=== PATIENT | male | born 1990 | race Caucasian/White ===

== ENCOUNTER 2021-05-31 12:28 | Inpatient (IN) | payer MEDICAID ==
[~2021-05-31] VITALS: Ht 185.4 cm; Wt 77.6 kg
[~2021-05-31 12:28] MED LIST: NICO-668 BC; NICO-687 TD; NO HOME MEDS; RISP2TAB85 PO; TRAZ-251 PO
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
[2021-05-31 13:55] VITALS: BP 138/95
[2021-05-31] MEDS ORDERED: mag hydrox/Alum hydrox/simeth 30ml oral suspension PO PRN (14:05)
[2021-05-31] MEDS ORDERED: acetaminophen 325mg tablet PO PRN ×2 (14:05)
[2021-05-31] MEDS ORDERED: loperamide 2mg capsule PO PRN (14:05)
[2021-05-31] MEDS ORDERED: OLAN2.5T3 PO (16:18)
[2021-05-31] MEDS: NICOTINE POLACRILEX 2 MG LOZENGE BC PRN ×3 (16:26→21:55)
[2021-05-31] MEDS: OLANZAPINE 5 MG TABLET PO PRN (18:56)
[2021-05-31] MEDS ORDERED: LORazepam 1 MG tablet PO ONE ×2 (19:10→23:40)
[2021-05-31] MEDS: traZODone 50mg tablet PO PRN (19:35)
[2021-05-31 20:00] VITALS: BP 129/87
[2021-05-31] MEDS ORDERED: olanzapine 10mg tablet PO SCH (21:00)
--- NOTE | 2021-06-01 00:47 | NUR ---
Nursing Progress Note: Jose Alejandro Legal hold: 5150 Client on involuntary status for GD Report received from JOSE Lay with use of SBAR Why are they here: Pt. a direct admit from [facility]. Per report pt. withdrawing from ETOH after binge drinking for over a year. Pt. reportedly drinking 1 quart of whiskey daily. Pt. 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 and experiencing AH. Pt. placed on 5150 for GD. Pt. had acute pancreatitis but was medically cleared for transfer. Pt. has been at [facility] since 05/24/21. Assessment What has happened this shift: Received pt pacing the hallways. Pt came to this RN after shift change and stated that a PCT (from day shift) promised him he could switch to bed B. After talking with the CN and room not being cleaned we were unable to make this request. Pt became very agitated and anxious. Provider notified and given 2MG Ativan with good effect. Pt then became adamant about being discharged this evening and wanted to talk to the provider. We were able to re-direct pt and he calmed down before snack time. We moved another pt in with Jose Alejandro and he ended up switching to bed B. Pt denies SI/HI and states he has some depression and anxiety. At 2330 pt began pacing and requested a sleeping aid. Provider ordered 2MG Ativan. S/I, H/I: Denies A/VH: Denies. Sleep: ADL's: Independent Group attendance: NA Were meds taken: Denies. None observed. Mental Status Exam Appearance: Disheveled, messy hair dressed in green unit scrubs Eye contact: WNL Behavior: agitated, anxious Speech: WNL Mood: agitated Affect: Angry/irritable Thought process: Linear Thought Content: Focused on switching beds/wanted to leave tonight Cognition: A&O x4 Insight: Fair Judgment: Fair Interventions PRN's used: trazadone, Ativan 2mg X2, Zyprexa 5mg Therapeutic interventions: Maintained a safe and supportive environment, ensured contract for safety, provided clear and simple instructions, provided direction and encouragement regarding performance of ADLs, and maintained Q15 minute safety checks. Restraints/seclusion/emergency medication: NA Justification of Continued Inpatient Treatment: Requires interruption of current crisis in a safe and therapeutic environment.
[2021-06-01] MEDS: NICOTINE POLACRILEX 2 MG LOZENGE BC PRN ×2 (02:47→11:43)
[2021-06-01 07:42] LABS: EOSINOPHILS # (AUTO) 0.3 X10'3 (0-0.9); EOSINOPHILS % (AUTO) 3.9 % (0-6); HEMATOCRIT 34.4 % (42.0-52.0); LYMPHOCYTES # (AUTO) 1.6 X10'3 (1.1-4.8); MONOCYTES # (AUTO) 1.5 X10'3 (0-0.9); MONOCYTES % (AUTO) 22.2 % (2-12); NEUTROPHILS # (AUTO) 3.2 X10'3 (1.8-7.7); WHITE BLOOD COUNT 6.7 X10'3 (4.5-11.0)
[2021-06-01 07:46] LABS: BASOPHILS # (AUTO) 0.1 X10'3 (0-0.2); BASOPHILS % (AUTO) 2.1 % (0-1); HEMOGLOBIN 11.9 g/dl (14.0-17.9); LYMPHOCYTES % (AUTO) 24.4 % (21-51); MEAN CORPUSCULAR HEMOGLOBIN 35.7 PG (27.0-31.0); MEAN CORPUSCULAR HGB CONC 34.5 g/dL (33.0-36.5); MEAN CORPUSCULAR VOLUME 103.6 FL (78-98); MEAN PLATELET VOLUME 7.5 FL (7.4-10.4); NEUTROPHILS % (AUTO) 47.4 % (42-75); PLATELET COUNT 594 X10'3 (140-440); RED BLOOD COUNT 3.32 X10'6 (4.70-6.10); RED CELL DISTRIBUTION WIDTH 13.4 % (11.5-14.5)
--- NOTE | 2021-06-01 08:14 | NUR ---
Malnutrition consult: Pt admitted from [facility] w/ EtOH withdrawal and hx of schizophrenia and bipolar per EMR. Pt has apparently been drinking 1 quart of liquor per day for the last year. Scaled wt hx shows a 14% wt loss over 2 years. Pt has reportedly had poor appetite for the last 3 months, though had ~85% of first meal here. Pt does appear thin per nursing note, no edema noted. At this time pt does not meet minimum criteria for malnutrition. Addendum: 06/01/21 at [address] Amended: Links added.
[2021-06-01 08:36] LABS: ALANINE AMINOTRANSFERASE 178 U/L (12-78); ALBUMIN 3.7 G/DL (3.4-5.0); ALBUMIN/GLOBULIN RATIO 1.2 (1.1-1.5); ALKALINE PHOSPHATASE 697 IU/L (46-116); ANION GAP 11 (8-16); ASPARTATE AMINO TRANSFERASE 99 U/L (10-37); BILIRUBIN,TOTAL 1.1 MG/DL (0.1-1.0); BLOOD UREA NITROGEN 10 MG/DL (7-18); BUN/CREATININE RATIO 16.9 (5.4-32.0); CALCIUM 9.8 MG/DL (8.5-10.1); CHLORIDE 99 MMOL/L (99-107); CHOL/HDL RATIO 5.6 (0.00-4.99); CHOLESTEROL 265 MG/DL (0-200); CREATININE 0.59 MG/DL (0.60-1.10); GLUCOSE 107 MG/DL (70-104); HDL CHOLESTEROL 47 MG/DL (35-60); LDL CHOLESTEROL 180 MG/DL (50-100); POTASSIUM 4.7 MMOL/L (3.5-5.1); SODIUM 137 MMOL/L (135-145); TOTAL CARBON DIOXIDE 26.8 MMOL/L (24-32); TOTAL PROTEIN 6.9 G/DL (6.4-8.2); TRIGLYCERIDES 104 MG/DL (20-135); eGFR > 90 ML/MIN
[2021-06-01 08:59] VITALS: BP 143/99
[2021-06-01 09:19] LABS: HEMOGLOBIN A1C 4.7 % (4.5-6.2)
[2021-06-01] MEDS: nicotine 21mg patch - 24 hr TD SCH (09:25)
--- NOTE | 2021-06-01 14:25 | NUR ---
Nursing Progress Note: Legal hold: 5150 Client on involuntary status for GD Report received from Mimi Van RN with use of SBAR Why are they here: Pt. is a direct admit from [facility]. Per report pt. withdrawing from ETOH after binge drinking for over a year. Pt. reportedly drinking 1 quart of whiskey daily. Pt. 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 He is experiencing AH. Pt. placed on 5150 for GD. Pt. had acute pancreatitis but was medically cleared for transfer. Pt. has been at [facility] since 05/24/21. Assessment What has happened this shift: Observed pt resting on his bed at the start of the shift. Pt observed before breakfast pacing the halls. Pt ate his meals and snacks in the main room with his peers. He is anxiously awaiting to see a provider hoping to be discharged. He isolates to his room most of the shift. S/I, H/I: Denies A/VH: Denies. Sleep: Did not sleep this shift ADL's: Independent Group attendance: NA Were Meds taken: Nicotine patch he has not see a provider. Mental Status Exam Appearance: Disheveled, messy hair dressed in green unit scrubs Eye contact: WNL Behavior: Anxious Speech: somewhat pressured Mood: slightly irritated waiting to see a doctor Affect: congruent with mood Thought process: Linear Thought Content: Focused on leaving Cognition: A&O x4 Insight: Fair Judgment: Fair Interventions PRN's used: Nicotine Irving. Therapeutic interventions: 1:1 assessment with therapeutic communication, provided PRN as requested, encouraged patience to stay in the hospital until seen by a provider, provided clear and simple instructions, provided direction and encouragement regarding performance of ADLs, and monitored Q15 minute safety checks. Restraints/seclusion/emergency medication: NA Justification of Continued Inpatient Treatment: Requires interruption of current crisis in a safe and therapeutic environment.
[2021-06-01] MEDS ORDERED: OLANZapine 5mg rapidly disint. tablet PO ONE (16:25)
[2021-06-01] MEDS ORDERED: diphenhydrAMINE 25mg capsule PO ONE (16:25)
[2021-06-01] MEDS ORDERED: LORazepam 1 MG tablet PO ONE (16:25)
[2021-06-01] MEDS: lactose-reduced food (Ensure High Protein) 237ml bottle PO SCH (18:18)
[2021-06-01 19:59] VITALS: BP 139/83
[2021-06-01] MEDS: olanzapine 10mg tablet PO SCH (20:06)
[2021-06-01] MEDS: thiamine 100mg tablet PO SCH (20:06)
[2021-06-01] MEDS: traZODone 50mg tablet PO PRN (23:33)
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
--- NOTE | 2021-06-02 00:57 | NUR ---
Nursing Progress Note: Legal hold: 5150 Client on involuntary status for GD Report received from JOSE Garcia with use of SBAR Why are they here: Pt. is a direct admit from [facility]. Per report pt. withdrawing from ETOH after binge drinking for over a year. Pt. reportedly drinking 1 quart of whiskey daily. Pt. 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 He is experiencing AH. Pt. placed on 5150 for GD. Pt. had acute pancreatitis but was medically cleared for transfer. Pt. has been at [facility] since 05/24/21. Assessment What has happened this shift: Pt lying on bed at start of shift. Pt suspicious of medications. "What are these" When explained Zyprexa helps you think more clearly Pt said "I am the greatest thinker in the history of the world" Then proceeded to take his meds including the Zyprexa. Pt allowed to stay in group room an extra hour to finish watching a movie. When staff closed room pt became very angry. Paced up and down in halls loudly complaining. He calmed down after about 5 minutes and apologized to staff. Took PRN Trazodone and after more pacing went to bed. S/I, H/I: Denies A/VH: Denies. Sleep:sleeping at this ADL's: Independent Group attendance: NA Were Meds taken: yes
[2021-06-02] MEDS: NICOTINE POLACRILEX 2 MG LOZENGE BC PRN ×4 (02:46→16:30)
--- NOTE | 2021-06-02 05:37 | NUR ---
Pt did not sleep at all this shift. Pt took PRN Trazodone at 2330 but refused any further medications to help him sleep. Refused to remove Nicotine Patch.
[2021-06-02] MEDS: folic acid 1mg tablet PO SCH (07:58)
[2021-06-02] MEDS: olanzapine 10mg tablet PO SCH ×2 (07:58→20:35)
[2021-06-02] MEDS: cyanocobalamin 500mcg tablet PO SCH (07:58)
[2021-06-02] MEDS: thiamine 100mg tablet PO SCH ×2 (07:58→20:35)
[2021-06-02] MEDS: multivitamins, therapeutics tablet PO SCH (07:58)
[2021-06-02] MEDS: nicotine 21mg patch - 24 hr TD SCH (07:58)
[2021-06-02] MEDS: lactose-reduced food (Ensure High Protein) 237ml bottle PO SCH ×3 (08:00→18:00)
[2021-06-02 08:16] VITALS: BP 142/96
--- NOTE | 2021-06-02 14:10 | NUR ---
Called [facility] to inform them that Dr Del Toro completed LPS referral. Faxed LPS referral to [facility] (Attn: Francheska). Fax# [phone] Phone# [phone] JOSE Johnson
--- NOTE | 2021-06-02 14:42 | NUR ---
Pt. attended group today. We talked about how we all look at the world differently due to our core beliefs. These core beliefs then inform thoughts and behaviors. Each pt. identified one negative core belief and then wrote out three truths that contradict their negative beliefs to work on thinking differently. Pt. came into the group toward the end of the group. He reported he needed a piece of paper that he could write his name on. One was given to him and he proceeded to practice writing his name on the page until he was satisfied with how his name looked. He then ripped out his around his name and asked if he could tape it to the wall. We located a spot on the wall and he taped his name there. After taping it he reported that he felt better to have his name there as a representation of the fact that he had been here. His demeanor was calm and pleasant. His thought process was linear and focused on completing his desire for his name to be on the wall. Meg Manning LCSW
--- NOTE | 2021-06-02 15:33 | NUR ---
Nursing Progress Note: Legal hold: 5150 Client on involuntary status for GD Report received from Marie GARCIA with use of SBAR Why are they here: Pt. is a direct admit from [facility]. Per report pt. withdrawing from ETOH after binge drinking for over a year. Pt. reportedly drinking 1 quart of whiskey daily. Pt. 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 He is experiencing AH. Pt. placed on 5150 for GD. Pt. had acute pancreatitis but was medically cleared for transfer. Pt. has been at [facility] since 05/24/21. Assessment What has happened this shift: Observed pt resting on his bed at the start of the shift. Pt pacing the halls frequently throughout the shift. Pt ate his meals and snacks in the main room with his peers. He is anxiously awaiting to see a provider hoping to be discharged. He isolates to his room most of the shift. Pt requested shower this am. Pt has been calmer today and does not verbalize as much delusional thought content today. S/I, H/I: Denies A/VH: Denies. Sleep: Did not sleep this shift ADL's: Independent Group attendance: no Were Meds taken: yes Mental Status Exam Appearance: Disheveled, messy hair dressed in green unit scrubs Eye contact: WNL Behavior: Anxious Speech: somewhat pressured Mood: slightly irritated waiting to see a doctor Affect: congruent with mood Thought process: Linear Thought Content: Focused on leaving Cognition: A&O x4 Insight: Fair Judgment: Fair Interventions PRN's used: Nicotine Irving Therapeutic interventions: 1:1 assessment with therapeutic communication, provided PRN as requested, encouraged patience to stay in the hospital until seen by a provider, provided clear and simple instructions, provided direction and encouragement regarding performance of ADLs, and monitored Q15 minute safety checks. Restraints/seclusion/emergency medication: NA Justification of Continued Inpatient Treatment: Requires interruption of current crisis in a safe and therapeutic environment.
[2021-06-02 19:13] VITALS: BP 135/95
[2021-06-02] MEDS: traZODone 50mg tablet PO PRN (20:35)
[2021-06-02] MEDS ORDERED: traZODone 50mg tablet PO ONE (20:40)
--- NOTE | 2021-06-02 22:09 | NUR ---
Nursing Progress Note: Legal hold: 5150 Client on involuntary status for GD Report received from Fredo GARCIA with use of SBAR Why are they here: Pt. is a direct admit from [facility]. Per report pt. withdrawing from ETOH after binge drinking for over a year. Pt. reportedly drinking 1 quart of whiskey daily. Pt. 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 He is experiencing AH. Pt. placed on 5150 for GD. Pt. had acute pancreatitis but was medically cleared for transfer. Pt. has been at [facility] since 05/24/21. Assessment What has happened this shift: Pt is sitting on his bed at change of shift. He states his day was "ok" Pt requested to trim his fingernails and tech stood by while he trimmed them. Pt took HS meds and declined to remove nicotine patch. Pt stated he wanted to sit up until his movie was over. Pt then requested a nicotine lozenge after going to bed and was told that it was too late for a lozenge at bedtime. Pt argued "it's only 10 after 10!" and stormed off to his room. S/I, H/I: Denies A/VH: Denies. Sleep: see sleep hours ADL's: Independent Group attendance: no Were Meds taken: yes Mental Status Exam Appearance: Disheveled, messy hair dressed in green unit scrubs Eye contact: WNL Behavior: Anxious, irritable, Speech: somewhat pressured Mood: irritable Affect: congruent with mood Thought process: Linear Thought Content: Focused on leaving Cognition: A&O x4 Insight: Fair Judgment: Fair Interventions PRN's used: none Therapeutic interventions: 1:1 assessment with therapeutic communication, provided PRN as requested, encouraged patience to stay in the hospital until seen by a provider, provided clear and simple instructions, provided direction and encouragement regarding performance of ADLs, and monitored Q15 minute safety checks. Restraints/seclusion/emergency medication: NA Justification of Continued Inpatient Treatment: Requires interruption of current crisis in a safe and therapeutic environment.
[2021-06-03] MEDS: NICOTINE POLACRILEX 2 MG LOZENGE BC PRN ×6 (06:50→18:24)
--- NOTE | 2021-06-03 07:23 | NUR ---
[facility] Faxed requested documents and left her a message stating Jose Alejandro's 5150 expires today and chief underwriter will fax [phone] once it is written. Phone# [phone] Fax# [phone] JOSE Johnson
[2021-06-03] MEDS: thiamine 100mg tablet PO SCH ×2 (07:27→20:44)
[2021-06-03] MEDS: olanzapine 10mg tablet PO SCH ×2 (07:27→20:44)
[2021-06-03] MEDS: cyanocobalamin 500mcg tablet PO SCH (07:27)
[2021-06-03] MEDS: lactose-reduced food (Ensure High Protein) 237ml bottle PO SCH (07:28)
[2021-06-03] MEDS: nicotine 21mg patch - 24 hr TD SCH (07:28)
[2021-06-03] MEDS: multivitamins, therapeutics tablet PO SCH (07:28)
[2021-06-03] MEDS: folic acid 1mg tablet PO SCH (07:28)
[2021-06-03 07:34] LABS: EOSINOPHILS # (AUTO) 0.2 X10'3 (0-0.9); LYMPHOCYTES # (AUTO) 1.6 X10'3 (1.1-4.8); LYMPHOCYTES % (AUTO) 23.9 % (21-51); MONOCYTES # (AUTO) 1.2 X10'3 (0-0.9)
[2021-06-03 07:36] LABS: EOSINOPHILS % (AUTO) 3.6 % (0-6); HEMATOCRIT 33.1 % (42.0-52.0); HEMOGLOBIN 11.4 g/dl (14.0-17.9); MEAN CORPUSCULAR HEMOGLOBIN 35.7 PG (27.0-31.0); MEAN CORPUSCULAR HGB CONC 34.4 g/dL (33.0-36.5); MEAN CORPUSCULAR VOLUME 103.7 FL (78-98); MEAN PLATELET VOLUME 6.9 FL (7.4-10.4); MONOCYTES % (AUTO) 17.4 % (2-12); NEUTROPHILS # (AUTO) 3.5 X10'3 (1.8-7.7); NEUTROPHILS % (AUTO) 52.2 % (42-75); PLATELET COUNT 697 X10'3 (140-440); RED BLOOD COUNT 3.19 X10'6 (4.70-6.10); RED CELL DISTRIBUTION WIDTH 13.4 % (11.5-14.5); WHITE BLOOD COUNT 6.7 X10'3 (4.5-11.0)
[2021-06-03 08:10] VITALS: BP 143/90
[2021-06-03 08:17] LABS: ALANINE AMINOTRANSFERASE 126 U/L (12-78); ALBUMIN 3.7 G/DL (3.4-5.0); ALBUMIN/GLOBULIN RATIO 1.2 (1.1-1.5); ALKALINE PHOSPHATASE 509 IU/L (46-116); ANION GAP 11 (8-16); ASPARTATE AMINO TRANSFERASE 64 U/L (10-37); BILIRUBIN,TOTAL 0.9 MG/DL (0.1-1.0); BLOOD UREA NITROGEN 16 MG/DL (7-18); BUN/CREATININE RATIO 26.2 (5.4-32.0); CALCIUM 9.4 MG/DL (8.5-10.1); CHLORIDE 100 MMOL/L (99-107); CREATININE 0.61 MG/DL (0.60-1.10); GLUCOSE 96 MG/DL (70-104); POTASSIUM 4.1 MMOL/L (3.5-5.1); SODIUM 136 MMOL/L (135-145); TOTAL CARBON DIOXIDE 24.9 MMOL/L (24-32); TOTAL PROTEIN 6.8 G/DL (6.4-8.2); eGFR > 90 ML/MIN
[2021-06-03 09:28] LABS: PLATELET ESTIMATE INCREASED; TOTAL CELLS COUNTED 100
[2021-06-03] MEDS ORDERED: lactose-reduced food (Ensure Enlive) - 237ml bottle PO SCH ×2 (13:00→18:00)
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
--- NOTE | 2021-06-03 17:27 | NUR ---
Nursing Progress Note: Legal hold: 5150 Client on involuntary status for GD/ DTS Report received from SHARIF Barragan with use of SBAR. Why are they here: Pt. is a direct admit from [facility]. Per report pt. withdrawing from ETOH after binge drinking for over a year. Pt. reportedly drinking 1 quart of whiskey daily. Pt. 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 He is experiencing AH. Pt. placed on 5150 for GD. Pt. had acute pancreatitis but was medically cleared for transfer. Pt. has been at [facility] since 05/24/21. Assessment What has happened this shift: Patient is awake in his room at the start of the shift. Requests a nicotine lozenge. Patient is intrusive and restless. Perseverates on wanting to discharge. Denies AH but states he hears people in his head and converses with them. States, They are from the neurotransmitters that whoever those people are put in and they talk to me. So I dont want to say one way or the other but its not schizophrenia. I dont have any mental health problems. Spends time on the phone requesting to be picked up. Patient is served with a Nex[employer]0 which he appears somewhat upset about but does not have an outburst. Requests a paper out of his locker which has phone numbers on it and states he has 2 days to call the governors of all 50 states as a concerned citizen. S/I, H/I: Denies A/VH: Endorses having conversations and hearing people in his head but denies they are AH. Sleep: None noted this shift ADL's: Independent Group attendance: No Were Meds taken: Yes Any med S/E: None observed or reported Mental Status Exam Appearance: Young appearing, thin man, disheveled, messy hair dressed in green unit scrubs Eye contact: Good Behavior: Cooperative, intrusive, anxious, irritable Speech: Clear, pressured Mood: Irritable Affect: congruent, full range Thought process: Linear Thought Content: Wanting to discharge Cognition: A&O x4 Insight: Poor Judgment: Poor Interventions PRN's used: nicotine lozenge Therapeutic interventions: 1:1 assessment with therapeutic communication, provided PRN as requested, encouraged patience to stay in the hospital until seen by a provider, provided clear and simple instructions, provided direction and encouragement regarding performance of ADLs, and monitored Q15 minute safety checks. Restraints/seclusion/emergency medication: NA Justification of Continued Inpatient Treatment: Requires interruption of current crisis in a safe and therapeutic environment.
[2021-06-03 19:22] VITALS: BP 142/94
[2021-06-03] MEDS: traZODone 50mg tablet PO PRN (20:45)
--- NOTE | 2021-06-03 22:04 | NUR ---
Nursing Progress Note: Legal hold: 5150 Client on involuntary status for GD/ DTS Report received from SHARIF Yoo with use of SBAR. Why are they here: Pt. is a direct admit from [facility]. Per report pt. withdrawing from ETOH after binge drinking for over a year. Pt. reportedly drinking 1 quart of whiskey daily. Pt. 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 He is experiencing AH. Pt. placed on 5150 for GD. Pt. had acute pancreatitis but was medically cleared for transfer. Pt. has been at [facility] since 05/24/21. Assessment What has happened this shift: Pt was walking in the cuellar at change of shift. Requested nicotine lozenge. Pt later makes a statement about how he was up all night last night "playing tug of war with the door" with Caroline RAHMAN when she was doing rounds. Pt later was repeatedly asking for the remote control from the same BINDING MACHINE OPERATOR later in the shift tonight. Pt appears to be anxious but denies anxiety when asked about it. At meds pt began dramatically shaking his head and jumping around and spitting his pills all over the floor. Pt was asked to order picker the pills and he did. Pt was given more pills which he swallowed. He requested another nicotine lozenge and sat watching a movie after snack before going to bed. SI/HI: denies A/VH: denies Sleep:see sleep hours ADL's: Independent Group attendance: No Were Meds taken: Yes after spitting them out the first time Any med S/E: None observed or reported Mental Status Exam Appearance: Young appearing, thin man, disheveled, messy hair dressed in green unit scrubs Eye contact: fair Behavior: Cooperative, intrusive, anxious, irritable Speech: Clear, pressured Mood: anxious, Affect: congruent, guarded Thought process: delusional, paranoid Thought Content: Wanting to discharge Cognition: A&O x4 Insight: Poor Judgment: Poor Interventions PRN's used: nicotine lozenge Therapeutic interventions: 1:1 assessment with therapeutic communication, provided PRN as requested, encouraged patience to stay in the hospital until seen by a provider, provided clear and simple instructions, provided direction and encouragement regarding performance of ADLs, and monitored Q15 minute safety checks. Restraints/seclusion/emergency medication: NA Justification of Continued Inpatient Treatment: Requires interruption of current crisis in a safe and therapeutic environment.
[2021-06-04] MEDS: NICOTINE POLACRILEX 2 MG LOZENGE BC PRN ×7 (05:53→23:00)
--- NOTE | 2021-06-04 07:27 | NUR ---
LPS referral Francheska [facility] (ph# [phone]), requested the original LPS referral get mailed to [facility]. Mailed it to: [id number] [place] [address] JOSE Johnson
[2021-06-04] MEDS: thiamine 100mg tablet PO SCH ×2 (07:32→20:07)
[2021-06-04] MEDS: cyanocobalamin 500mcg tablet PO SCH (07:32)
[2021-06-04] MEDS: olanzapine 10mg tablet PO SCH ×2 (07:32→20:07)
[2021-06-04] MEDS: multivitamins, therapeutics tablet PO SCH (07:32)
[2021-06-04] MEDS: folic acid 1mg tablet PO SCH (07:32)
[2021-06-04] MEDS: nicotine 21mg patch - 24 hr TD SCH (07:39)
[2021-06-04 08:00] VITALS: BP 131/86
--- NOTE | 2021-06-04 10:35 | NUR ---
Initial: Pt admit dx psychosis, schizophrenia, and EtoH abuse per EMR. Pt currently on regular diet receiving double protein w/ mostly 100% PO intake and meeting nutrient needs. Pt was receiving Ensure Enlive since 06/01 and drinking 100%, though it has been discontinued 06/03 per EMR. LBM 06/02, bowel care available PRN per EMR. No nutrition intervention implemented at this time. Will continue to monitor. Recommendations: 1. Continue regular diet w/ double protein 2. Continue thiamine, folic acid, and multivitamin given EtoH hx 3. Bowel care per rx 4. Weekly scaled wts Addendum: 06/04/21 at [address] Amended: Links added. Addendum: 06/04/21 at [address] SIGRID has reviewed and approves of above note.
--- NOTE | 2021-06-04 16:52 | NUR ---
Nursing Progress Note: Legal hold: 5250 Client on involuntary status for GD/ DTS Report received from SHARIF Barragan with use of SBAR. Why are they here: Pt. is a direct admit from [facility]. Per report pt. withdrawing from ETOH after binge drinking for over a year. Pt. reportedly drinking 1 quart of whiskey daily. Pt. 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 He is experiencing AH. Pt. placed on 5150 for GD. Pt. had acute pancreatitis but was medically cleared for transfer. Pt. has been at [facility] since 05/24/21. Assessment What has happened this shift: Patient asleep at change of shift, awoke around 0645, stating he slept good and felt well rested. 1:1 done at bedside, polite and cooperative. Pt. denies having a mental illness but then went on describing how neuro-technology has been targeting me for 4 years through the government/cooperations and they are crucifying, torturing and even raping me. He believes his heart is in his stomach as well. Pt. states he is having regular bowel movements but is straining during bowel movements. Pt. requested prune juice mixed with apple juice to help. Denies wanting medication to help relieve discomfort. Nicotine lozenge requested 3X. S/I, H/I: Denies A/VH: Endorses having conversations and hearing people in his head but denies they are AH. Sleep: napped on and off throughout the shift. ADL's: Independent Group attendance: Yes Were Meds taken: Yes Any med S/E: None observed or reported Mental Status Exam Appearance: Young appearing, thin man, disheveled, messy hair dressed in green unit scrubs Eye contact: Good Behavior: Cooperative, anxious, polite Speech: Clear, soft Mood: Pleasant, appropriate Affect: Congruent with mood. Thought process: Linear Thought Content: Focused on showering. Cognition: A&O x4 Insight: Poor Judgment: Poor Interventions PRN's used: nicotine lozenge X3 Therapeutic interventions: 1:1 assessment with therapeutic communication, provided PRN as requested, encouraged patience to stay in the hospital until seen by a provider, provided clear and simple instructions, provided direction and encouragement regarding performance of ADLs, and monitored Q15 minute safety checks. Restraints/seclusion/emergency medication: NA Justification of Continued Inpatient Treatment: Requires interruption of current crisis in a safe and therapeutic environment. Addendum: 06/04/21 at 1700 by Nerissa Narvaez RN showered this shift.
[2021-06-04] MEDS: OLANZAPINE 5 MG TABLET PO PRN (18:46)
[2021-06-04 20:00] VITALS: BP 140/86
[2021-06-04] MEDS: traZODone 50mg tablet PO PRN ×2 (20:07→21:34)
[2021-06-04 21:08] VITALS: BP 140/86
[2021-06-05] MEDS: NICOTINE POLACRILEX 2 MG LOZENGE BC PRN ×4 (02:38→21:20)
[2021-06-05] MEDS ORDERED: OLANZapine 5mg rapidly disint. tablet PO ONE (03:15)
[2021-06-05] MEDS ORDERED: LORazepam 1 MG tablet PO ONE ×3 (03:15→10:00)
--- NOTE | 2021-06-05 03:31 | NUR ---
Nursing Progress Note: Legal hold: 5250 Client on involuntary status for GD/ DTS Report received from SHARIF Yoo with use of SBAR. Why are they here: Pt. is a direct admit from [facility]. Per report pt. withdrawing from ETOH after binge drinking for over a year. Pt. reportedly drinking 1 quart of whiskey daily. Pt. 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 He is experiencing AH. Pt. placed on 5150 for GD. Pt. had acute pancreatitis but was medically cleared for transfer. Pt. has been at [facility] since 05/24/21. Assessment What has happened this shift: Pt is agitated at change of shift and is responding to internal stimuli. Pt states "theyre using neurotechnology on me." Pt was given prn zyprexa with minimal effect. He continued to say bizarre things "they just answered you from room number 3 did you hear that?" Pt is anxious and paranoid when taking pills. Takes his pills dramatically throwing his head back, gagging and spitting them back in the paper cup, smashing the cup and then sucking the pills out of the paper cup. (best to use a hard plastic med cup on subsequent med passes to avoid this). Offered to crush patients pills for him and he states he does not want them crushed. Pt took HS meds, prn trazodone and repeat dose of trazodone but was still unable to fall asleep. Pt was restless during the night stating that he prefers to sleep during the day and reports he slept all day and doesn't need sleep. Pt became agitated and continued to decompensate. pt refused repeat prn dose of zyprexa. He then came to the rec room and was talking about "the neurotechnology, the room being bugged, hearing music and frequencies" from the ceiling and other rooms. Pt approached pct July and proceeded to place headphones on her head and insist she listen to them. Charge nurse intervened and removed the headphones and encouraged him to return to his room. Pt wanted to keep the headphones for "evidence" and wanted to "call the police on them." Pt removed the batteries and left them on the shelf in his room and they were removed from his room. P/C to provider pt was given prn zyprexa and ativan and he was agreeable to take both. Pt again took pills, gagged, spit them out in the cup them drank them down. Pt asked this justowriter operator to listen for the music coming from the [place]. Provided reality feedback told pt I didnt hear any music. Pt states "did you see clockwork orange? thats what they are doing to me." then he looks away and asks "What did you say room 5 I didnt hear that,." Pt states he will be able to calm himself and attempted to lay down. Approx 30 minutes after taking the meds he is somewhat calmer laying in bed, continues to endorse AH, hearing music and voices. Then he draws a space with his finger in the air and states "I can see people with knives and sex toys but only in this space" Pt is fearful but seems to be more calm and allows me to turn off the light in his room and is attempting to rest. S/I, H/I: Denies A/VH: hearing music, voices, "neurotechnology controlling him" seeing people with knives and sex toys. Sleep: see sleep hours pt isnt sleeping ADL's: Independent Group attendance: isolating to his room Were Meds taken: Yes Any med S/E: None observed or reported Mental Status Exam Appearance: Unkempt, although showered previous shift, wearing scrub pants and his own tshirt. Eye contact: Good Behavior: Cooperative, anxious, bizzare Speech: Clear, soft Mood: anxious, agitated Affect: bizarre, labile Thought process: Linear, paranoid delusions, hallucinations Thought Content: hearing voices "nanotechnology in the [place]" Cognition: A&O x4 Insight: Poor Judgment: Poor Interventions PRN's used: nicotine lozenges, zyprexa 5mg, trazodone, repeat dose of trazadone, zyprexa 10mg and ativan 2mg. Therapeutic interventions: 1:1 assessment with therapeutic communication, provided PRN as requested, encouraged patience to stay in the hospital until seen by a provider, provided clear and simple instructions, provided direction and encouragement regarding performance of ADLs, and monitored Q15 minute safety checks. Restraints/seclusion/emergency medication: NA Justification of Continued Inpatient Treatment: Requires interruption of current crisis in a safe and therapeutic environment. --
[2021-06-05] MEDS: multivitamins, therapeutics tablet PO SCH (07:27)
[2021-06-05] MEDS: olanzapine 10mg tablet PO SCH ×2 (07:27→20:27)
[2021-06-05] MEDS: folic acid 1mg tablet PO SCH (07:27)
[2021-06-05] MEDS: thiamine 100mg tablet PO SCH ×2 (07:27→20:27)
[2021-06-05] MEDS: cyanocobalamin 500mcg tablet PO SCH (07:27)
[2021-06-05 07:36] VITALS: BP 131/95
[2021-06-05] MEDS: nicotine 21mg patch - 24 hr TD SCH (07:36)
[2021-06-05 12:32] LABS: ALANINE AMINOTRANSFERASE 106 U/L (12-78); ALBUMIN 3.2 G/DL (3.4-5.0); ALKALINE PHOSPHATASE 316 IU/L (46-116); ANION GAP 11 (8-16); ASPARTATE AMINO TRANSFERASE 54 U/L (10-37); BILIRUBIN,TOTAL 0.6 MG/DL (0.1-1.0); BLOOD UREA NITROGEN 10 MG/DL (7-18); BUN/CREATININE RATIO 15.9 (5.4-32.0); CALCIUM 8.6 MG/DL (8.5-10.1); CHLORIDE 102 MMOL/L (99-107); CREATININE 0.63 MG/DL (0.60-1.10); GLUCOSE 76 MG/DL (70-104); LIPASE 350 U/L (73-393); POTASSIUM 3.7 MMOL/L (3.5-5.1); SODIUM 136 MMOL/L (135-145); TOTAL PROTEIN 6.3 G/DL (6.4-8.2); eGFR > 90 ML/MIN
--- NOTE | 2021-06-05 18:02 | NUR ---
Nursing Progress Note: Legal hold: 5250 Client on involuntary status for GD/ DTS Report received from SHARIF Barragan with use of SBAR. Why are they here: Pt. is a direct admit from [facility]. Per report pt. withdrawing from ETOH after binge drinking for over a year. Pt. reportedly drinking 1 quart of whiskey daily. Pt. 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 He is experiencing AH. Pt. placed on 5150 for GD. Pt. had acute pancreatitis but was medically cleared for transfer. Pt. has been at [facility] since 05/24/21. Assessment What has happened this shift: RN received pt. awake and visibly anxious, stating that he needs his wallet and keys and needs to be discharged. RN attempted to explain to the patient that he needed a discharge order first but is unable to comprehend. A loud yell was heard coming from the patients room at 0730, when staff arrived pt. was found on the floor. Pt. states that he fell while trying to fix the dividing curtain. Pt. assessed and has no visible markings on his body. Vital signs obtained and pt. has HR of 101, Resp 18, Spo2 96%, BP 125/83 and c/o of pain of 6/10 to head and R-leg. RN informed provider and received orders to continue to monitor as well as a now dose of Ativan 2mg po. Pt. received with moderate effect at 0800, however, pt. began to get agitated again, asking to leave, going into other patients rooms, experiencing hand tremors, and appearing to have visual hallucinations. At 1000 RN received another order for Ativan 2mg po, as well as Lipase, CMP, and Ammonia lab orders. Provider informed of pt.s lab results. Pt. placed on LOS while awake for his erratic behavior. Pt. reports that alvaro-technology is the reason he is here and believes he does not need medications, that his mental illness is an illusion of alvaro-technology. Pt. had hearing for his 5250 hold and hold was upheld. Pt. slept in the evening. S/I, H/I: Denies A/VH: +VH/AH (Alvaro-technology) Sleep: Pt. slept .5 hrs last night and napped approx. 2 hrs. ADL's: Independent Group attendance: No Were Meds taken: Yes Any med S/E: None observed or reported Mental Status Exam Appearance: Young, jaundiced, thin man, disheveled, messy hair dressed in green unit scrubs Eye contact: WNL Behavior: Impulsive, intrusive, anxious, irritable Speech: Pressured, mostly clear, mumbles at times. Mood: Anxious, agitated. Affect: Blunted Thought process: Disorganized, tangential in the AM. In the afternoon pt. perseverating on paranoid delusions. Thought Content: Wanting to discharge and alvaro-technology. Cognition: A&O x2 to person and place. Insight: Poor Judgment: Poor Interventions PRN's used: Ativan 2mg po x2 Therapeutic interventions: 1:1 assessment with therapeutic communication, provided PRN as requested, encouraged patience to stay in the hospital until seen by a provider, provided clear and simple instructions, provided direction and encouragement regarding performance of ADLs, and monitored Q15 minute safety checks. Restraints/seclusion/emergency medication: NA Justification of Continued Inpatient Treatment: Requires interruption of current crisis in a safe and therapeutic environment.
[2021-06-05] MEDS: traZODone 50mg tablet PO PRN (20:27)
[2021-06-06] MEDS: OLANZAPINE 5 MG TABLET PO PRN (00:19)
[2021-06-06] MEDS: traZODone 50mg tablet PO PRN ×2 (00:19→19:44)
--- NOTE | 2021-06-06 01:25 | NUR ---
Nursing Progress Note: Legal hold: 5250 Patient on involuntary status for GD/ DTS Report received from JOSE Lay with use of SBAR. Why are they here: Pt. is a direct admit from [facility]. Per report pt. withdrawing from ETOH after binge drinking for over a year. Pt. reportedly drinking 1 quart of whiskey daily. Pt. 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 He is experiencing AH. Pt. placed on 5150 for GD. Pt. had acute pancreatitis but was medically cleared for transfer. Pt. has been at [facility] since 05/24/21. Assessment What has happened this shift: Patient observed sleeping in his bed at the beginning of shift. Mostly cooperative this shift but argues at times when he doesn't like staff responses. Patient was cooperative with medication but took a couple of attempts to swallow. He originally put all his meds in his mouth, spit a few back into the cup and then took them again. Nicotine patch was removed by director underwriter sales during med pass without issues. He denies SI, HI, A/VH but continues to report delusional thought content about alvaro-technology being passed through the headsets. Patient briefly watched TV in recreation room and when he was done requested a nicotine lozenge and his patch; director underwriter sales explained he gets his patch in the AM. He was slightly irritable stating that's not how it's been done but appeared satisfied with his lozenge. Patient was provided HS snacks this shift; he is observed sleeping and appears to be slightly broken but improvement from previous nights. S/I, H/I: Denies A/VH: Responding to IS and reporting alvaro-technology being passed through headsets Sleep: Refer to sleep assessment ADL's: Independent Group attendance: NA Were Meds taken: Yes Any med S/E: None observed or reported Mental Status Exam Appearance: Disheveled, unkempt hair, green unit attire soiled with food Eye contact: Intense Behavior: Impulsive, intrusive, anxious, irritable Speech: Pressured, mostly clear, mumbles at times. Mood: Labile Affect: Congruent Thought process: Disorganized, delusions Thought Content: Meeting needs, alvaro-technology Cognition: A&O x2 to person and place. Insight: Poor Judgment: Poor Interventions PRN's used: Ativan, Trazodone x2, Zyprexa, Nicotine lozenge Therapeutic interventions: 1:1 assessment with therapeutic communication, provided PRN as requested, encouraged patience to stay in the hospital until seen by a provider, provided clear and simple instructions, provided direction and encouragement regarding performance of ADLs, and monitored Q15 minute safety checks. Restraints/seclusion/emergency medication: NA Justification of Continued Inpatient Treatment: Requires interruption of current crisis in a safe and therapeutic environment.
[2021-06-06] MEDS: NICOTINE POLACRILEX 2 MG LOZENGE BC PRN ×7 (04:26→21:46)
[2021-06-06] MEDS: cyanocobalamin 500mcg tablet PO SCH (07:07)
[2021-06-06] MEDS: folic acid 1mg tablet PO SCH (07:07)
[2021-06-06] MEDS: thiamine 100mg tablet PO SCH ×2 (07:07→19:44)
[2021-06-06] MEDS: nicotine 21mg patch - 24 hr TD SCH (07:07)
[2021-06-06] MEDS: multivitamins, therapeutics tablet PO SCH (07:07)
[2021-06-06] MEDS: olanzapine 10mg tablet PO SCH ×2 (07:07→19:45)
[2021-06-06 07:16] VITALS: BP 142/102
--- NOTE | 2021-06-06 14:43 | NUR ---
Nursing Progress Note: Legal hold: 5250 Client on involuntary status for GD/ DTS Report received from SHARIF Knox with use of SBAR. Why they are here: Pt. is a direct admit from [facility]. Per report pt. withdrawing from ETOH after binge drinking for over a year. Pt. reportedly drinking 1 quart of whiskey daily. Pt. 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 He is experiencing AH. Pt. placed on 5150 for GD. Pt. had acute pancreatitis but was medically cleared for transfer. Pt. has been at [facility] since 05/24/21. Assessment What happened this shift: Patient is awake in his room at the start of the shift. Requests nicotine lozenge first thing. Cooperative with 1:1 assessment and medications. Continues to endorse hearing voices which he states are from the alvaro technology that was put inside him. Appears internally occupied. Patient is restless and appears anxious. Denies any mental health symptoms and does not understand why he is here. Perseverates on wanting to discharge. S/I, H/I: Denies A/VH: Continues to report hearing voices related to alvaro-technology he believes has been put inside him. Sleep: None noted this shift. ADL's: Independent Group attendance: No Were Meds taken: Yes Any med S/E: Slight hand tremor is noted. Mental Status Exam Appearance: Young, thin man, disheveled, messy hair dressed in green unit scrubs Eye contact: Good Behavior: Cooperative, impulsive, intrusive, anxious Speech: Clear, pressured Mood: Good. Affect: Constricted Thought process: Disorganized, tangential. Thought Content: Perseverates on discharge. Cognition: A&O x2 to person and place. Insight: Poor Judgment: Poor Interventions PRN's used: Nicotine lozenge Therapeutic interventions: 1:1 assessment with therapeutic communication, provided PRN as requested, encouraged patience to stay in the hospital until seen by a provider, provided clear and simple instructions, provided direction and encouragement regarding performance of ADLs, and monitored Q15 minute safety checks. Restraints/seclusion/emergency medication: NA Justification of Continued Inpatient Treatment: Requires interruption of current crisis in a safe and therapeutic environment.
[2021-06-06 19:00] VITALS: BP 130/91
[2021-06-06] MEDS: clonazePAM 1mg tablet PO SCH (19:44)
--- NOTE | 2021-06-07 02:27 | NUR ---
Nursing Progress Note: Legal hold: 5250 Patient on involuntary status for GD/ DTS Report received from JOSE Lay with use of SBAR. Why are they here: Pt. is a direct admit from [facility]. Per report pt. withdrawing from ETOH after binge drinking for over a year. Pt. reportedly drinking 1 quart of whiskey daily. Pt. 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 He is experiencing AH. Pt. placed on 5150 for GD. Pt. had acute pancreatitis but was medically cleared for transfer. Pt. has been at [facility] since 05/24/21. Assessment What has happened this shift: Patient watching TV at the beginning of shift. Pleasant and cooperative with care; compliant with medication. Nicotine patch removed/discarded by technical proposal writer. PRN Trazodone and Nicotine lozenges provided this shift. Body tremors observed; he is unable to hold his hands still when attempting to receive an object and when standing still he continues to shake. Patient reports AH r/t alvaro-technology. Patient appeared more aware that the noise he is hearing "alvaro-technology" are hallucinations and not real this shift. He denies SI, HI and VH. Patient participated in HS snack and continued to watch TV and use the bicycle prior to bed; observed sleeping and does not appear to be having difficulty this shift. S/I, H/I: Denies A/VH: +AH Sleep: Refer to sleep assessment ADL's: Independent Group attendance: NA Were Meds taken: Yes Any med S/E: Body tremors Mental Status Exam Appearance: Disheveled, unkempt hair, green unit attire Eye contact: Good Behavior: Pleasant and cooperative, tremors Speech: Pressured, mostly clear, mumbles at times. Mood: "Good" Affect: Congruent Thought process: Disorganized, delusions Thought Content: Meeting needs, alvaro-technology Cognition: A&O x2 to person and place. Insight: Poor Judgment: Poor Interventions PRN's used: Trazodone and Nicotine lozenge Therapeutic interventions: 1:1 assessment with therapeutic communication, provided PRN as requested, encouraged patience to stay in the hospital until seen by a provider, provided clear and simple instructions, provided direction and encouragement regarding performance of ADLs, and monitored Q15 minute safety checks. Restraints/seclusion/emergency medication: NA Justification of Continued Inpatient Treatment: Requires interruption of current crisis in a safe and therapeutic environment.
[2021-06-07] MEDS: NICOTINE POLACRILEX 2 MG LOZENGE BC PRN ×5 (06:32→18:39)
[2021-06-07 08:00] VITALS: BP 157/93
[2021-06-07] MEDS: thiamine 100mg tablet PO SCH ×2 (08:09→20:38)
[2021-06-07] MEDS: olanzapine 10mg tablet PO SCH ×2 (08:09→20:37)
[2021-06-07] MEDS: clonazePAM 1mg tablet PO SCH ×2 (08:09→20:39)
[2021-06-07] MEDS: multivitamins, therapeutics tablet PO SCH (08:09)
[2021-06-07] MEDS: cyanocobalamin 500mcg tablet PO SCH (08:09)
[2021-06-07] MEDS: folic acid 1mg tablet PO SCH (08:09)
[2021-06-07] MEDS: nicotine 21mg patch - 24 hr TD SCH (08:10)
--- NOTE | 2021-06-07 15:06 | NUR ---
Nursing Progress Note Legal hold: 5250 Client on involuntary status for GD/ DTS Report received RN with use of SBAR Why they are here: Pt. is a direct admit from [facility]. Per report pt. withdrawing from ETOH after binge drinking for over a year. Pt. reportedly drinking 1 quart of whiskey daily. Pt. 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 He is experiencing AH. Pt. placed on 5150 for GD. Pt. had acute pancreatitis but was medically cleared for transfer. Pt. has been at [facility] since 05/24/21. Assessment What happened this shift: Received Pt in bed sleeping w/o distress at the beginning of the shift. Pt woke and was cooperative with vitals and asked for a nicotine lozenge. He took AM meds w/o issue and ate meals well. Pt is disheveled and napped throughout the day. Pt is guarded and isolative from other Pts. Spent most of day in his room. Pt remains delusional about alvaro tech in him and does not think he needs to be here, although cooperative with care. S/I, H/I: Denies A/VH: + delusions Sleep: None noted this shift ADL's: Independent Group attendance: No Were Meds taken: Yes Any med S/E: None reported or noted Mental Status Exam Appearance: Young, thin man, disheveled in scrubs Eye contact: Good Behavior: Cooperative, impulsive, anxious Speech: Clear, pressured at times Mood: Good Affect: Constricted Thought process: Disorganized Thought Content: Perseverates on discharge Cognition: A&O x2 to person and place Insight: Poor Judgment: Poor Interventions PRN's used: Nicotine lozenge Therapeutic interventions: 1:1 assessment with therapeutic communication, provided PRN as requested, encouraged patience to stay in the hospital until seen by a provider, provided clear and simple instructions, provided direction and encouragement regarding performance of ADLs, and monitored Q15 minute safety checks. Restraints/seclusion/emergency medication: NA Justification of Continued Inpatient Treatment: Requires interruption of current crisis in a safe and therapeutic environment.
[2021-06-07 19:00] VITALS: BP 136/97
[2021-06-07] MEDS: traZODone 50mg tablet PO PRN (20:38)
--- NOTE | 2021-06-07 23:12 | NUR ---
Nursing Progress Note Legal hold: 5250 Client on involuntary status for GD/ DTS Report received RN with use of SBAR Why they are here: Pt. is a direct admit from [facility]. Per report pt. withdrawing from ETOH after binge drinking for over a year. Pt. reportedly drinking 1 quart of whiskey daily. Pt. 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 He is experiencing AH. Pt. placed on 5150 for GD. Pt. had acute pancreatitis but was medically cleared for transfer. Pt. has been at [facility] since 05/24/21. Assessment What happened this shift: Pt walking around unit on shift change. Pt asked for a nicotine lozenge. Pt is polite and appropriate. Pt believes that there are alvaro bots and they are try to take over. Pt doesn't believe there is anything wrong with him and he does not belong here. Pt mostly isolated to self, very quiet at times. Pt sat in rec room staring out window eating evening snack by himself. Pt took evening meds w/o complications and wwen tot bed shortly after. S/I, H/I: Denies A/VH: + delusions Sleep: see sleep hours ADL's: Independent Group attendance: No group in the evenings Were Meds taken: Yes Any med S/E: None reported or noted Mental Status Exam Appearance: Young, thin man, disheveled in scrubs Eye contact: Good Behavior: Cooperative, impulsive, anxious Speech: Clear, pressured at times Mood: Good Affect: Constricted Thought process: Disorganized Thought Content: Perseverates on discharge Cognition: A&O x2 to person and place Insight: Poor Judgment: Poor Interventions PRN's used: Nicotine lozenge Therapeutic interventions: 1:1 assessment with therapeutic communication, provided PRN as requested, encouraged patience to stay in the hospital until seen by a provider, provided clear and simple instructions, provided direction and encouragement regarding performance of ADLs, and monitored Q15 minute safety checks. Restraints/seclusion/emergency medication: NA Justification of Continued Inpatient Treatment: Requires interruption of current crisis in a safe and therapeutic environment.
[2021-06-08] MEDS: NICOTINE POLACRILEX 2 MG LOZENGE BC PRN ×4 (07:35→17:35)
[2021-06-08 08:17] VITALS: BP 128/93
[2021-06-08] MEDS: olanzapine 10mg tablet PO SCH ×2 (08:48→20:26)
[2021-06-08] MEDS: clonazePAM 1mg tablet PO SCH ×2 (08:48→20:26)
[2021-06-08] MEDS: multivitamins, therapeutics tablet PO SCH (08:48)
[2021-06-08] MEDS: folic acid 1mg tablet PO SCH (08:48)
[2021-06-08] MEDS: cyanocobalamin 500mcg tablet PO SCH (08:48)
[2021-06-08] MEDS: nicotine 21mg patch - 24 hr TD SCH (08:48)
[2021-06-08] MEDS: thiamine 100mg tablet PO SCH ×2 (08:48→20:26)
--- NOTE | 2021-06-08 09:20 | NUR ---
TC from RN stating pt is requesting additional vegetables, no carbs, and Ensures w/ meals. Pt is eating mostly 100% of meals w/ double protein meeting needs currently. Will provide double vegetables w/ meals and smoothies/shakes BID, d/w dietary Addendum: 06/08/21 at [address] Amended: Links added.
--- NOTE | 2021-06-08 17:56 | NUR ---
Nursing Progress Note Legal hold: 5250 Client on involuntary status for GD/ DTS Report received from JOSE Overton, with use of SBAR Why they are here: Pt. is a direct admit from [facility]. Per report pt. withdrawing from ETOH after binge drinking for over a year. Pt. reportedly drinking 1 quart of whiskey daily. Pt. 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 He is experiencing AH. Pt. placed on 5150 for GD. Pt. had acute pancreatitis but was medically cleared for transfer. Pt. has been at [facility] since 05/24/21. Assessment What happened this shift: Received patient while he was sleeping in his room. Patient awake before breakfast at 0730, and requested a Nicotine Lozenge at this time. Patient reports Im doing good. Patient reports he was able to sleep last night and is feeling okay this morning. Patient ate his breakfast in the Community Room. When patient was done with breakfast, he approached me and asked for the following diet changes: 1) More Vegetables on each meal tray. 2) No carbohydrates. 3) Request an Ensure with each meal tray. Fax sent to the Dietary Office with the above requests. 1:1 Patient Assessment and Interview Completed. Patient is pleasant and respectful with any requests. Patient self isolates in his room between meals or will sit in the TV Room with the chair faced out towards the window. Patient could be overheard talking out loud to possibly internal stimuli. Patient participated in snack line and ambulated in the hallways. After lunch, patient approached and requested some minor changes to his diet. Second Round of Changes faxed to dietary were 1) Patient does not want sweet carbs, but will have pasta & rice. 2) Patient asked for strawberry/banana shakes. S/I, H/I: Denies A/VH: Speaking out loud to self could be internal stimuli. Sleep: 7.50 hours ADL's: Independent Group attendance: No group meeting held today. Were Meds taken: Yes, without hesitation. Any med S/E: None reported or noted Mental Status Exam Appearance: Young, thin man, disheveled in green unit scrubs Eye contact: Good Behavior: Cooperative, impulsive. Speech: Clear, pressured at times Mood: Im doing good. Affect: Anxious Thought process: Disorganized Thought Content: Perseverates on discharge and medications & diet. Cognition: A&O x2 to person and place Insight: Poor Judgment: Poor Interventions PRN's used: Nicotine lozenge x2. Therapeutic interventions: 1:1 assessment with therapeutic communication, provided PRN as requested, encouraged patience to stay in the hospital until seen by a provider, provided clear and simple instructions, provided direction and encouragement regarding performance of ADLs, and monitored Q15 minute safety checks. Restraints/seclusion/emergency medication: NA Justification of Continued Inpatient Treatment: Requires interruption of current crisis in a safe and therapeutic environment.
[2021-06-08 20:05] VITALS: BP 134/94
[2021-06-08] MEDS: traZODone 50mg tablet PO PRN (20:26)
--- NOTE | 2021-06-09 05:08 | NUR ---
Nursing Progress Note: Legal hold: 5250 Patient on involuntary status for GD/ DTS Report received from JOSE Yoo with use of SBAR. Why are they here: Pt. is a direct admit from [facility]. Per report pt. withdrawing from ETOH after binge drinking for over a year. Pt. reportedly drinking 1 quart of whiskey daily. Pt. 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 He is experiencing AH. Pt. placed on 5150 for GD. Pt. had acute pancreatitis but was medically cleared for transfer. Pt. has been at [facility] since 05/24/21. Assessment What has happened this shift: Patient watching TV in the community room at the beginning of shift. Pleasant and cooperative with care; compliant with medication. Nicotine patch removed and PRN Trazodone provided. Denies SI, HI, A/VH; no apparent delusions reported this shift. Patient participated in HS snack prior to bed; observed sleeping and does not appear to be having difficulty. S/I, H/I: Denies A/VH: Denies Sleep: Refer to sleep assessment ADL's: Independent Group attendance: NA Were Meds taken: Yes Any med S/E: None observed or reported Mental Status Exam Appearance: Disheveled, unkempt hair, green unit attire Eye contact: Good Behavior: Pleasant and cooperative, watching TV Speech: Clear, audible Mood: "Good" Affect: Congruent Thought process: Linear Thought Content: Meeting needs Cognition: A&O x4 Insight: Poor Judgment: Poor Interventions PRN's used: Trazodone Therapeutic interventions: 1:1 assessment with therapeutic communication, provided PRN as requested, encouraged patience to stay in the hospital until seen by a provider, provided clear and simple instructions, provided direction and encouragement regarding performance of ADLs, and monitored Q15 minute safety checks. Restraints/seclusion/emergency medication: NA Justification of Continued Inpatient Treatment: Requires interruption of current crisis in a safe and therapeutic environment.
[2021-06-09] MEDS: NICOTINE POLACRILEX 2 MG LOZENGE BC PRN ×5 (06:45→18:23)
[2021-06-09 07:47] VITALS: BP 129/98
[2021-06-09] MEDS: nicotine 21mg patch - 24 hr TD SCH (08:48)
[2021-06-09] MEDS: olanzapine 10mg tablet PO SCH ×2 (08:51→20:06)
[2021-06-09] MEDS: clonazePAM 1mg tablet PO SCH ×2 (08:52→20:06)
[2021-06-09] MEDS: folic acid 1mg tablet PO SCH (08:52)
[2021-06-09] MEDS: cyanocobalamin 500mcg tablet PO SCH (08:52)
[2021-06-09] MEDS: multivitamins, therapeutics tablet PO SCH (08:53)
[2021-06-09] MEDS: thiamine 100mg tablet PO SCH ×2 (13:04→20:06)
--- NOTE | 2021-06-09 17:49 | NUR ---
Nursing Progress Note: Legal hold: 5250 Patient on involuntary status for GD/ DTS Report received from JOSE Viera with use of SBAR. Why are they here: Pt. is a direct admit from [facility]. Per report pt. withdrawing from ETOH after binge drinking for over a year. Pt. reportedly drinking 1 quart of whiskey daily. Pt. 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 He is experiencing AH. Pt. placed on 5150 for GD. Pt. had acute pancreatitis but was medically cleared for transfer. Pt. has been at [facility] since 05/24/21. Assessment What has happened this shift: Received patient while he was lying in bed sleeping. Patient woke up at approximately 0630 and requested a Nicotine Lozenge. Patient ambulating in the hallway. Appears less anxious today. Patient ate breakfast in the dining room and sat and socialized with peers. Patient took a morning nap and did not participate in either group meeting today. Patient took Nicotine Lozenges approximately every two hours. Patient has been pleasant and cooperative throughout the day. S/I, H/I: Denies A/VH: Denies Sleep: 6.75 hours ADL's: Independent Group attendance: Patient did not attend Were Meds taken: Yes, without hesitation. Any med S/E: None observed or reported Mental Status Exam Appearance: Disheveled, unkempt hair, green unit attire Eye contact: Good Behavior: Pleasant and cooperative. Speech: Clear, audible Mood: "Good" Affect: Congruent Thought process: Linear Thought Content: Meeting needs Cognition: A&O x4 Insight: Poor Judgment: Poor Interventions PRN's used: Therapeutic interventions: 1:1 assessment with therapeutic communication, provided PRN as requested, encouraged patience to stay in the hospital until seen by a provider, provided clear and simple instructions, provided direction and encouragement regarding performance of ADLs, and monitored Q15 minute safety checks. Restraints/seclusion/emergency medication: NA Justification of Continued Inpatient Treatment: Requires interruption of current crisis in a safe and therapeutic environment.
[2021-06-09 20:00] VITALS: BP 131/91
[2021-06-09] MEDS: traZODone 50mg tablet PO PRN (23:16)
--- NOTE | 2021-06-10 02:59 | NUR ---
Nursing Progress Note: Legal hold: 5250 Patient on involuntary status for GD/ DTS Report received from JOSE Yoo with use of SBAR. Why are they here: Pt. is a direct admit from [facility]. Per report pt. withdrawing from ETOH after binge drinking for over a year. Pt. reportedly drinking 1 quart of whiskey daily. Pt. 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 He is experiencing AH. Pt. placed on 5150 for GD. Pt. had acute pancreatitis but was medically cleared for transfer. Pt. has been at [facility] since 05/24/21. Assessment What has happened this shift: Patient on the exercise bike in the group room. He was watching a movie that he was able to tell me about in a linear fashion. He denies SI/HI and AV/H. None were observed. He spent all the time before bed in that spot. He participated in snack time, then accepted HS medication, along with Trazodone to help him sleep. S/I, H/I: Denies A/VH: Denies Sleep: Refer to sleep assessment ADL's: Independent Group attendance: N/A Were Meds taken: Yes Any med S/E: None observed or reported Mental Status Exam Appearance: Disheveled, unkempt hair, green unit attire Eye contact: Good Behavior: Pleasant and cooperative, watching TV Speech: Clear, audible Mood: "Good" Affect: Congruent Thought process: Linear Thought Content: Meeting needs Cognition: A&O x4 Insight: Poor Judgment: Poor Interventions PRN's used: Trazodone Therapeutic interventions: 1:1 assessment with therapeutic communication, provided PRN as requested, encouraged patience to stay in the hospital until seen by a provider, provided clear and simple instructions, provided direction and encouragement regarding performance of ADLs, and monitored Q15 minute safety checks. Restraints/seclusion/emergency medication: NA Justification of Continued Inpatient Treatment: Requires interruption of current crisis in a safe and therapeutic environment.
[2021-06-10] MEDS: NICOTINE POLACRILEX 2 MG LOZENGE BC PRN ×7 (05:06→22:09)
[2021-06-10] MEDS: cyanocobalamin 500mcg tablet PO SCH (08:10)
[2021-06-10] MEDS: clonazePAM 1mg tablet PO SCH ×2 (08:11→20:05)
[2021-06-10] MEDS: olanzapine 10mg tablet PO SCH ×2 (08:11→20:04)
[2021-06-10] MEDS: folic acid 1mg tablet PO SCH (08:11)
[2021-06-10] MEDS: thiamine 100mg tablet PO SCH ×2 (08:11→20:05)
[2021-06-10] MEDS: nicotine 21mg patch - 24 hr TD SCH (08:11)
[2021-06-10] MEDS: multivitamins, therapeutics tablet PO SCH (08:11)
--- NOTE | 2021-06-10 11:04 | NUR ---
Sent notes (06/03-06/09) to [facility] at their request as part of LPS referral/evaluation. JOSE Johnson Addendum: 06/10/21 at 1131 by Yojana Yarbrough SS Fax # [phone]
--- NOTE | 2021-06-10 14:53 | NUR ---
Reassessment: Pt continues on Regular diet w/ double protein TID, double vegetables BID as well as shakes/smoothies TID per pt preference. Consuming mostly 100% of meals and some snacks, overall exceeding est nutrient needs at this time. LBM 06/08. No nutrition intervention implemented at this time,w will continue to monitor. Recommendations: 1. Continue regular diet w/ double protein 2. Double vegetables BIDLD, smoothie BIDBD, shake WL per pt preference 2. Continue thiamine, folic acid, and multivitamin given EtoH hx 3. Bowel care per rx 4. Weekly scaled wts Addendum: 06/10/21 at [address] Amended: Links added.
--- NOTE | 2021-06-10 17:51 | NUR ---
Nursing Progress Note: Jose Alejandro Legal hold: 5250 Patient on involuntary status for GD/ DTS Report received from JOSE Barragan with use of SBAR. Why are they here: Pt. is a direct admit from [facility]. Per report pt. withdrawing from ETOH after binge drinking for over a year. Pt. reportedly drinking 1 quart of whiskey daily. Pt. 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 He is experiencing AH. Pt. placed on 5150 for GD. Pt. had acute pancreatitis but was medically cleared for transfer. Pt. has been at [facility] since 05/24/21. Assessment What has happened this shift: Patient received walking around the unit at change of shift. Patient approached this ad copy writer endorsing that he needs his nicotine patch right away. He joined in the community room with peers for breakfast. Patient refused scheduled vital signs this morning despite education and encouragement. Patient was compliant with scheduled medication and 1:1 assessment. He denies SI/HI, AH or VH. Does not appear to be responding to internal stimuli. Patient noted to be delusional and paranoid, endorsing that he is being tortured and raped by alvaro-technology. Patient also endorsing that his family is being controlled to believe that he is mentally ill. Patient believes that his brain is being controlled by alvaro-technology and he is not actually schizophrenic. Patient was active on the unit throughout the shift. He requested PRN Nicotine lozenges approximately every two hours throughout the day. He joined in the community room for all meal and snack times today. S/I, H/I: Denies A/VH: Denies Sleep: Patient slept 6.25 hours last night per NOC shift, no naps noted on this shift. ADL's: Independent Group attendance: No Were Meds taken: Yes Any med S/E: None observed or reported Mental Status Exam Appearance: Disheveled, unkempt hair, green unit attire Eye contact: Good Behavior: Pleasant, calm, delusional Speech: Clear, audible Mood: "Doing fine Affect: Congruent Thought process: Delusional Thought Content: Meeting needs. Delusions of being tortured and raped by alvaro-technology. Cognition: A&O x4 Insight: Poor Judgment: Poor Interventions PRN's used: Nicotine lozenges Therapeutic interventions: 1:1 assessment with therapeutic communication, provided PRN as requested, encouraged patience to stay in the hospital until seen by a provider, provided clear and simple instructions, provided direction and encouragement regarding performance of ADLs, and monitored Q15 minute safety checks. Restraints/seclusion/emergency medication: N/A Justification of Continued Inpatient Treatment: Requires interruption of current crisis in a safe and therapeutic environment.
[2021-06-10] MEDS: traZODone 50mg tablet PO PRN ×2 (20:04→22:09)
--- NOTE | 2021-06-11 01:41 | NUR ---
Nursing Progress Note: Jose Alejandro Legal hold: 5250 Patient on involuntary status for GD/ DTS Report received from JOSE Barragan with use of SBAR. Why are they here: Pt. is a direct admit from [facility]. Per report pt. withdrawing from ETOH after binge drinking for over a year. Pt. reportedly drinking 1 quart of whiskey daily. Pt. 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 He is experiencing AH. Pt. placed on 5150 for GD. Pt. had acute pancreatitis but was medically cleared for transfer. Pt. has been at [facility] since 05/24/21. Assessment What has happened this shift: Patient in room asleep at shift change. Pt woke up to take vitals and to remove nicotine patch, pt refused stating he likes wearing his nicotine patch. Patient asked for nicotine lozenges every two hours. Pt took evening medication w/o complications. Patient came out of room an hour after evening meds and asked for a repeat on Trazodone which was given at that time by the nurse. Pt mostly isolated to room and slept only to come out and ask for lozenges, attend snack and get more medication.Pt went to bed shortly after. S/I, H/I: Denies A/VH: Denies Sleep:See sleep hours ADL's: Independent Group attendance: No group in the evenings Were Meds taken: Yes Any med S/E: None observed or reported Mental Status Exam Appearance: Disheveled, unkempt hair, green unit attire Eye contact: Good Behavior: Pleasant, calm, delusional Speech: Clear, audible Mood: "Doing fine Affect: Congruent Thought process: Delusional Thought Content: Meeting needs. Delusions of being tortured and raped by alvaro-technology. Cognition: A&O x4 Insight: Poor Judgment: Poor Interventions PRN's used: Nicotine lozenges X2, Trazodone 100mg X2 Therapeutic interventions: 1:1 assessment with therapeutic communication, provided PRN as requested, encouraged patience to stay in the hospital until seen by a provider, provided clear and simple instructions, provided direction and encouragement regarding performance of ADLs, and monitored Q15 minute safety checks. Restraints/seclusion/emergency medication: N/A Justification of Continued Inpatient Treatment: Requires interruption of current crisis in a safe and therapeutic environment.
[2021-06-11] MEDS: NICOTINE POLACRILEX 2 MG LOZENGE BC PRN ×5 (06:41→17:14)
[2021-06-11] MEDS: folic acid 1mg tablet PO SCH (07:20)
[2021-06-11] MEDS: olanzapine 10mg tablet PO SCH ×2 (07:21→20:12)
[2021-06-11] MEDS: multivitamins, therapeutics tablet PO SCH (07:21)
[2021-06-11] MEDS: cyanocobalamin 500mcg tablet PO SCH (07:21)
[2021-06-11] MEDS: clonazePAM 1mg tablet PO SCH ×2 (07:21→20:13)
[2021-06-11] MEDS: thiamine 100mg tablet PO SCH ×2 (07:21→20:12)
[2021-06-11] MEDS: nicotine 21mg patch - 24 hr TD SCH (07:23)
[2021-06-11 08:00] VITALS: BP 127/95
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
[2021-06-11 19:36] VITALS: BP 128/86
[2021-06-11] MEDS: traZODone 50mg tablet PO PRN (20:13)
--- NOTE | 2021-06-12 00:14 | NUR ---
Nursing Progress Note: Legal hold: 5250 Patient on involuntary status for GD/ DTS Report received from JOSE Lay with use of SBAR. Why are they here: Pt. is a direct admit from [facility]. Per report pt. withdrawing from ETOH after binge drinking for over a year. Pt. reportedly drinking 1 quart of whiskey daily. Pt. 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 He is experiencing AH. Pt. placed on 5150 for GD. Pt. had acute pancreatitis but was medically cleared for transfer. Pt. has been at [facility] since 05/24/21. Assessment What has happened this shift: Pt was in community room on exercise bike at shift change. Pt reported to not really hearing voices today. Pt denies I/S I/H. Pt was in a happty mood and wanted to find a movie to watch on the TV. The pt couldn't decide on a movie to watch and went back and forth several times with the TV remote. Pt finally settled on [employer] after a unanimous vote from peers. Pt took medications w/o complications. Pt had snack at snack time. Pt asked for a Nicotine lozenge and went to bed after his movie had completed. S/I, H/I: Denies A/VH: Denies Sleep: See sleep hours ADL's: Independent Group attendance: No group in the evenings Were Meds taken: Yes Any med S/E: None observed or reported Mental Status Exam Appearance: Disheveled, unkempt hair, green unit attire Eye contact: Good Behavior: Pleasant, calm, delusional Speech: Clear, audible Mood: excited about movie Affect: Congruent Thought process: Delusional Thought Content: Finding a movie to watch Cognition: A&O x4 Insight: Poor Judgment: Poor Interventions PRN's used: Nicotine lozenges Therapeutic interventions: 1:1 assessment with therapeutic communication, provided PRN as requested, encouraged patience to stay in the hospital until seen by a provider, provided clear and simple instructions, provided direction and encouragement regarding performance of ADLs, and monitored Q15 minute safety checks. Restraints/seclusion/emergency medication: N/A Justification of Continued Inpatient Treatment: Requires interruption of current crisis in a safe and therapeutic environment.
[2021-06-12] MEDS: NICOTINE POLACRILEX 2 MG LOZENGE BC PRN ×6 (02:19→18:52)
[2021-06-12 07:14] VITALS: BP 149/95
[2021-06-12] MEDS: clonazePAM 1mg tablet PO SCH ×2 (07:59→20:14)
[2021-06-12] MEDS: thiamine 100mg tablet PO SCH ×2 (07:59→20:14)
[2021-06-12] MEDS: multivitamins, therapeutics tablet PO SCH (07:59)
[2021-06-12] MEDS: cyanocobalamin 500mcg tablet PO SCH (08:00)
[2021-06-12] MEDS: folic acid 1mg tablet PO SCH (08:00)
[2021-06-12] MEDS: olanzapine 10mg tablet PO SCH ×2 (08:00→20:13)
[2021-06-12] MEDS: nicotine 21mg patch - 24 hr TD SCH (08:02)
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
[2021-06-12] MEDS: OLANZAPINE 5 MG TABLET PO PRN (16:44)
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
[2021-06-12 20:00] VITALS: BP 122/84
[2021-06-12 20:01] VITALS: BP 122/84
[2021-06-12] MEDS: traZODone 50mg tablet PO PRN (20:14)
[2021-06-13] MEDS: NICOTINE POLACRILEX 2 MG LOZENGE BC PRN ×9 (02:52→22:45)
[2021-06-13] MEDS: traZODone 50mg tablet PO PRN ×2 (02:55→20:42)
--- NOTE | 2021-06-13 05:08 | NUR ---
Nursing Progress Note: Legal hold: 5250 Patient on involuntary status for GD/ DTS Report received from JOSE Lay with use of SBAR. Why are they here: Pt. is a direct admit from [facility]. Per report pt. withdrawing from ETOH after binge drinking for over a year. Pt. reportedly drinking 1 quart of whiskey daily. Pt. 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 He is experiencing AH. Pt. placed on 5150 for GD. Pt. had acute pancreatitis but was medically cleared for transfer. Pt. has been at [facility] since 05/24/21. Assessment What has happened this shift: This patient was observed in the Recreation room following shift change. He was looking out the window. The patient consented to an interview. No distress noted. Patient was oriented X4, W/D, he had good color. Patient made direct eye contact. Mild anxiety noted. Patient denied H/I, S/I, or any hallucinations. Patient did not look to be responding to any internal stimuli. Patient states he hopes to go home tomorrow. Intermittently this shift patient was given PO Nicotine. He was also given Trazadone twice. The bryologist advised me the patient had requested and was given phone numbers for the [facility] the [employer], the [employer], and [employer]. Patient declined to comment why he requested those numbers. S/I, H/I: Pt denies. A/VH: Pt denies. Sleep: Will tally at 0500 hours. ADL's: Independent. Group attendance: No group on snubber. Were Meds taken: Yes, patient is medication compliant. Any med S/E: None noted or reported. Mental Status Exam Appearance: WNL. Eye contact: Good. Behavior: Mildly social, cooperative. Speech: Clear, normal rate, rhythm, and tone. Mood: Calm. Affect: Congruent. Thought process: Delusional. Thought Content: Focused on discharge, speaking to government officials and news medial. Cognition: Alert, oriented to person, place, time, not to mental health situation. Insight: Poor. Judgment: Poor. Interventions PRN's used: Frequent requests for Nicotine lozenges, Trazadone X2. Therapeutic interventions: 1:1 assessment, establishment of rapport, therapeutic conversation, active listening, medication administration/education/monitoring, behavior monitoring and intervention as needed; distraction, redirection, reality orientation, positive reinforcement, and Q 15 minute safety checks. Restraints/seclusion/emergency medication: N/A Justification of Continued Inpatient Treatment: Pt requires interruption of current crisis in a safe and therapeutic environment with medication adjustments and monitoring. There is some discussion of an imminent LPS referral.
[2021-06-13] MEDS: cyanocobalamin 500mcg tablet PO SCH (07:52)
[2021-06-13] MEDS: clonazePAM 1mg tablet PO SCH ×2 (07:52→20:42)
[2021-06-13] MEDS: nicotine 21mg patch - 24 hr TD SCH (07:52)
[2021-06-13] MEDS: olanzapine 10mg tablet PO SCH ×2 (07:52→20:42)
[2021-06-13] MEDS: multivitamins, therapeutics tablet PO SCH (07:52)
[2021-06-13] MEDS: thiamine 100mg tablet PO SCH ×2 (07:52→20:42)
[2021-06-13] MEDS: folic acid 1mg tablet PO SCH (07:52)
[2021-06-13 07:57] VITALS: BP 129/90
--- NOTE | 2021-06-13 10:25 | NUR ---
Francheska from [facility] picked up original LPS referral signed by Dr Del Toro as they did not receive the one mailed. JOSE Johnson
--- NOTE | 2021-06-13 13:59 | NUR ---
Nursing Progress Note: Legal hold: 5250 Patient on involuntary status for GD/ DTS Report received from JOSE Salazar with use of SBAR. Why are they here: Pt. is a direct admit from [facility]. Per report pt. withdrawing from ETOH after binge drinking for over a year. Pt. reportedly drinking 1 quart of whiskey daily. Pt. 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 He is experiencing AH. Pt. placed on 5150 for GD. Pt. had acute pancreatitis but was medically cleared for transfer. Pt. has been at [facility] since 05/24/21. Assessment What has happened this shift: Pt. awake at change of shift. Pt pleasant and cooperative with am assessment and medications. Pt. requested his PRN lozenge later in the morning. Pt. denies SI/HI as well as AH/VH but continued exhibit delusional thought content and to speak about neuro-technology. S/I, H/I: Denies A/VH: Denies Sleep: Patient slept 4.75 hours last night per NOC shift, napped on and off throughout the day. ADL's: Independent Group attendance: No Were Meds taken: Yes Any med S/E: None observed or reported Mental Status Exam Appearance: Disheveled, unkempt hair, green unit attire Eye contact: Good Behavior: Pleasant, calm, delusional Speech: Clear, audible Mood: "Doing fine Affect: Congruent Thought process: Delusional Thought Content: Focused on getting his word out concerning billions of dollars related to technology Cognition: A&O x4 Insight: Poor Judgment: Poor Interventions PRN's used: Nicotine lozenges Therapeutic interventions: 1:1 assessment with therapeutic communication, provided PRN as requested, encouraged patience to stay in the hospital until seen by a provider, provided clear and simple instructions, provided direction and encouragement regarding performance of ADLs, and monitored Q15 minute safety checks. Restraints/seclusion/emergency medication: N/A Justification of Continued Inpatient Treatment: Requires interruption of current crisis in a safe and therapeutic environment. Addendum: 06/13/21 at 1541 by Luc Schaffer RN around snack time, and when other pts were discharging, pt seemed to get triggered and began demanding to see Dr. Reyes, spewing delusional thoughts and demanding discharge. Pt was able to regain control with verbal limit setting and allowing to vent.
[2021-06-13 19:00] VITALS: BP 125/85
--- NOTE | 2021-06-14 01:59 | NUR ---
Nursing Progress Note: Legal hold: 5250 Patient on involuntary status for GD/ DTS Report received from JOSE Lay with use of SBAR. Why are they here: Pt. is a direct admit from [facility]. Per report pt. withdrawing from ETOH after binge drinking for over a year. Pt. reportedly drinking 1 quart of whiskey daily. Pt. 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 He is experiencing AH. Pt. placed on 5150 for GD. Pt. had acute pancreatitis but was medically cleared for transfer. Pt. has been at [facility] since 05/24/21. Assessment What has happened this shift: Patient primarily isolated to his room following shift change. Anxiety noted. Patient once again requests to leave his Nicotine patch in place. This was done. Patient requested and was given PO Nicotine and Trazadone. Patient looked to be responding to internal stimuli at times. He then retired to sleeps. S/I, H/I: Pt denies. A/VH: Pt denies. Sleep: Will tally at 0500 hours. ADL's: Independent. Group attendance: No group on night guard. Were Meds taken: Yes, patient is medication compliant. Any med S/E: None noted or reported. Mental Status Exam Appearance: WNL. Eye contact: Good. Behavior: Mildly social, cooperative. Speech: Clear, normal rate, rhythm, and tone. Mood: Calm. Affect: Congruent. Thought process: Delusional. Thought Content: Focused on discharge, speaking to government officials and news medial. Cognition: Alert, oriented to person, place, time, not to mental health situation. Insight: Poor. Judgment: Poor. Interventions PRN's used: Frequent requests for Nicotine lozenges, Trazadone X2. Therapeutic interventions: 1:1 assessment, establishment of rapport, therapeutic conversation, active listening, medication administration/education/monitoring, behavior monitoring and intervention as needed; distraction, redirection, reality orientation, positive reinforcement, and Q 15 minute safety checks. Restraints/seclusion/emergency medication: N/A Justification of Continued Inpatient Treatment: Pt requires interruption of current crisis in a safe and therapeutic environment with medication adjustments and monitoring. There is some discussion of an imminent LPS referral.
[2021-06-14] MEDS: NICOTINE POLACRILEX 2 MG LOZENGE BC PRN ×9 (03:34→23:29)
[2021-06-14 07:19] VITALS: BP 132/95
[2021-06-14] MEDS: clonazePAM 1mg tablet PO SCH ×2 (07:45→20:32)
[2021-06-14] MEDS: folic acid 1mg tablet PO SCH (07:45)
[2021-06-14] MEDS: cyanocobalamin 500mcg tablet PO SCH (07:45)
[2021-06-14] MEDS: multivitamins, therapeutics tablet PO SCH (07:45)
[2021-06-14] MEDS: olanzapine 10mg tablet PO SCH ×2 (07:45→20:32)
[2021-06-14] MEDS: thiamine 100mg tablet PO SCH ×2 (07:45→20:32)
[2021-06-14] MEDS: nicotine 21mg patch - 24 hr TD SCH (07:50)
--- NOTE | 2021-06-14 16:57 | NUR ---
Nursing Progress Note Legal hold: 5250 Client on involuntary status for GD/ DTS Report received RN with use of SBAR Why they are here: Pt. is a direct admit from [facility]. Per report pt. withdrawing from ETOH after binge drinking for over a year. Pt. reportedly drinking 1 quart of whiskey daily. Pt. 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 He is experiencing AH. Pt. placed on 5150 for GD. Pt. had acute pancreatitis but was medically cleared for transfer. Pt. has been at [facility] since 05/24/21. Assessment What happened this shift: Received Pt in bed sleeping w/o distress at the beginning of the shift. Pt woke and was cooperative with vitals and returned to bed. Pt asked for a nicotine lozenges throughout the day, every 2 hrs. Jose Alejandro took AM meds w/o issue and ate meals well. Pts hair disheveled and napped throughout the day. Pt remains guarded and isolative and spent most of day in his room. S/I, H/I: Denies A/VH: + Delusions Sleep: None noted this shift ADL's: Independent Group attendance: NA Were Meds taken: Yes Any med S/E: None reported or noted Mental Status Exam Appearance: Disheveled in scrubs Eye contact: Good Behavior: Cooperative, anxious Speech: Clear, coherent Mood: Good Affect: Constricted Thought process: Disorganized at times Thought Content: Perseverates on Nicotine Lozenges Cognition: A&O x2 to person and place Insight: Poor Judgment: Poor Interventions PRN's used: Nicotine lozenges Therapeutic interventions: 1:1 assessment with therapeutic communication, provided PRN as requested, encouraged patience to stay in the hospital until seen by a provider, provided clear and simple instructions, provided direction and encouragement regarding performance of ADLs, and monitored Q15 minute safety checks. Restraints/seclusion/emergency medication: NA Justification of Continued Inpatient Treatment: Requires interruption of current crisis in a safe and therapeutic environment.
[2021-06-14 19:00] VITALS: BP 142/95
[2021-06-14] MEDS: traZODone 50mg tablet PO PRN (20:32)
--- NOTE | 2021-06-14 22:45 | NUR ---
Nursing Progress Note Legal hold: 5250 Client on involuntary status for GD/ DTS Report received RN with use of SBAR Why they are here: Pt. is a direct admit from [facility]. Per report pt. withdrawing from ETOH after binge drinking for over a year. Pt. reportedly drinking 1 quart of whiskey daily. Pt. 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 He is experiencing AH. Pt. placed on 5150 for GD. Pt. had acute pancreatitis but was medically cleared for transfer. Pt. has been at [facility] since 05/24/21. Assessment What happened this shift: Pt was writing multiple grievance forms concerning staff and other pts. When asked about why the pt felt the need to write so many the pt stated he did not believe he should be here and that other patients were going home, he believes that other pts ailments aren't severe enough to be here either. Pt was reminded that other pts information is private and he does not need to be informed of them or diagnosing other pts. Pt got irritable and began talking about alvaro-technology. Pt upset that no one will listen to him as he needs to inform the world and him being here is a mistake. Pt then wanted to talk to Nayely [place]. It was explained to pt that he is on a hold and there is nothing we can do until a weekday with a SW. Pt came back several times upset that this nurse would not look up alvaro-technology or anything relating to it. Pt went to community room and found a movie to watch with cohorts and became calm. Pt ate snack and took evening meds w/o complications. Pt approached this nurse later and reported being sorry for earliar behavior but still insisted on this nurse looking up alvaro-technology. S/I, H/I: Denies A/VH: + Delusions Sleep: See sleep hours ADL's: Independent Group attendance: NA Were Meds taken: Yes Any med S/E: None reported or noted Mental Status Exam Appearance: Disheveled in scrubs Eye contact: Good Behavior: Cooperative, anxious Speech: Clear, coherent Mood: irritable Affect: Constricted Thought process: Disorganized at times Thought Content: Perseverates on alvrao-technology and proving it to the world Cognition: A&O x2 to person and place Insight: Poor Judgment: Poor Interventions PRN's used: Nicotine lozenges, Trazodone 100mg Therapeutic interventions: 1:1 assessment with therapeutic communication, provided PRN as requested, encouraged patience to stay in the hospital until seen by a provider, provided clear and simple instructions, provided direction and encouragement regarding performance of ADLs, and monitored Q15 minute safety checks. Restraints/seclusion/emergency medication: NA Justification of Continued Inpatient Treatment: Requires interruption of current crisis in a safe and therapeutic environment.
[2021-06-15] MEDS: NICOTINE POLACRILEX 2 MG LOZENGE BC PRN ×7 (04:52→22:06)
[2021-06-15] MEDS: OLANZAPINE 5 MG TABLET PO PRN (06:07)
--- NOTE | 2021-06-15 06:07 | NUR ---
Pt getting agitated, obsessing over alvaro-technology and proving it's real. Pt given 10mg Zyprexa.
[2021-06-15] MEDS: clonazePAM 1mg tablet PO SCH ×2 (08:13→20:19)
[2021-06-15] MEDS: folic acid 1mg tablet PO SCH (08:13)
[2021-06-15] MEDS: multivitamins, therapeutics tablet PO SCH (08:13)
[2021-06-15] MEDS: nicotine 21mg patch - 24 hr TD SCH (08:13)
[2021-06-15] MEDS: cyanocobalamin 500mcg tablet PO SCH (08:13)
[2021-06-15] MEDS: thiamine 100mg tablet PO SCH ×2 (08:13→20:19)
[2021-06-15] MEDS: olanzapine 10mg tablet PO SCH ×2 (08:13→20:18)
[2021-06-15 08:26] VITALS: BP 127/79
[2021-06-15 14:21] LABS: ALANINE AMINOTRANSFERASE 53 U/L (12-78); ALBUMIN 3.5 G/DL (3.4-5.0); ALBUMIN/GLOBULIN RATIO 1.1 (1.1-1.5); ALKALINE PHOSPHATASE 158 IU/L (46-116); ANION GAP 11 (8-16); ASPARTATE AMINO TRANSFERASE 34 U/L (10-37); BILIRUBIN,TOTAL 0.3 MG/DL (0.1-1.0); BLOOD UREA NITROGEN 10 MG/DL (7-18); BUN/CREATININE RATIO 13.3 (5.4-32.0); CALCIUM 8.5 MG/DL (8.5-10.1); CHLORIDE 104 MMOL/L (99-107); CREATININE 0.75 MG/DL (0.60-1.10); GLUCOSE 158 MG/DL (70-104); POTASSIUM 4.1 MMOL/L (3.5-5.1); SODIUM 140 MMOL/L (135-145); TOTAL PROTEIN 6.7 G/DL (6.4-8.2); eGFR > 90 ML/MIN
--- NOTE | 2021-06-15 17:28 | NUR ---
Nursing Progress Note: Jose Alejandro Legal hold: 5250 Client on involuntary status for GD/ DTS Report received from JOSE Torres with use of SBAR Why they are here: Pt. is a direct admit from [facility]. Per report pt. withdrawing from ETOH after binge drinking for over a year. Pt. reportedly drinking 1 quart of whiskey daily. Pt. 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 He is experiencing AH. Pt. placed on 5150 for GD. Pt. had acute pancreatitis but was medically cleared for transfer. Pt. has been at [facility] since 05/24/21. Assessment What happened this shift: Patient received sleeping in bed at change of shift. He was receptive to scheduled medication and 1:1 assessment. Patient joined in the community room with peers for breakfast. He denies SI/HI, AH or VH. Does not appear to be responding to internal stimuli. When asked how patient is feeling, he endorsed needing an immediate discharge and continued to reiterate delusions of being tortured and raped by neuro-technology. Patient also noted endorsing that he needs a detailed account what has been happening to him with plans to ethan the hospital for holding him captive. He was noted to be self-isolative to his room the majority of the day aside from snack and meal times. He requested PRN Nicotine lozenges approximately every two hours throughout this shift. He remains guarded and isolative to his room. S/I, H/I: Denies A/VH: Denies Sleep: Napped intermittently on this shift ADL's: Independent Group attendance: No group provided Were Meds taken: Yes Any med S/E: None reported or noted Mental Status Exam Appearance: Patient is a tall very thin male with scruffy reddish blonde hair, very disheveled. He is clean shaven. He is wearing green hospital scrubs. Eye contact: Fair Behavior: Cooperative, anxious Speech: Clear, normal rate and rhythm Mood: Irritable regarding desire to discharge Affect: Constricted Thought process: Disorganized at times, Delusional Thought Content: Perseverates on discharge and Nicotine Lozenges Cognition: A&O x3 (not to why he is here) Insight: Poor Judgment: Poor Interventions PRN's used: Nicotine lozenges Therapeutic interventions: 1:1 assessment with therapeutic communication, provided PRN as requested, encouraged patience to stay in the hospital until seen by a provider, provided clear and simple instructions, provided direction and encouragement regarding performance of ADLs, encouraged participation on the unit, and monitored Q15 minute safety checks. Restraints/seclusion/emergency medication: N/A Justification of Continued Inpatient Treatment: Patient requires interruption of current crisis in a safe and therapeutic environment. Per MIKAELA Adler, Pursuing LPS Conservatorship.
[2021-06-15 20:00] VITALS: BP 134/87
[2021-06-15] MEDS: traZODone 50mg tablet PO PRN ×2 (20:18→22:11)
--- NOTE | 2021-06-16 01:18 | NUR ---
Nursing Progress Note: Jose Alejandro Legal hold: 5250 Client on involuntary status for GD/ DTS Report received from JOSE Torres with use of SBAR Why they are here: Pt. is a direct admit from [facility]. Per report pt. withdrawing from ETOH after binge drinking for over a year. Pt. reportedly drinking 1 quart of whiskey daily. Pt. 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 He is experiencing AH. Pt. placed on 5150 for GD. Pt. had acute pancreatitis but was medically cleared for transfer. Pt. has been at [facility] since 05/24/21. Assessment What happened this shift: Patient asleep in bed at shift change. Pt woke up when questioning neighbor who was currently awake. Pt stated he felt good and he wanted to know what time it was. Pt denies A/H V/H, S/I H/I. Pt went out to community room to watch movie with cohorts. Pt ate snack at snack time in community room. Pt took evening meds w/o complications, PRN Trazodone given. Pt requested another dose Of Trazodone after movie was over, pt received second dose. Pt given PRN Nicotine lozenge every 2hours. Pt went to bed w/o complications shortly after. S/I, H/I: Denies A/VH: Denies Sleep: See sleep hours ADL's: Independent Group attendance: No group in the evening Were Meds taken: Yes Any med S/E: None reported or noted Mental Status Exam Appearance: Patient is a tall very thin male with scruffy reddish blonde hair, very disheveled. He is clean shaven. He is wearing green hospital scrubs. Eye contact: Fair Behavior: Cooperative, anxious Speech: Clear, normal rate and rhythm Mood:tired Affect: Constricted Thought process: Disorganized at times, Delusional Thought Content: Perseverates on discharge and Nicotine Lozenges Cognition: A&O x3 (not to why he is here) Insight: Poor Judgment: Poor Interventions PRN's used: Nicotine lozenges, Trazodone 100mg X2 Therapeutic interventions: 1:1 assessment with therapeutic communication, provided PRN as requested, encouraged patience to stay in the hospital until seen by a provider, provided clear and simple instructions, provided direction and encouragement regarding performance of ADLs, encouraged participation on the unit, and monitored Q15 minute safety checks. Restraints/seclusion/emergency medication: N/A Justification of Continued Inpatient Treatment: Patient requires interruption of current crisis in a safe and therapeutic environment. Per MIKAELA Adler, Pursuing LPS Conservatorship.
[2021-06-16] MEDS: NICOTINE POLACRILEX 2 MG LOZENGE BC PRN ×8 (04:19→23:50)
[2021-06-16 07:43] VITALS: BP 130/83
[2021-06-16] MEDS: cyanocobalamin 500mcg tablet PO SCH (08:09)
[2021-06-16] MEDS: thiamine 100mg tablet PO SCH ×2 (08:09→21:14)
[2021-06-16] MEDS: clonazePAM 1mg tablet PO SCH ×2 (08:09→21:14)
[2021-06-16] MEDS: olanzapine 10mg tablet PO SCH ×2 (08:09→21:14)
[2021-06-16] MEDS: multivitamins, therapeutics tablet PO SCH (08:09)
[2021-06-16] MEDS: folic acid 1mg tablet PO SCH (08:09)
[2021-06-16] MEDS: nicotine 21mg patch - 24 hr TD SCH (08:11)
--- NOTE | 2021-06-16 13:06 | NUR ---
Called Jose Alejandro's mom, Yamel (ph# [phone]), to inquire if Jose Alejandro is allowed to return to their home. She stated, "he's not welcome back until he gets the care he needs". She reported she has spoken to Jose Alejandro daily if not multiple times a day, and that yes, he has improved, but not enough to return home. She fears he would stop taking his medication and decompensate quickly. Spoke to Francheska Gonzalez, who reported they are moving forward with LPS process. She requested that we place Jose Alejandro on a [facility]. JOSE Yarbrough
--- NOTE | 2021-06-16 17:56 | NUR ---
Nursing Progress Note: Legal hold: 5250 Client on involuntary status for GD/ DTS Report received from JOSE Tolentino with use of SBAR Why they are here: Pt. is a direct admit from [facility]. Per report pt. withdrawing from ETOH after binge drinking for over a year. Pt. reportedly drinking 1 quart of whiskey daily. Pt. 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 He is experiencing AH. Pt. placed on 5150 for GD. Pt. had acute pancreatitis but was medically cleared for transfer. Pt. has been at [facility] since 05/24/21. Assessment What happened this shift: Received patient while he was standing in the hallway and waiting for a Nicotine Lozenge. Patient was smiling and said Good Morning. Patient appeared to be happy and awake and ready for breakfast. Patient returned to his room for a short period of time to rest. Patient was up and in the dining room for breakfast. Patient was asking other patients for specific items on their tray, (wanted D[employer] strawberry milkshake and oatmeal) and appeared to be watching other peers trays for what they would eat, and when they stood up from their table, he would immediately asked for any items that were still remaining on their tray. Some patients got up and handed over food items to the patient without anything asked. Patient was pleasant and thankful for any requests that were completed for him. Patient was invited to the afternoon Group Session, but did not attend. Patient slept on his bed with the exception of asking for a Nicotine Lozenge every 2 hours. Patient did not endorse any hallucinations or comments regarding the [employer] system. S/I, H/I: Denies A/VH: Denies Sleep: 6.25 hours ADL's: Independent Group attendance: No Group Meeting in the morning. Patient did not attend afternoon group meeting, even with encouragement. Were Meds taken: Yes, without hesitation. Any med S/E: None reported or noted Mental Status Exam Appearance: Patient is a tall very thin male with scruffy reddish blonde hair, very disheveled. He is clean shaven. He is wearing green hospital scrubs. Eye contact: Fair Behavior: Cooperative. Anxious at times. Speech: Clear, normal rate and rhythm Mood: Pleasant, Cooperative Affect: Constricted Thought process: Disorganized Thought Content: Perseverates on Nicotine Lozenges. Cognition: A&O x3 Insight: Poor Judgment: Poor Interventions PRN's used: Nicotine lozenges Therapeutic interventions: 1:1 assessment with therapeutic communication, provided PRN as requested, encouraged patience to stay in the hospital until seen by a provider, provided clear and simple instructions, provided direction and encouragement regarding performance of ADLs, encouraged participation on the unit, and monitored Q15 minute safety checks. Restraints/seclusion/emergency medication: N/A Justification of Continued Inpatient Treatment: Patient requires interruption of current crisis in a safe and therapeutic environment. Per MIKAELA Adler, Pursuing LPS Conservatorship.
[2021-06-16 19:00] VITALS: BP 127/77
[2021-06-16] MEDS: traZODone 50mg tablet PO PRN ×2 (21:14→21:52)
--- NOTE | 2021-06-17 05:34 | NUR ---
Nursing Progress Note: Legal hold: 5250 Client on involuntary status for GD/ DTS Report received from JOSE Lay with use of SBAR Why they are here: Pt. is a direct admit from [facility]. Per report pt. withdrawing from ETOH after binge drinking for over a year. Pt. reportedly drinking 1 quart of whiskey daily. Pt. 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 He is experiencing AH. Pt. placed on 5150 for GD. Pt. had acute pancreatitis but was medically cleared for transfer. Pt. has been at [facility] since 05/24/21. Assessment What happened this shift: Patient observed watching TV in the community room at the beginning of shift. Pleasant and cooperative with care; compliant with medication. PRN Trazodone x2 and Nicotine lozenges provided; Nicotine patch removed/discarded by race and sports book writer. Patient denies SI, HI, A/VH; no apparent delusional thought content expressed this shift. Patient participated in HS snack and walked the unit prior to bed; observed sleeping and does not appear to be having difficulty. S/I, H/I: Denies A/VH: Denies Sleep: Refer to sleep assessment ADL's: Independent Group attendance: NA Were Meds taken: Yes Any med S/E: None reported or observed Mental Status Exam Appearance: Disheveled, hair unkempt, appropriately dressed in green unit attire Eye contact: Fair Behavior: Pleasant and cooperative, self isolative, anxious Speech: Clear, normal rate and rhythm Mood: Anxious Affect: Congruent Thought process: Circumstantial Thought Content: Meeting needs Cognition: A&O x3 Insight: Poor Judgment: Poor Interventions PRN's used: Trazodone x2 and Nicotine lozenges Therapeutic interventions: 1:1 assessment with therapeutic communication, provided PRN as requested, encouraged patience to stay in the hospital until seen by a provider, provided clear and simple instructions, provided direction and encouragement regarding performance of ADLs, encouraged participation on the unit, and monitored Q15 minute safety checks. Restraints/seclusion/emergency medication: NA Justification of Continued Inpatient Treatment: Patient requires interruption of current crisis in a safe and therapeutic environment. Per MIKAELA Adler, Pursuing LPS Conservatorship.
[2021-06-17] MEDS: NICOTINE POLACRILEX 2 MG LOZENGE BC PRN ×7 (06:09→20:50)
[2021-06-17 07:34] VITALS: BP 119/86
[2021-06-17] MEDS: clonazePAM 1mg tablet PO SCH ×2 (08:05→20:12)
[2021-06-17] MEDS: cyanocobalamin 500mcg tablet PO SCH (08:06)
[2021-06-17] MEDS: multivitamins, therapeutics tablet PO SCH (08:06)
[2021-06-17] MEDS: olanzapine 10mg tablet PO SCH ×2 (08:06→20:12)
[2021-06-17] MEDS: nicotine 21mg patch - 24 hr TD SCH (08:06)
[2021-06-17] MEDS: thiamine 100mg tablet PO SCH ×2 (08:06→20:12)
[2021-06-17] MEDS: folic acid 1mg tablet PO SCH (08:06)
--- NOTE | 2021-06-17 09:29 | NUR ---
Reassessment: Pt continues eating well with 75-100% PO intake of meals while receiving double protein TID, double veggies BIDLD, smoothie BIDBD, and a shake WL. Per terrazzo journeyman pt participating in snacks. Pt exceeding estimated nutrient needs at this time. [facility] 06/14. No further nutrition intervention implemented at this time. Will continue to follow. Recommendations: 1. Continue regular diet with double protein and vegetables per diet order 2. Smoothie BIDBD and shake WL per pt preference 2. Continue routine Thiamine, Folic acid, and MVI given EtOH hx 3. Bowel care per rx 4. Weekly scaled wts Addendum: 06/17/21 at [address] Amended: Links added.
--- NOTE | 2021-06-17 17:54 | NUR ---
Nursing Progress Note: Legal hold: 5250 Client on involuntary status for GD/ DTS Report received from JOSE Tolentino with use of SBAR Why they are here: Pt. is a direct admit from [facility]. Per report pt. withdrawing from ETOH after binge drinking for over a year. Pt. reportedly drinking 1 quart of whiskey daily. Pt. 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 He is experiencing AH. Pt. placed on 5150 for GD. Pt. had acute pancreatitis but was medically cleared for transfer. Pt. has been at [facility] since 05/24/21. Assessment What happened this shift: Patient was awake at change of shift and asked for his medication soon after 0700. RN explained she had a few things to do but he would receive his meds soon. Patient was polite to RN. Patient requests his nicotine lozenges q 2 hours. Patient was on the phone with someone and RN overheard patient talking about advanced weapon systems that he needed to advise the government about the secret technology. Patient was on hold with the [facility] but had to give up the phone because it was during group. Patient was not happy but complied. Rosanne, the rn hemodialysis charge, with [facility], advised patient that he cannot call the [facility]. Patient did not appear to understand the reasoning because patient stated you should be happy I'm giving them this information so they can use it. At 1410 Patient asked RN if he was going to be released today because his 5250 was up at 1355. RN advised patient she would have charge nurse talk to him. Patient was advised of his 5270. He already knew and he was not upset. Patient is looking into requesting a writ and asked RN what he needed. RN explained that she does not know enough about them to help him but he would get Meg to speak with him because she knows all the ins and outs of writs. Patient verbalized understanding. Patient only got upset because he was not allowed to call the [facility]. S/I, H/I: Denies A/VH: Denies Sleep: a couple of short naps today ADL's: Independent Group attendance: No Were Meds taken: Yes Any med S/E: None reported or noted Mental Status Exam Appearance: Patient is a tall very thin male with messy blonde hair. Patient took a shower today. He is wearing green hospital scrubs. Eye contact: Fair Behavior: Cooperative. Anxious at times. Speech: Clear, Mood: Pleasant, Agitated Affect: Constricted Thought process: Disorganized Thought Content: Perseverates the alvaro technology weapons he has the knowledge of and needs to speak to the government about them. Cognition: A&O x3 Insight: Poor Judgment: Poor Interventions PRN's used: Nicotine lozenges Therapeutic interventions: 1:1 assessment with therapeutic communication, provided PRN as requested, encouraged patience to stay in the hospital until seen by a provider, provided clear and simple instructions, provided direction and encouragement regarding performance of ADLs, encouraged participation on the unit, and monitored Q15 minute safety checks. Restraints/seclusion/emergency medication: N/A Justification of Continued Inpatient Treatment: Patient requires interruption of current crisis in a safe and therapeutic environment. Per MIKAELA Adler, Pursuing LPS Conservatorship.
[2021-06-17 19:50] VITALS: BP 134/77
[2021-06-17] MEDS: traZODone 50mg tablet PO PRN (21:45)
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
[2021-06-18] MEDS: NICOTINE POLACRILEX 2 MG LOZENGE BC PRN ×8 (03:01→22:24)
[2021-06-18 07:30] VITALS: BP 123/84
[2021-06-18] MEDS: thiamine 100mg tablet PO SCH ×2 (07:41→20:30)
[2021-06-18] MEDS: folic acid 1mg tablet PO SCH (07:41)
[2021-06-18] MEDS: olanzapine 10mg tablet PO SCH ×2 (07:41→20:30)
[2021-06-18] MEDS: multivitamins, therapeutics tablet PO SCH (07:41)
[2021-06-18] MEDS: nicotine 21mg patch - 24 hr TD SCH (07:41)
[2021-06-18] MEDS: cyanocobalamin 500mcg tablet PO SCH (07:41)
[2021-06-18] MEDS: clonazePAM 1mg tablet PO SCH ×2 (07:41→20:30)
--- NOTE | 2021-06-18 14:49 | NUR ---
Nursing Progress Note: Legal hold: 5250 Client on involuntary status for GD/ DTS Report received from JOSE Tolentino with use of SBAR Why they are here: Pt. is a direct admit from [facility]. Per report pt. withdrawing from ETOH after binge drinking for over a year. Pt. reportedly drinking 1 quart of whiskey daily. Pt. 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 He is experiencing AH. Pt. placed on 5150 for GD. Pt. had acute pancreatitis but was medically cleared for transfer. Pt. has been at [facility] since 05/24/21. Assessment What happened this shift: Patient was awake at change of shift and walking in the cuellar. Patient was calm and polite today. Patient wanted to speak to Meg about his writ. RN explained that she spoke with Meg and she cannot help him but advised to have patient call the Patient Advocate. Patient stated okay but he still wants to explain himself to Meg, Director. Meg was gracious and sat with patient in his room for a while. Patient's back of the writ is completely filled with writings. Patient was too disorganized to get help from the Patient Advocate. Patient has not turned in the writ. Patient walking up and down the cuellar and appears to be responding to internal stimuli. Patient does ask for his nicotine lozenge every 2 hours or asks the RN when he is due for the next lozenge. S/I, H/I:Denies A/VH: Denies but appears to be responding to internal stimuli Sleep: No naps today ADL's: Independent Group attendance: No Were meds taken: Yes Any med S/E: None Mental Status Exam Appearance: Patient is a tall thin male with messy blonde hair. He is wearing green hospital scrubs. Eye contact: Fair Behavior: Cooperative. Anxious at times. Speech: Clear, Mood: Pleasant, Affect: Flat Thought process: Disorganized Thought Content: Perseverates the alvaro technology weapons he has the knowledge of and needs to speak to the government about them. Cognition: A&O x3 Insight: Poor Judgment: Poor Interventions PRN's used: Nicotine lozenges Therapeutic interventions: 1:1 assessment with therapeutic communication, provided PRN as requested, encouraged patience to stay in the hospital until seen by a provider, provided clear and simple instructions, provided direction and encouragement regarding performance of ADLs, encouraged participation on the unit, and monitored Q15 minute safety checks. Restraints/seclusion/emergency medication: N/A Justification of Continued Inpatient Treatment: Patient requires interruption of current crisis in a safe and therapeutic environment. Per MIKAELA Adler, Pursuing [facility] Conservatorship.
--- NOTE | 2021-06-18 15:52 | NUR ---
LPS REFERRAL Maricel Sim, from [facility], called to discuss LPS referral. She is going to interview him in person on Wednesday06/23/21 at 8:30 AM for LPS evaluation. She plans on serving him a 5 day notice at that time as well. JOSE Johnson
--- NOTE | 2021-06-18 16:22 | NUR ---
WRIT OF [employer] BRAYAN Petition for Writ of Tyshawn Harrison received from patient at 1500 and filed at [address] [employer] Awaiting hearing time from court. Patient notified Writ filed and County Computer Clerk/World Geography Teacher notified.
[2021-06-18 20:00] VITALS: BP 119/77
[2021-06-18] MEDS: traZODone 50mg tablet PO PRN ×2 (20:30→22:22)
[2021-06-19] MEDS: NICOTINE POLACRILEX 2 MG LOZENGE BC PRN ×7 (00:55→23:27)
--- NOTE | 2021-06-19 01:47 | NUR ---
Nursing Progress Note: Jose Alejandro Legal hold: 5270 Client on involuntary status for GD/ DTS Report received from JOSE Lay with use of SBAR Why they are here: Pt. is a direct admit from [facility]. Per report pt. withdrawing from ETOH after binge drinking for over a year. Pt. reportedly drinking 1 quart of whiskey daily. Pt. 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 He is experiencing AH. Pt. placed on 5150 for GD. Pt. had acute pancreatitis but was medically cleared for transfer. Pt. has been at [facility] since 05/24/21. Assessment What happened this shift: Pt has his writ hearing tomorrow and asks staff to print out some papers for him on cyber torture, [id number], MK ultra so that he could bring it to his hearing to help make his case. Pt states that if he could show the dog show judge proof of his experiences, he is sure everything will be okay. He perseverates on these topics and is observed responding to internal stimuli in his room. He is able to have well structured and meaningful conversation aside from the delusions. Pt is medication compliant and requests nicotine lozenges every 2 hours almost on the dot. He does not sleep well throughout the night. He appears disheveled, hair unwashed and uncombed, with a blanket wrapped around him. Pt takes HS medications without issue and utilizes PRN trazodone for sleep x2 S/I, H/I: Denies A/VH: Denies, but is seen responding to internal stimuli Sleep: See sleep hours ADL's: Independent Group attendance: No group in the evening Were Meds taken: Yes Any med S/E: None reported or noted Mental Status Exam Appearance: Patient is a tall very thin male with scruffy reddish blonde hair, very disheveled. He is clean shaven. Eye contact: Fair Behavior: Cooperative Speech: Clear, normal rate and rhythm Mood: thoughtful Affect: calm Thought process: Disorganized at times, Delusional Thought Content: Perseverates on cybertechnology Cognition: A&O x3 (not to why he is here) Insight: Poor Judgment: Poor Interventions PRN's used: Nicotine lozenges, Trazodone 100mg X2 Therapeutic interventions: 1:1 assessment with therapeutic communication, provided PRN as requested, encouraged patience to stay in the hospital until seen by a provider, provided clear and simple instructions, provided direction and encouragement regarding performance of ADLs, encouraged participation on the unit, and monitored Q15 minute safety checks. Restraints/seclusion/emergency medication: N/A Justification of Continued Inpatient Treatment: Patient requires interruption of current crisis in a safe and therapeutic environment. Per MIKAELA Adler, Pursuing LPS Conservatorship.
[2021-06-19 07:17] VITALS: BP 114/67
[2021-06-19] MEDS: thiamine 100mg tablet PO SCH ×2 (08:08→20:20)
[2021-06-19] MEDS: olanzapine 10mg tablet PO SCH ×2 (08:08→20:19)
[2021-06-19] MEDS: folic acid 1mg tablet PO SCH (08:08)
[2021-06-19] MEDS: cyanocobalamin 500mcg tablet PO SCH (08:08)
[2021-06-19] MEDS: multivitamins, therapeutics tablet PO SCH (08:08)
[2021-06-19] MEDS: clonazePAM 1mg tablet PO SCH ×2 (08:09→20:20)
[2021-06-19] MEDS: nicotine 21mg patch - 24 hr TD SCH (08:10)
--- NOTE | 2021-06-19 13:53 | NUR ---
5270 UPHELD FOR GD
--- NOTE | 2021-06-19 17:23 | NUR ---
Nursing Progress Note: Jose Alejandro Legal hold: 5270 Client on involuntary status for GD/ DTS Report received from JOSE Barragan with use of SBAR Why they are here: Pt. is a direct admit from [facility]. Per report pt. withdrawing from ETOH after binge drinking for over a year. Pt. reportedly drinking 1 quart of whiskey daily. Pt. 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 He is experiencing AH. Pt. placed on 5150 for GD. Pt. had acute pancreatitis but was medically cleared for transfer. Pt. has been at [facility] since 05/24/21. Assessment What happened this shift: Patient received sleeping in his room at change of shift. Patient awoken for scheduled medication. He endorsed to this typewriter mechanic that he slept good and heavy last night. Patient joined with peers in the community room for breakfast. Patient noted making statements to another peer on the unit about suing the hospital for negligence. He was shortly after noted making delusional statements of alvaro-technology controlling everybody. Patient was receptive to 1:1 assessment, lungs CTA. He was noted to be self-isolative to his room the majority of the day. He requested PRN Nicotine lozenges approximately every two hours throughout this shift. Patient encouraged to attend group therapy today, however, he declined. Patient denies SI/HI, AH or VH. Does not appear to be responding to internal stimuli. He participated in the community room for all meal and snack times today. S/I, H/I: Denies A/VH: Denies Sleep: Napped for approximately two hours today ADL's: Independent Group attendance: No Were meds taken: Yes Any med S/E: None Mental Status Exam Appearance: Patient is a tall thin male with messy blonde hair. He is wearing green hospital scrubs. Eye contact: Fair Behavior: Cooperative. Anxious at times. Speech: Clear, WNL Mood: Calm Affect: Flat Thought process: Disorganized Thought Content: Perseverates on alvaro-technology and suing the hospital. Cognition: A&O x3 Insight: Poor Judgment: Poor Interventions PRN's used: Nicotine lozenges Therapeutic interventions: 1:1 assessment with therapeutic communication, provided PRN as requested, encouraged participation on the unit and in group therapy, provided clear and simple instructions, provided direction and encouragement regarding performance of ADLs, and monitored Q15 minute safety checks. Restraints/seclusion/emergency medication: N/A Justification of Continued Inpatient Treatment: Patient requires interruption of current crisis in a safe and therapeutic environment. Pursuing LPS Conservatorship.
[2021-06-19 19:59] VITALS: BP 117/76
[2021-06-19] MEDS: traZODone 50mg tablet PO PRN (20:20)
--- NOTE | 2021-06-19 22:22 | NUR ---
Nursing Progress Note: Jose Alejandro Legal hold: 5270 Client on involuntary status for GD/ DTS Report received from JOSE Yoo with use of SBAR Why they are here: Pt. is a direct admit from [facility]. Per report pt. withdrawing from ETOH after binge drinking for over a year. Pt. reportedly drinking 1 quart of whiskey daily. Pt. 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 He is experiencing AH. Pt. placed on 5150 for GD. Pt. had acute pancreatitis but was medically cleared for transfer. Pt. has been at [facility] since 05/24/21. Assessment What happened this shift: Pt is seen pacing the halls with a concerned look on his face, wrapped in a blanket. He does not socialize with other patients. He isolates to his room. He tells RN that he had his 5270 hearing today and it didnt go well. But he is hopeful about his writ hearing tomorrow. He states that the neuro technologies sometimes control his bowels , there was a time awhile ago that I would stand there and not be able to urinate for 10 to 15 minutes. Pt states he wants to shower this shift. Pt takes HS medications without issue and utilizes PRN trazodone for sleep x2 S/I, H/I: Denies A/VH: Denies, but is seen responding to internal stimuli Sleep: See sleep hours ADL's: Independent Group attendance: No group in the evening Were Meds taken: Yes Any med S/E: None reported or noted Mental Status Exam Appearance: Patient is a tall very thin male with scruffy reddish blonde hair, very disheveled. He is clean shaven. Eye contact: Fair Behavior: Cooperative Speech: Clear, normal rate and rhythm Mood: thoughtful Affect: calm Thought process: Disorganized at times, Delusional Thought Content: Perseverates on cybertechnology Cognition: A&O x3 (not to why he is here) Insight: Poor Judgment: Poor Interventions PRN's used: Nicotine lozenges, Trazodone 100mg X2 Therapeutic interventions: 1:1 assessment with therapeutic communication, provided PRN as requested, encouraged patience to stay in the hospital until seen by a provider, provided clear and simple instructions, provided direction and encouragement regarding performance of ADLs, encouraged participation on the unit, and monitored Q15 minute safety checks. Restraints/seclusion/emergency medication: N/A Justification of Continued Inpatient Treatment: Patient requires interruption of current crisis in a safe and therapeutic environment. Per MIKAELA Adler, Pursuing LPS Conservatorship.
[2021-06-20] MEDS: magnesium hydroxide 30ml (MOM) UD suspension PO PRN (06:54)
[2021-06-20] MEDS: NICOTINE POLACRILEX 2 MG LOZENGE BC PRN ×5 (06:54→20:45)
[2021-06-20 07:46] VITALS: BP 113/79
[2021-06-20] MEDS: thiamine 100mg tablet PO SCH ×2 (08:21→20:44)
[2021-06-20] MEDS: folic acid 1mg tablet PO SCH (08:21)
[2021-06-20] MEDS: clonazePAM 1mg tablet PO SCH ×2 (08:21→20:45)
[2021-06-20] MEDS: multivitamins, therapeutics tablet PO SCH (08:21)
[2021-06-20] MEDS: cyanocobalamin 500mcg tablet PO SCH (08:22)
[2021-06-20] MEDS: olanzapine 10mg tablet PO SCH ×2 (08:22→20:44)
[2021-06-20] MEDS: nicotine 21mg patch - 24 hr TD SCH (08:24)
--- NOTE | 2021-06-20 08:56 | NUR ---
CANNOT RETURN TO PARENT'S HOME Jose Alejandro's mother, Yamel ([phone]# [phone]), called to inquire about the writ hearing. She stated, "the bottom line is that Jose Alejandro cannot return home. He needs treatment and professional help". Informed her communications writer will pass along this information to the treatment team. JOSE Johnson
--- NOTE | 2021-06-20 16:46 | NUR ---
Nursing Progress Note: Jose Alejandro Legal hold: 5270 Client on involuntary status for GD/ DTS Report received from Mimi Van RN with use of SBAR Why they are here: Pt. is a direct admit from [facility]. Per report pt. withdrawing from ETOH after binge drinking for over a year. Pt. reportedly drinking 1 quart of whiskey daily. Pt. 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 He is experiencing AH. Pt. placed on 5150 for GD. Pt. had acute pancreatitis but was medically cleared for transfer. Pt. has been at [facility] since 05/24/21. Assessment What happened this shift: Patient received awake and walking around the unit at shift change. He approached this magnetic tape typewriter operator asking for a PRN Nicotine lozenge. Patient participated in the group room for breakfast with peers. Patient attempted to refuse all psych medications this morning, endorsing that he does not have mental illness. He later received scheduled medications with prompting and encouragement. He was receptive to 1:1 assessment this morning. Patient noted to be anxious and disorganized throughout the morning. He was noted making delusional statements of telling them about the mind control when approached about his Writ Hearing today. Patient continues to endorse plans to ethan the hospital. Patient encouraged to take a shower before his writ hearing today, however, he declined. Patient endorsing that he likes having bed head and does not want to shower. He denies SI/HI, AH or VH. Does not appear to be responding to internal stimuli. Patient returned from his Writ Hearing and endorsed to this magnetic tape typewriter operator that it didnt go in his favor and he is looking to get out of here as fast as possible. Patient continues to present as very delusional and disorganized throughout the shift. He participated in the community room for all meal and snack times today. S/I, H/I: Denies A/VH: Denies Sleep: Napped intermittently today ADL's: Independent Group attendance: No Were meds taken: Yes Any med S/E: None Mental Status Exam Appearance: Patient is a tall thin male with disheveled hair. He is wearing green hospital scrubs. Eye contact: Fair Behavior: Cooperative. Anxious at times. Speech: Clear, normal rate, rhythm Mood: Calm Affect: Flat Thought process: Disorganized, Delusional Thought Content: Perseverates on alvaro-technology and suing the hospital. Does not believe that he has a mental illness. Cognition: A&O x3 Insight: Poor Judgment: Poor Interventions PRN's used: Nicotine lozenges Therapeutic interventions: 1:1 assessment with therapeutic communication, provided PRN as requested, encouraged participation on the unit and in group therapy, provided clear and simple instructions, provided direction and encouragement regarding performance of ADLs, and monitored Q15 minute safety checks. Restraints/seclusion/emergency medication: N/A Justification of Continued Inpatient Treatment: Patient requires interruption of current crisis in a safe and therapeutic environment. Pursuing LPS Conservatorship.
[2021-06-20 20:11] VITALS: BP 122/80
[2021-06-20] MEDS: traZODone 50mg tablet PO PRN ×2 (20:43→22:06)
--- NOTE | 2021-06-20 22:26 | NUR ---
Nursing Progress Note: Jose Alejandro Legal hold: [id number] Client on involuntary status for GD/ DTS Report received from JOSE Yoo with use of SBAR Why they are here: Pt. is a direct admit from [facility]. Per report pt. withdrawing from ETOH after binge drinking for over a year. Pt. reportedly drinking 1 quart of whiskey daily. Pt. 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 He is experiencing AH. Pt. placed on 5150 for GD. Pt. had acute pancreatitis but was medically cleared for transfer. Pt. has been at [facility] since 05/24/21. Assessment What happened this shift: Pt isolates to his room the entirety of the shift aside from coming out to ask for food/drinks. He appears sullen and depressed. He states the writ hearing "didn't go in his favor." He states that "my parents want me here for 30 days and then possibly a conservatorship, they are being manipulated." He takes his HS medications without issue and takes the prn trazodone x2 saying "I just want to be knocked out". He lays in bed and listens to headphones until he falls asleep. S/I, H/I: Denies A/VH: Denies Sleep: See sleep hours ADL's: Independent Group attendance: No group in the evening Were Meds taken: Yes Any med S/E: None reported or noted Mental Status Exam Appearance: Patient is a tall very thin male with scruffy reddish blonde hair, very disheveled. He is clean shaven. Eye contact: Fair Behavior: Cooperative Speech: Clear, normal rate and rhythm Mood: thoughtful Affect: calm Thought process: Disorganized at times, Delusional Thought Content: Perseverates on cybertechnology Cognition: A&O x3 (not to why he is here) Insight: Poor Judgment: Poor Interventions PRN's used: Nicotine lozenges, Trazodone 100mg X2 Therapeutic interventions: 1:1 assessment with therapeutic communication, provided PRN as requested, encouraged patience to stay in the hospital until seen by a provider, provided clear and simple instructions, provided direction and encouragement regarding performance of ADLs, encouraged participation on the unit, and monitored Q15 minute safety checks. Restraints/seclusion/emergency medication: N/A Justification of Continued Inpatient Treatment: Patient requires interruption of current crisis in a safe and therapeutic environment. Per MIKAELA Adler, Pursuing [facility] Conservatorship.
[2021-06-21] MEDS: NICOTINE POLACRILEX 2 MG LOZENGE BC PRN ×7 (02:11→20:43)
[2021-06-21] MEDS: olanzapine 10mg tablet PO SCH ×3 (08:00→21:00)
[2021-06-21 08:26] VITALS: BP 120/80
[2021-06-21] MEDS: clonazePAM 1mg tablet PO SCH ×3 (08:26→21:00)
[2021-06-21] MEDS: folic acid 1mg tablet PO SCH ×2 (08:26→08:54)
[2021-06-21] MEDS: thiamine 100mg tablet PO SCH ×3 (08:26→20:49)
[2021-06-21] MEDS: multivitamins, therapeutics tablet PO SCH ×2 (08:26→08:54)
[2021-06-21] MEDS: cyanocobalamin 500mcg tablet PO SCH ×2 (08:27→08:55)
[2021-06-21] MEDS: nicotine 21mg patch - 24 hr TD SCH (08:27)
--- NOTE | 2021-06-21 15:30 | NUR ---
Nursing Progress Note: Jose Alejandro Legal hold: [id number] Client on involuntary status for GD/ DTS Report received from Mimi Van RN with use of SBAR Why they are here: Pt. is a direct admit from [facility]. Per report pt. withdrawing from ETOH after binge drinking for over a year. Pt. reportedly drinking 1 quart of whiskey daily. Pt. 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 He is experiencing AH. Pt. placed on 5150 for GD. Pt. had acute pancreatitis but was medically cleared for transfer. Pt. has been at [facility] since 05/24/21. Assessment What happened this shift: Patient was asleep at change of shift and up soon after. Patient was calm and cooperative. Patient did refuse his Zyprexa this morning but took his Clonazepam and his vitamins. Patient states not that he is not taking his Zyprexa "so they will see that I'm not psychotic." Patient came to the nurses station and was reading "Neuro Technology" and information about Hype[employer] information. Patient stated that when he is psychotic it is due to this weapon that attacks his brain. RN listened to patient. Patient asks for nicotine lozenges q 2 hours, naps at times during the day. He is no problem. S/I, H/I: Denies A/VH: Denies Sleep: Napped a few times today ADL's: Independent Group attendance: No Were meds taken: Yes Any med S/E: None Mental Status Exam Appearance: Patient is a tall thin male with disheveled hair. He is wearing green hospital scrubs. Eye contact: Fair Behavior: Cooperative Speech: Clear, normal rate, rhythm Mood: Determined Affect: Flat Thought process: Delusional Thought Content: Perseverates on Neuro technology. Patient does not believe that he has a mental illness. Cognition: A&O x3 Insight: Poor Judgment: Poor Interventions PRN's used: Nicotine lozenges Therapeutic interventions: 1:1 assessment with therapeutic communication, provided PRN as requested, encouraged participation on the unit and in group therapy, provided clear and simple instructions, provided direction and encouragement regarding performance of ADLs, and monitored Q15 minute safety checks. Restraints/seclusion/emergency medication: N/A Justification of Continued Inpatient Treatment: Patient requires interruption of current crisis in a safe and therapeutic environment. Pursuing [facility] Conservatorship.
[2021-06-21 19:00] VITALS: BP 143/91
[2021-06-21] MEDS: traZODone 50mg tablet PO PRN (20:43)
--- NOTE | 2021-06-21 23:25 | NUR ---
Nursing Progress Note: Jose Alejandro Legal hold: [id number] Client on involuntary status for GD/ DTS Report received from JOSE Yoo with use of SBAR Why they are here: Pt. is a direct admit from [facility]. Per report pt. withdrawing from ETOH after binge drinking for over a year. Pt. reportedly drinking 1 quart of whiskey daily. Pt. expressing paranoid delusions that alvrao-technology is controlling his brain. He is experiencing AH. Pt. placed on 5150 for GD. Pt. had acute pancreatitis but was medically cleared for transfer. Pt. has been at [facility] since 05/24/21. Assessment What happened this shift: Pt approached this nurse and asked when med pass was. pt stated that he was not going to be taking any behavior medication or anti-anxiety medication. It was explained to pt why he was taking those medications, because he is obsessed with alvaro-technology and wont take care of himself. Pt replies that he does not believe he is psychotic so he does not want to take his medication and that it's neuro technology. Pt agrees to taking Trazodone and thiamine pill.. I explain to pt that if he wakes up and feels anxious or hyper-verbal we will consider the other medications, pt agrees. Pt took agreed upon medication at med pass. Pt asked violeta a sandwich and a nicotine lozenge. Pt went to bed w/o complications. S/I, H/I: Denies A/VH: Denies Sleep: See sleep hours ADL's: Independent Group attendance: No group in the evenings Were meds taken: Yes/kind of Any med S/E: None Mental Status Exam Appearance: Patient is a tall thin male with disheveled hair. He is wearing green hospital scrubs. Eye contact: Fair Behavior: Cooperative Speech: Clear, normal rate, rhythm Mood: Determined Affect: Flat Thought process: Delusional Thought Content: Perseverates on Neuro technology. Patient does not believe that he has a mental illness. Cognition: A&O x3 Insight: Poor Judgment: Poor Interventions PRN's used: Nicotine lozenges, Trazodone 100mg Therapeutic interventions: 1:1 assessment with therapeutic communication, provided PRN as requested, encouraged participation on the unit and in group therapy, provided clear and simple instructions, provided direction and encouragement regarding performance of ADLs, and monitored Q15 minute safety checks. Restraints/seclusion/emergency medication: N/A Justification of Continued Inpatient Treatment: Patient requires interruption of current crisis in a safe and therapeutic environment. Pursuing [facility] Conservatorship.
[2021-06-22] MEDS: NICOTINE POLACRILEX 2 MG LOZENGE BC PRN ×7 (03:00→20:54)
[2021-06-22 07:36] VITALS: BP 121/64
[2021-06-22] MEDS: olanzapine 10mg tablet PO SCH ×2 (08:00→21:00)
[2021-06-22] MEDS: clonazePAM 1mg tablet PO SCH ×2 (08:00→21:00)
[2021-06-22] MEDS: thiamine 100mg tablet PO SCH ×2 (08:44→20:52)
[2021-06-22] MEDS: multivitamins, therapeutics tablet PO SCH (08:44)
[2021-06-22] MEDS: cyanocobalamin 500mcg tablet PO SCH (08:44)
[2021-06-22] MEDS: folic acid 1mg tablet PO SCH (08:44)
[2021-06-22] MEDS: nicotine 21mg patch - 24 hr TD SCH (08:45)
--- NOTE | 2021-06-22 16:36 | NUR ---
Nursing Progress Note: Jose Alejandro Legal hold: [id number] Client on involuntary status for GD/ DTS Report received from Mimi Van RN with use of SBAR Why they are here: Pt. is a direct admit from [facility]. Per report pt. withdrawing from ETOH after binge drinking for over a year. Pt. reportedly drinking 1 quart of whiskey daily. Pt. 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 He is experiencing AH. Pt. placed on 5150 for GD. Pt. had acute pancreatitis but was medically cleared for transfer. Pt. has been at [facility] since 05/24/21. Assessment What happened this shift: Patient received sleeping in bed at change of shift. He participated for breakfast in the group room with peers. Patient refused his scheduled Olanzapine 10mg PO and scheduled Clonazepam 1mg PO this morning, endorsing that he is not mentally ill. Patient endorsed that he is not taking any more psych medication and feels better off his medication. Patient noted making delusional statements of being attacked and raped remotely by neuro-technology. Patient endorsing nonsensical statements throughout the day. Patient noted endorsing microwave radiation transmitting through his brain. He is unable to be redirected from his delusions. Patient noted to be anxious, delusional, and resistive to care. He denies SI/HI, AH or VH. Does not appear to be responding to internal stimuli. Patient was noted to have called 911 later in the day, stating that he was being illegally held against his will. Patient then handed the phone to MIKAELA Pedraza, to talk to the chief informatics officer. The police ended up hanging up the phone before talking to staff. Staff attempted to talk to patient and regarding his actions but patient continues to present with fixed delusions. Patient continues to present as very delusional and disorganized throughout the shift. He participated in the community room for all meal and snack times. S/I, H/I: Denies A/VH: Denies Sleep: Slept 5.25 hours last night per NOC shift. No naps noted on this shift. ADL's: Independent Group attendance: No group provided Were meds taken: No- refused scheduled Olanzapine and Clonazepam Any med S/E: None observed Mental Status Exam Appearance: Patient is a tall thin male with disheveled hair. He is wearing green hospital scrubs. Eye contact: Fair Behavior: Resistive to care, labile, delusional Speech: Clear, normal rate, rhythm Mood: Determined Affect: Flat Thought process: Fixed Delusions Thought Content: Perseverates on Neuro-technology. Patient does not believe that he has a mental illness. Cognition: A&O x3 (not to event) Insight: Poor Judgment: Poor Interventions PRN's used: Nicotine lozenges Therapeutic interventions: 1:1 assessment with therapeutic communication, provided PRN as requested, encouraged participation on the unit and in group therapy, provided clear and simple instructions, provided direction and encouragement regarding performance of ADLs, attempted to orient to reality, and monitored Q15 minute safety checks. Restraints/seclusion/emergency medication: N/A Justification of Continued Inpatient Treatment: Patient requires interruption of current crisis in a safe and therapeutic environment. Pursuing [facility] Conservatorship.
[2021-06-22 20:00] VITALS: BP 122/74
[2021-06-22] MEDS: traZODone 50mg tablet PO PRN ×2 (20:52→21:37)
--- NOTE | 2021-06-23 01:37 | NUR ---
Nursing Progress Note: Jose Alejandro Legal hold: [phone] Client on involuntary status for GD/ DTS Report received from Mimi Van RN with use of SBAR Why they are here: Pt. is a direct admit from [facility]. Per report pt. withdrawing from ETOH after binge drinking for over a year. Pt. reportedly drinking 1 quart of whiskey daily. Pt. 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 He is experiencing AH. Pt. placed on 5150 for GD. Pt. had acute pancreatitis but was medically cleared for transfer. Pt. has been at [facility] since 05/24/21. Assessment What happened this shift: Pt approached this nurse at shift change and asked to watch a movie. The patient picked out a movie and then apologized for snapping at me the previous night. The patient then picked out a movie and watched the movie with cohorts till snack time. Pt ate snack and then went to his room. Patient was in his room talking to his twin. Patient asked to just have thiamine pill and Trazodone 100mg. I reminded the pt if he was having a hard time sleeping he could have a repeat of the Trazodone. Pt appeared 1 hour later for Trazodone repeat then went to bed shortly after. S/I, H/I: Denies A/VH: Denies Sleep: See sleep hours ADL's: Independent Group attendance: No group in the evening Were meds taken: No- refused scheduled Olanzapine and Clonazepam Any med S/E: None observed Mental Status Exam Appearance: Patient is a tall thin male with disheveled hair. He is wearing green hospital scrubs. Eye contact: Fair Behavior: Resistive to care, labile, delusional Speech: Clear, normal rate, rhythm Mood: Determined Affect: Flat Thought process: Fixed Delusions Thought Content: Perseverates on Neuro-technology. Patient does not believe that he has a mental illness. Cognition: A&O x3 (not to event) Insight: Poor Judgment: Poor Interventions PRN's used: Nicotine lozenges, Trazodone 100mg X2 Therapeutic interventions: 1:1 assessment with therapeutic communication, provided PRN as requested, encouraged participation on the unit and in group therapy, provided clear and simple instructions, provided direction and encouragement regarding performance of ADLs, attempted to orient to reality, and monitored Q15 minute safety checks. Restraints/seclusion/emergency medication: N/A Justification of Continued Inpatient Treatment: Patient requires interruption of current crisis in a safe and therapeutic environment. Pursuing [facility] Conservatorship.
[2021-06-23] MEDS: NICOTINE POLACRILEX 2 MG LOZENGE BC PRN ×8 (03:37→20:59)
[2021-06-23] MEDS: cyanocobalamin 500mcg tablet PO SCH (07:58)
[2021-06-23] MEDS: multivitamins, therapeutics tablet PO SCH (07:58)
[2021-06-23] MEDS: folic acid 1mg tablet PO SCH (07:59)
[2021-06-23] MEDS: thiamine 100mg tablet PO SCH ×2 (07:59→20:02)
[2021-06-23] MEDS: olanzapine 10mg tablet PO SCH ×2 (08:00→20:02)
[2021-06-23] MEDS: clonazePAM 1mg tablet PO SCH ×3 (08:00→21:00)
[2021-06-23] MEDS: nicotine 21mg patch - 24 hr TD SCH (08:02)
--- NOTE | 2021-06-23 09:08 | NUR ---
Shavon Montemayor, [facility] Public Guardian, came onto the unit to interview Jose Alejandro as part of the conservatorship evaluation. Lexi Yarbrough LMFT
[2021-06-23 09:12] VITALS: BP 131/77
--- NOTE | 2021-06-23 17:25 | NUR ---
Nursing Progress Note: Jose Alejandro Legal hold: [phone] Client on involuntary status for GD/ DTS Report received from JOSE Finn with use of SBAR Why they are here: Pt. is a direct admit from [facility]. Per report pt. withdrawing from ETOH after binge drinking for over a year. Pt. reportedly drinking 1 quart of whiskey daily. Pt. 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 He is experiencing AH. Pt. placed on 5150 for GD. Pt. had acute pancreatitis but was medically cleared for transfer. Pt. has been at [facility] since 05/24/21. Assessment What happened this shift: Patient observed walking around the unit at shift change. Patient refused his scheduled Olanzapine 10mg PO and scheduled Clonazepam 1mg PO this morning. Patient endorsed that he doesnt need any psych meds. He joined in the community room with peers for breakfast. He was compliant with 1:1 assessment, lungs CTA. Patient noted to be anxious, delusional, and resistive to care. Patient had an interview with [facility] today. Shortly after the interview patient was noted perseverating on discharge, noted making phone calls to multiple people asking to come stay with them so he can leave the hospital. Patient later endorsed to this junior copywriter that he feels like he is a burden on his friends and family. He denies SI/HI, AH or VH. Does not appear to be responding to internal stimuli. Patient continues making delusional statements of neuro-technology and endorses that he does not actually have Schizophrenia. He is unable to be redirected from his delusions. Patient continues to present as very delusional and disorganized throughout the shift. He participated in the community room for all meal/snack times today. S/I, H/I: Denies A/VH: Denies. Does not appear to be responding to IS. Sleep: No naps noted on this shift. ADL's: Independent Group attendance: No Were meds taken: No- refused scheduled Olanzapine and Clonazepam Any med S/E: None observed Mental Status Exam Appearance: Patient is a medium height, thin male with disheveled hair. He is wearing green hospital scrubs. Eye contact: Fair Behavior: Resistive to care, labile, delusional Speech: Clear, normal rate, rhythm Mood: Determined Affect: Flat Thought process: Fixed Delusions Thought Content: Perseverates on Neuro-technology. Patient does not believe that he has a mental illness. Cognition: A&O x3 (not to event) Insight: Poor Judgment: Poor Interventions PRN's used: Nicotine lozenges Therapeutic interventions: 1:1 assessment with therapeutic communication, provided PRN as requested, encouraged participation on the unit and in group therapy, provided clear and simple instructions, provided direction and encouragement regarding performance of ADLs, attempted to orient to reality, and monitored Q15 minute safety checks. Restraints/seclusion/emergency medication: N/A Justification of Continued Inpatient Treatment: Patient requires interruption of current crisis in a safe and therapeutic environment. Pursuing [facility] Conservatorship.
[2021-06-23 20:26] VITALS: BP 121/79
[2021-06-23] MEDS: traZODone 50mg tablet PO PRN (20:59)
--- NOTE | 2021-06-24 00:05 | NUR ---
Nursing Progress Note: Legal hold: [id number] Client on involuntary status for GD/ DTS Report received from JOSE Yoo with use of SBAR Why they are here: Pt. is a direct admit from [facility]. Per report pt. withdrawing from ETOH after binge drinking for over a year. Pt. reportedly drinking 1 quart of whiskey daily. Pt. 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 He is experiencing AH. Pt. placed on 5150 for GD. Pt. had acute pancreatitis but was medically cleared for transfer. Pt. has been at [facility] since 05/24/21. Assessment What happened this shift: Patient was in the community room watching TV. He says he's doing fine. Patient asked me to put a movie on for him. Put the movie on for him, and he stayed and watched it. patient was there for snack time, but there was nothing he would eat. Brought him his HS meds, but he wanted confirmation about his meds. Patient did not want his anti-anxiety pills (Klonopin), but he did want his Anti-psychotic, Zyprexa and Thiamine. He did not make any delusional statements tonight, or ask for phone numbers. Patient stayed until movie ended, asked for nicotine lozenge and Trazodone, then went to bed. S/I, H/I: Denies A/VH: Denies Sleep: See sleep hours ADL's: Independent Group attendance: No group in the evening Were meds taken: yes, but refused Klonopin. Any med S/E: None observed Mental Status Exam Appearance: Patient is a tall thin male with disheveled hair. He is wearing green hospital scrubs. Eye contact: Fair Behavior: Pleasant, cooperative, guarded Speech: Clear, normal rate, rhythm Mood: Determined Affect: Flat Thought process: Fixed Delusions Thought Content: Perseverates on Neuro-technology. Patient does not believe that he has a mental illness. Cognition: A&O x3 (not to event) Insight: Poor Judgment: Poor Interventions PRN's used: Nicotine lozenges, Trazodone 100mg Therapeutic interventions: 1:1 assessment with therapeutic communication, provided PRN as requested, encouraged participation on the unit and in group therapy, provided clear and simple instructions, provided direction and encouragement regarding performance of ADLs, attempted to orient to reality, and monitored Q15 minute safety checks. Restraints/seclusion/emergency medication: N/A Justification of Continued Inpatient Treatment: Patient requires interruption of current crisis in a safe and therapeutic environment. Pursuing [facility] Conservatorship.
[2021-06-24] MEDS: thiamine 100mg tablet PO SCH ×2 (07:16→20:46)
[2021-06-24] MEDS: multivitamins, therapeutics tablet PO SCH (07:16)
[2021-06-24] MEDS: cyanocobalamin 500mcg tablet PO SCH (07:17)
[2021-06-24] MEDS: olanzapine 10mg tablet PO SCH ×2 (07:17→20:46)
[2021-06-24] MEDS: NICOTINE POLACRILEX 2 MG LOZENGE BC PRN ×7 (07:17→21:39)
[2021-06-24] MEDS: folic acid 1mg tablet PO SCH (07:17)
[2021-06-24] MEDS: nicotine 21mg patch - 24 hr TD SCH (07:18)
--- NOTE | 2021-06-24 07:22 | NUR ---
5 DAY NOTICE Served Jose Alejandro 5 day Notice for Temporary Conservatorship by [facility]. JOSE Johnson
[2021-06-24] MEDS: clonazePAM 1mg tablet PO SCH ×2 (07:23→20:46)
[2021-06-24 07:35] VITALS: BP 117/77
--- NOTE | 2021-06-24 16:36 | NUR ---
Nursing Progress Note: Jose Alejandro Legal hold: [id number] Client on involuntary status for GD/ DTS Report received from JOSE Barragan with use of SBAR Why they are here: Pt. is a direct admit from [facility]. Per report pt. withdrawing from ETOH after binge drinking for over a year. Pt. reportedly drinking 1 quart of whiskey daily. Pt. 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 He is experiencing AH. Pt. placed on 5150 for GD. Pt. had acute pancreatitis but was medically cleared for transfer. Pt. has been at [facility] since 05/24/21. Assessment What happened this shift: Patient observed walking around the unit at change of shift. He approached this mortgage or loan underwriter first thing in the morning asking for a PRN Nicotine lozenge. Patient refused his scheduled Clonazepam 1mg PO this morning. Patient was receptive to all other scheduled medications. He joined for breakfast in the community room with peers. Patient continues endorsing that he is not mentally ill and is noted making delusional statements of neuro-technology throughout the shift. He is unable to be redirected from his delusions. He continues to present as anxious, delusional, and resistive to care. Patient encouraged to go outside on the patio with peers today, however, he declined. Patient noted sitting in his room making continuous phone calls in an attempt to be discharged. Patient was compliant with 1:1 assessment, lungs CTA. Patient became upset with staff later in the shift after enforcement of unit rules. Patient noted pacing up and down the hallway, mumbling irritably under his breath. Patient making hand gestures and appearing to be responding to internal stimuli. Patient continues to deny all MH symptoms. He was noted briefly hitting the door to his room requiring redirection from staff. Patient continues to present as very delusional and disorganized throughout the shift. He participated for all meals and snack times in the group room today. S/I, H/I: Denies A/VH: Denies however appears to be responding to internal stimuli. Sleep: Pt slept 5.5 hours last night per NOC shift, no naps noted on this shift. ADL's: Independent Group attendance: No Were meds taken: No- refused scheduled Clonazepam Any med S/E: None observed Mental Status Exam Appearance: Patient is a medium height, thin male with disheveled hair. He is wearing [employer] scrubs. Eye contact: Fair Behavior: Resistive to care, labile, delusional Speech: Clear, normal rate, rhythm Mood: Determined Affect: Flat Thought process: Fixed Delusions Thought Content: Perseverates on Neuro-technology. Patient does not believe that he has a mental illness. Cognition: A&O x3 (not to event) Insight: Poor Judgment: Poor Interventions PRN's used: Nicotine lozenges Therapeutic interventions: 1:1 assessment with therapeutic communication, provided PRN as requested, encouraged participation on the unit and in group therapy, provided clear and simple instructions, provided direction and encouragement regarding performance of ADLs, attempted to orient to reality, and monitored Q15 minute safety checks. Restraints/seclusion/emergency medication: N/A Justification of Continued Inpatient Treatment: Patient requires interruption of current crisis in a safe and therapeutic environment. Pursuing [facility] Conservatorship with [facility].
[2021-06-24 19:53] VITALS: BP 106/68
[2021-06-24] MEDS: traZODone 50mg tablet PO PRN (20:46)
--- NOTE | 2021-06-25 03:12 | NUR ---
Nursing Progress Note: Jose Alejandro Legal hold: [id number] Client on involuntary status for GD/ DTS Report received from JOSE Yoo with use of SBAR Why they are here: Pt. is a direct admit from [facility]. Per report pt. withdrawing from ETOH after binge drinking for over a year. Pt. reportedly drinking 1 quart of whiskey daily. Pt. 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 He is experiencing AH. Pt. placed on 5150 for GD. Pt. had acute pancreatitis but was medically cleared for transfer. Pt. has been at [facility] since 05/24/21. Assessment What happened this shift: Patient sitting on his bed and talking on the phone at the beginning of shift. Pleasant and cooperative with care; compliant with medication. Patient hesitated with his Clonazepam but marine underwriter explained his visible shaking and he agreed. Patient appeared sad that his parents told him they agree he needs to continue MH Tx. He denies SI, HI, A/VH but appears to respond to IS periodically. Patient ate HS snack prior to bed; observed sleeping and does not appear to be having difficulty. S/I, H/I: Denies A/VH: Denies; appears to be responding to internal stimuli Sleep: Refer to sleep assessment ADL's: Independent Group attendance: NA Were meds taken: Yes Any med S/E: None observed or reported Mental Status Exam Appearance: Unkept hair, appropriately dressed in green unit attire Eye contact: Fair Behavior: Pleasant and cooperative, anxious, talking on the phone Speech: Clear, normal rate, rhythm Mood: Calm Affect: Flat Thought process: Fixed Delusions Thought Content: Meeting needs, questioning meds, appeared sad that parents what him to continue MH Tx Cognition: A&O x3 (not to event) Insight: Poor Judgment: Poor Interventions PRN's used: Nicotine lozenges Therapeutic interventions: 1:1 assessment with therapeutic communication, provided PRN as requested, encouraged participation on the unit and in group therapy, provided clear and simple instructions, provided direction and encouragement regarding performance of ADLs, attempted to orient to reality, and monitored Q15 minute safety checks. Restraints/seclusion/emergency medication: NA Justification of Continued Inpatient Treatment: Patient requires interruption of current crisis in a safe and therapeutic environment. [facility]
[2021-06-25] MEDS: NICOTINE POLACRILEX 2 MG LOZENGE BC PRN ×7 (04:09→18:21)
--- NOTE | 2021-06-25 07:19 | NUR ---
Reassessment: Pt continues eating well with mostly 100% PO intake of meals while receiving double protein TID, double veggies BIDLD, smoothie BIDBD, and a shake WL. Per medicinal plant picker pt participating in snacks. Pt exceeding estimated nutrient needs at this time. [facility] 06/23. No further nutrition intervention implemented at this time. Will continue to follow. Recommendations: 1. Continue regular diet with double protein and vegetables per diet order 2. Smoothie BIDBD and shake WL per pt preference 3. Continue routine Thiamine, Folic acid, and MVI given EtOH hx 4. Bowel care per rx 5. Weekly scaled wts Addendum: 06/25/21 at [address] Amended: Links added.
[2021-06-25] MEDS: folic acid 1mg tablet PO SCH (07:53)
[2021-06-25] MEDS: clonazePAM 1mg tablet PO SCH ×2 (07:53→20:07)
[2021-06-25] MEDS: cyanocobalamin 500mcg tablet PO SCH (07:53)
[2021-06-25] MEDS: multivitamins, therapeutics tablet PO SCH (07:53)
[2021-06-25] MEDS: olanzapine 10mg tablet PO SCH ×2 (07:53→20:08)
[2021-06-25] MEDS: thiamine 100mg tablet PO SCH ×2 (07:53→20:07)
[2021-06-25] MEDS: nicotine 21mg patch - 24 hr TD SCH (08:00)
[2021-06-25 08:20] VITALS: BP 129/89
--- NOTE | 2021-06-25 12:09 | NUR ---
Met with Jose Alejandro at his request. He asked if he could get discharged so he could live in his car. He stated he has lived in his car before. When asked what he would do for food he said he would raid his parent's pantry at both homes as there is plenty of food that they don't eat. He discussed at length how "neuro-technologies" are raping him, isolating him, and basically ruining his life. He reported this has been going on for 4 years. He reported "they" made him drop out of school. "They" have brainwashed his family and have even brainwashed the staff and doctors at [facility]. He stated he disagrees with a schizophrenia diagnosis. He reported the voices he hears are real. There were times he would turn his head and talk to people who were not present in the room. He wanted global technical writer to call his mom and tell her to "be reasonable" and let him return home. He talked about suing the hospital for holding him against his will and under false pretenses. He reported he believes he should get his MA and Doctorate basically without completing the programs because of what he has been through. 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 JOSE Johnson
--- NOTE | 2021-06-25 13:58 | NUR ---
Nursing Progress Note: Jose Alejandro Legal hold: [id number] Client on involuntary status for GD/ DTS Report received from JOSE Yoo with use of SBAR Why they are here: Pt. is a direct admit from [facility]. Per report pt. withdrawing from ETOH after binge drinking for over a year. Pt. reportedly drinking 1 quart of whiskey daily. Pt. 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 He is experiencing AH. Pt. placed on 5150 for GD. Pt. had acute pancreatitis but was medically cleared for transfer. Pt. has been at [facility] since 05/24/21. Assessment What happened this shift: Patient sitting on his bed and talking on the phone at the beginning of shift. Pleasant and cooperative with care; compliant with medication. Patient hesitated with his Clonazepam but life underwriter explained his visible shaking and he agreed. Patient appeared sad that his parents told him they agree he needs to continue MH Tx. He denies SI, HI, A/VH but appears to respond to IS periodically. Patient ate HS snack prior to bed; observed sleeping and does not appear to be having difficulty. S/I, H/I: Denies A/VH: Denies; appears to be responding to internal stimuli Sleep: Refer to sleep assessment ADL's: Independent Group attendance: NA Were meds taken: Yes Any med S/E: None observed or reported Mental Status Exam Appearance: Unkept hair, appropriately dressed in green unit attire Eye contact: Fair Behavior: Pleasant and cooperative, anxious Speech: Clear, normal rate, rhythm Mood: Calm Affect: Flat Thought process: Fixed Delusions Thought Content: Stated "I wish I would have from the alcohol" after asking if he had suicidal or homicidal thoughts. Cognition: A&O x3 (not to event) Insight: Poor Judgment: Poor Interventions PRN's used: Nicotine lozenges Therapeutic interventions: 1:1 assessment with therapeutic communication, provided PRN as requested, encouraged participation on the unit and in group therapy, provided clear and simple instructions, provided direction and encouragement regarding performance of ADLs, attempted to orient to reality, and monitored Q15 minute safety checks. Restraints/seclusion/emergency medication: NA Justification of Continued Inpatient Treatment: Patient requires interruption of current crisis in a safe and therapeutic environment. [facility]
[2021-06-25 19:41] VITALS: BP 117/75
[2021-06-25] MEDS: traZODone 50mg tablet PO PRN (20:07)
--- NOTE | 2021-06-26 03:58 | NUR ---
Nursing Progress Note: Legal hold: 5270 Client on involuntary status for GD/ DTS Report received from JOSE Davis with use of SBAR Why they are here: Pt. is a direct admit from [facility]. Per report pt. withdrawing from ETOH after binge drinking for over a year. Pt. reportedly drinking 1 quart of whiskey daily. Pt. 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 He is experiencing AH. Pt. placed on 5150 for GD. Pt. had acute pancreatitis but was medically cleared for transfer. Pt. has been at [facility] since 05/24/21. Assessment What happened this shift: Patient talking on the phone with his parents at the beginning of shift. Pleasant and cooperative with care; compliant with medication. Nicotine patch removed and lozenges provided PRN. Patient reports that he wish the alcohol would had killed him but does not have current intention. He denies HI and A/VH. He explained to commercial insurance underwriter he was making "last stitch effort to stay off conservatorship." Patient continued to express that he turns "31 in the couple weeks and I haven't even started my career yet," and how he wanted to finish school and be a teacher. 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 He mentioned being diagnosed with schizophrenia; commercial insurance underwriter asked if he believed his Dx. Patient responded, "to be completely honest, no." Assistant Professor Of Business then brought up medications after discharge and he stated, "I will definitely take them. I promised that to my parents too so that I don't have to come back to these places." Assistant Professor Of Business questioned "neuro-technology" and he reported, "I pretty much gave up on that as its landing on ears." Patient participated in HS snack prior to bed; observed sleeping and does not appear to be having difficulty. S/I, H/I: Denies A/VH: Denies Sleep: Refer to sleep assessment ADL's: Independent Group attendance: NA Were meds taken: Yes Any med S/E: None observed or reported Mental Status Exam Appearance: Unkept hair, appropriately dressed in green unit attire Eye contact: Fair Behavior: Pleasant and cooperative, anxious, talking on the phone Speech: Clear, normal rate, rhythm Mood: Calm Affect: Depressed Thought process: Linear with delusions Thought Content: Meeting needs, doesn't want conservatorship Cognition: A&O x3 (not to event) Insight: Poor Judgment: Poor Interventions PRN's used: Nicotine lozenges Therapeutic interventions: 1:1 assessment with therapeutic communication, provided PRN as requested, encouraged participation on the unit and in group therapy, provided clear and simple instructions, provided direction and encouragement regarding performance of ADLs, attempted to orient to reality, and monitored Q15 minute safety checks. Restraints/seclusion/emergency medication: NA Justification of Continued Inpatient Treatment: Patient requires interruption of current crisis in a safe and therapeutic environment. Pursuing [facility] with [facility].
[2021-06-26] MEDS: NICOTINE POLACRILEX 2 MG LOZENGE BC PRN ×7 (05:22→22:56)
[2021-06-26 07:40] VITALS: BP 129/84
[2021-06-26] MEDS: cyanocobalamin 500mcg tablet PO SCH (08:24)
[2021-06-26] MEDS: thiamine 100mg tablet PO SCH ×2 (08:24→20:03)
[2021-06-26] MEDS: multivitamins, therapeutics tablet PO SCH (08:24)
[2021-06-26] MEDS: olanzapine 10mg tablet PO SCH ×2 (08:24→20:04)
[2021-06-26] MEDS: clonazePAM 1mg tablet PO SCH ×2 (08:24→20:04)
[2021-06-26] MEDS: folic acid 1mg tablet PO SCH (08:24)
[2021-06-26] MEDS: nicotine 21mg patch - 24 hr TD SCH (08:35)
--- NOTE | 2021-06-26 12:50 | NUR ---
Emily Blount with a Zoom interview with psychologist, Serene Lindquist, in [facility] The interview lasted an hour. JOSE Johnson
--- NOTE | 2021-06-26 16:37 | NUR ---
Nursing Progress Note Legal hold: 5250 Client on involuntary status for GD/ DTS Report received RN with use of SBAR Why they are here: Pt. is a direct admit from [facility]. Per report pt. withdrawing from ETOH after binge drinking for over a year. Pt. reportedly drinking 1 quart of whiskey daily. Pt. 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 He is experiencing AH. Pt. placed on 5150 for GD. Pt. had acute pancreatitis but was medically cleared for transfer. Pt. has been at [facility] since 05/24/21. Assessment What happened this shift: Received Pt in bed sleeping w/o distress at the beginning of the shift. Pt woke and was cooperative with vitals and AM assessments. Pt took AM meds w/o issue and ate meals well. Pt spent a lot of time in bed with headphones and napped throughout the day. Pt is isolative from other Pts. yet pleasant with staff and others. He used phone several times throughout the day. Pt is delusional about alvaro tech raping me and continues to think he has no MH issue. He remains cooperative. S/I, H/I: Denies A/VH: + delusions Sleep: Short naps ADL's: Independent Group attendance: Yes Were Meds taken: Yes Any med S/E: None reported or noted Mental Status Exam Appearance: Young, thin man, disheveled in scrubs Eye contact: Good Behavior: Cooperative Speech: Clear, coherent Mood: OK Affect: Constricted Thought process: Delusional Thought Content: Perseverates on discharge Cognition: A&O x2 to person and place Insight: Poor Judgment: Poor Interventions PRN's used: Nicotine lozenges Therapeutic interventions: 1:1 assessment with therapeutic communication, provided PRN as requested, encouraged participation on the unit and in group therapy, provided clear and simple instructions, provided direction and encouragement regarding performance of ADLs, attempted to orient to reality, and monitored Q15 minute safety checks. Restraints/seclusion/emergency medication: NA Justification of Continued Inpatient Treatment: Requires interruption of current crisis in a safe and therapeutic environment. Pursuing [facility] Conservatorship with [facility].
[2021-06-26 19:50] VITALS: BP 109/63
[2021-06-26] MEDS: traZODone 50mg tablet PO PRN (20:03)
[2021-06-27] MEDS: NICOTINE POLACRILEX 2 MG LOZENGE BC PRN ×5 (01:16→18:11)
--- NOTE | 2021-06-27 04:39 | NUR ---
Nursing Progress Note: Legal hold: 5270 Client on involuntary status for GD/ DTS Report received from JOSE Lay with use of SBAR Why they are here: Pt. is a direct admit from [facility]. Per report pt. withdrawing from ETOH after binge drinking for over a year. Pt. reportedly drinking 1 quart of whiskey daily. Pt. 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 He is experiencing AH. Pt. placed on 5150 for GD. Pt. had acute pancreatitis but was medically cleared for transfer. Pt. has been at [facility] since 05/24/21. Assessment What happened this shift: Patient laying in bed awake at the beginning of shift. Pleasant and cooperative with care; compliant with medication. Nicotine patch removed and Nicotine lozenges provided PRN. Patient continues to report wishing the alcohol had killed him but denies current SI plan; denies HI, A/VH and no apparent delusions reported this shift. Patient mostly self isolating, only comes out of his room to request Nicotine lozenges. Patient did not participate in HS snack; observed sleeping with somewhat broken sleep. S/I, H/I: Denies A/VH: Denies Sleep: Refer to sleep assessment ADL's: Independent Group attendance: NA Were meds taken: Yes Any med S/E: None observed or reported Mental Status Exam Appearance: Unkept hair, appropriately dressed in green unit attire Eye contact: Fair Behavior: Pleasant and cooperative, self-isolative, depressed Speech: Clear, normal rate, rhythm Mood: Depressed Affect: Congruent Thought process: Linear Thought Content: Meeting needs, depression, wished the alcohol would had killed him Cognition: A&O x3 (not to event) Insight: Poor Judgment: Poor Interventions PRN's used: Nicotine lozenges Therapeutic interventions: 1:1 assessment with therapeutic communication, provided PRN as requested, encouraged participation on the unit and in group therapy, provided clear and simple instructions, provided direction and encouragement regarding performance of ADLs, attempted to orient to reality, and monitored Q15 minute safety checks. Restraints/seclusion/emergency medication: NA Justification of Continued Inpatient Treatment: Patient requires interruption of current crisis in a safe and therapeutic environment. Pursuing [facility] Conservatorship with [facility].
[2021-06-27 07:54] VITALS: BP 116/67
[2021-06-27] MEDS: cyanocobalamin 500mcg tablet PO SCH (08:29)
[2021-06-27] MEDS: clonazePAM 1mg tablet PO SCH ×2 (08:29→20:39)
[2021-06-27] MEDS: multivitamins, therapeutics tablet PO SCH (08:29)
[2021-06-27] MEDS: olanzapine 10mg tablet PO SCH ×2 (08:29→20:39)
[2021-06-27] MEDS: thiamine 100mg tablet PO SCH ×2 (08:29→20:39)
[2021-06-27] MEDS: folic acid 1mg tablet PO SCH (08:29)
[2021-06-27] MEDS: nicotine 21mg patch - 24 hr TD SCH (08:30)
--- NOTE | 2021-06-27 12:50 | NUR ---
Nursing Progress Note: Legal hold: 5257 Client on voluntary/involuntary status for GD/DTS Report received from nurse with use of SBAR: JOSE Salazar Why are they here: Pt. is a direct admit from [facility]. Per report pt. withdrawing from ETOH after binge drinking for over a year. Pt. reportedly drinking 1 quart of whiskey daily. Pt. 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 He is experiencing AH. Pt. placed on 5150 for GD. Assessment What has happened this shift: Received pt. sleeping in bed at the beginning of the shift, upon awakening he approached the nurse's station and requested his scheduled Nicotine Patch and a PRN Nicotine Lozenge. Pt. attended breakfast in the Group Room with direction from staff, and continues to require some direction and encouragement in order to perform his instrumental ADLs. 1:1 was completed afterwards at bedside, pt. presents as cooperative, restless, slightly irritable at times, and withdrawn. He continues to perseverate on his desire to discharge stating, "I came in for an IV and I ended up here." He denies any S/I, however continues to report he wishes the alcohol would have killed him. Pt. denies any A/V/CLEMENTE, and does not appear to be internally preoccupied. He continues to make paranoid delusional statements regarding his belief that he had previously been tortured and is still being controlled by alvaro-technology. Pt. states, "They mutilated me so my heart is in my chest now. I want the people who are doing this to me to go to senior care!" Pt. continues on in a somewhat tangental manner to talk about what appear to be fixed paranoid delusions regarding wrongs that were committed against him and in his mind continue; including physical mutilation and mind control. He reports he would like to leave today and go home to live with his parents. Pt. remained up throughout the shift making frequent telephone calls and listening to headphones at intervals. He required redirection from staff to relinquish the phone to allow others to use it. Pt. was encouraged to attend group, however he declined. He continues to make frequent requests for Nicotine Lozenges, and it was noted that he is stocking them up in his room. Pt. was provided education by staff that he cannot save lozenges, but must consume them as soon as he gets them. He reported understanding and will continue to monitor. S/I, H/I: Denies A/VH: Denies, does not appear to be internally preoccupied Sleep: Sleep hours are 6.5 ADL's: Pt. requires some encouragement and direction Group attendance: No Were meds taken: Yes Any med S/E: None Mental Status Exam Appearance: Hair and clothing are disheveled Eye contact: Good, intense at times Behavior: Cooperative, restless, slightly irritable at times, and withdrawn Speech: WNL Mood: Restless Affect: Blunted Thought process: Somewhat tangental Thought Content: Ongoing paranoid delusions and perseveration on desire to discharge Cognition: A&O X3 (not to reason here) Insight: Poor Judgment: Poor Interventions PRN's used: Nicotine Lozenges Therapeutic interventions: Maintained a safe and supportive environment, ensured contract for safety, provided clear and simple instructions, attempted to orient to reality, encouraged participation on the unit and provided needed direction and encouragement to perform ADLs, provided education regarding using Nicotine Lozenges as soon as he requests them and not saving them for later, and maintained Q 15min safety checks. Restraints/seclusion/emergency medication: N/A Justification of Continued Inpatient Treatment: Per Dr. Del Toro, pt. continues to require a safe and supportive environment and would not be able to independently perform ADLs without supervision.
[2021-06-27 19:43] VITALS: BP 122/76
[2021-06-28] MEDS: traZODone 50mg tablet PO PRN ×2 (00:10→20:08)
--- NOTE | 2021-06-28 00:43 | NUR ---
Nursing Progress Note: Jose Alejandro Legal hold: 5270 Client on involuntary status for GD/ DTS Report received from JOSE Yoo with use of SBAR Why they are here: Pt. is a direct admit from [facility]. Per report pt. withdrawing from ETOH after binge drinking for over a year. Pt. reportedly drinking 1 quart of whiskey daily. Pt. 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 He is experiencing AH. Pt. placed on 5150 for GD. Pt. had acute pancreatitis but was medically cleared for transfer. Pt. has been at [facility] since 05/24/21. Assessment What happened this shift: Pt is seen pacing the halls wrapped in a blanket at shift change. He does not socialize with other patients and mostly isolates to his room. Pt is polite and calm on 1:1 assessment, but doesn't volunteer any information aside from surface level. He appears depressed and defeated. Pt takes HS medications without issue and utilizes PRN trazodone for sleep S/I, H/I: Denies A/VH: Denies Sleep: See sleep hours ADL's: Independent Group attendance: No group in the evening Were Meds taken: Yes Any med S/E: None reported or noted Mental Status Exam Appearance: Patient is a tall very thin male with scruffy reddish blonde hair, very disheveled. Eye contact: Fair Behavior: Cooperative Speech: Clear, normal rate and rhythm Mood: thoughtful Affect: calm Thought process: TAMMIE Thought Content: will not talk about anything other than surface level Cognition: A&O x3 (not to why he is here) Insight: Poor Judgment: Poor Interventions PRN's used: Nicotine lozenges, Trazodone 100mg Therapeutic interventions: 1:1 assessment with therapeutic communication, provided PRN as requested, encouraged patience to stay in the hospital until seen by a provider, provided clear and simple instructions, provided direction and encouragement regarding performance of ADLs, encouraged participation on the unit, and monitored Q15 minute safety checks. Restraints/seclusion/emergency medication: N/A Justification of Continued Inpatient Treatment: Patient requires interruption of current crisis in a safe and therapeutic environment. Per MIKAELA Adler, Pursuing [facility] Conservatorship.
[2021-06-28 07:09] VITALS: BP 133/82
[2021-06-28] MEDS: cyanocobalamin 500mcg tablet PO SCH (08:20)
[2021-06-28] MEDS: folic acid 1mg tablet PO SCH (08:20)
[2021-06-28] MEDS: clonazePAM 1mg tablet PO SCH ×2 (08:20→20:08)
[2021-06-28] MEDS: multivitamins, therapeutics tablet PO SCH (08:20)
[2021-06-28] MEDS: olanzapine 10mg tablet PO SCH ×2 (08:20→20:08)
[2021-06-28] MEDS: nicotine 21mg patch - 24 hr TD SCH (08:21)
[2021-06-28] MEDS: NICOTINE POLACRILEX 2 MG LOZENGE BC PRN ×6 (08:21→20:21)
[2021-06-28] MEDS: thiamine 100mg tablet PO SCH ×2 (08:21→20:11)
--- NOTE | 2021-06-28 12:59 | NUR ---
Nursing Progress Note: Legal hold: 5257 Client on voluntary/involuntary status for GD/DTS Report received from nurse with use of SBAR: Mimi Van RN Why are they here: Pt. is a direct admit from [facility]. Per report pt. withdrawing from ETOH after binge drinking for over a year. Pt. reportedly drinking 1 quart of whiskey daily. Pt. 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 He is experiencing AH. Pt. placed on 5150 for GD. Assessment What has happened this shift: Received pt. sleeping in bed at the beginning of the shift, he was awoken by staff to attend breakfast in the Group Room. Afterwards, 1:1 was completed at bedside. Pt. continues to deny S/I, however reports if he is conserved he may kill himself, no plan endorsed. He continues to perseverate on his desire to discharge and go stay with his parents reporting he would like Dr. Del Toro to write him a note of medical clearance. When questioned regarding his fixed paranoid delusional thoughts regarding being controlled by neuro-technology, pt's speech becomes somewhat hyperverbal with a tangental thought process. He states, "It's the government, schools, and universities, they are all controlling me." Pt. goes on to report he cannot read or write poetry anymore, he states, "One phonetic slip and my mind starts racing." He then reports hearing occasional A/CLEMENTE which he calls "skull to brain control." However, these voices do not bother him because they have gone on for so long; pt. reports this all started four years ago and contributed to his drinking. This consumer loan underwriter attempted to re-orient pt. to reality, however he again became slightly irritable and remained fixed in his delusions reporting he plans to ethan this hospital upon discharge. Pt. napped intermittently during the shift, and made occasional telephone calls as is his routine. He remains guarded and withdrawn from others and is not observed to be interacting. Pt. does not attend group despite encouragement. S/I, H/I: Denies, however reports if he is conserved he may kill himself, no plan endorsed A/VH: Pt. reports hearing occasional A/CLEMENTE which he calls "skull to brain control." Sleep: Sleep hours are 7, and pt. naps intermittently during the shift ADL's: Pt. requires some encouragement and direction Group attendance: No Were meds taken: Yes Any med S/E: None Mental Status Exam Appearance: Hair and clothing are disheveled, however pt. did shower yesterday with encouragement Eye contact: Good, intense at times Behavior: Cooperative, restless, slightly irritable at times, and withdrawn Speech: WNL, becomes somewhat hyperverbal when discussing fixed paranoid delusions Mood: Restless Affect: Blunted Thought process: Somewhat tangental Thought Content: Ongoing paranoid delusions and perseveration on desire to discharge. Occasional A/CLEMENTE Cognition: A&O X3 (not to reason here) Insight: Poor Judgment: Poor Interventions PRN's used: Nicotine Lozenges Therapeutic interventions: Maintained a safe and supportive environment, ensured contract for safety, provided clear and simple instructions, attempted to orient to reality, encouraged participation on the unit and provided needed direction and encouragement to perform ADLs, provided education regarding using Nicotine Lozenges as soon as he requests them and not saving them for later, and maintained Q 15min safety checks. Restraints/seclusion/emergency medication: N/A Justification of Continued Inpatient Treatment: MIKAELA Guerra, pt. continues to require a safe and supportive environment and is not able to formulate a plan to meet his basic needs or safety.
[2021-06-28 19:00] VITALS: BP 120/65
--- NOTE | 2021-06-29 00:14 | NUR ---
Nursing Progress Note: Legal hold: 5270 Client on involuntary status for GD/ DTS Report received from JOSE Lay with use of SBAR Why they are here: Pt. is a direct admit from [facility]. Per report pt. withdrawing from ETOH after binge drinking for over a year. Pt. reportedly drinking 1 quart of whiskey daily. Pt. 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 He is experiencing AH. Pt. placed on 5150 for GD. Pt. had acute pancreatitis but was medically cleared for transfer. Pt. has been at [facility] since 05/24/21. Assessment What happened this shift: Patient watching TV in the community room at the beginning of shift. Pleasant and cooperative with care; compliant with medication. PRN Nicotine lozenge provided. Patient denies SI, HI, A/VH; does not appear to be responding to IS and no apparent delusions reported. He participated in HS snack and continued to watch TV prior to bed; observed sleeping and does not appear to be having difficulty. S/I, H/I: Denies A/VH: Denies Sleep: Refer to sleep assessment ADL's: Independent Group attendance: NA Were meds taken: Yes Any med S/E: None observed or reported Mental Status Exam Appearance: Unkept hair, appropriately dressed in green unit attire Eye contact: Fair Behavior: Pleasant and cooperative, self-isolative, depressed Speech: Clear, normal rate, rhythm Mood: Depressed Affect: Congruent Thought process: Linear Thought Content: Meeting needs Cognition: A&O x3 (not to event) Insight: Poor Judgment: Poor Interventions PRN's used: Nicotine lozenges Therapeutic interventions: 1:1 assessment with therapeutic communication, provided PRN as requested, encouraged participation on the unit and in group therapy, provided clear and simple instructions, provided direction and encouragement regarding performance of ADLs, attempted to orient to reality, and monitored Q15 minute safety checks. Restraints/seclusion/emergency medication: NA Justification of Continued Inpatient Treatment: Patient requires interruption of current crisis in a safe and therapeutic environment. Pursuing [facility] Conservatorship with [facility].
[2021-06-29] MEDS: NICOTINE POLACRILEX 2 MG LOZENGE BC PRN ×7 (04:43→18:42)
[2021-06-29] MEDS: nicotine 21mg patch - 24 hr TD SCH (06:52)
[2021-06-29 08:00] VITALS: BP 110/66
[2021-06-29] MEDS: clonazePAM 1mg tablet PO SCH ×2 (08:50→20:02)
[2021-06-29] MEDS: multivitamins, therapeutics tablet PO SCH (08:50)
[2021-06-29] MEDS: cyanocobalamin 500mcg tablet PO SCH (08:50)
[2021-06-29] MEDS: folic acid 1mg tablet PO SCH (08:50)
[2021-06-29] MEDS: thiamine 100mg tablet PO SCH ×2 (08:50→20:03)
[2021-06-29] MEDS: olanzapine 10mg tablet PO SCH ×2 (08:51→20:03)
--- NOTE | 2021-06-29 16:46 | NUR ---
Nursing Progress Note: Legal hold: 5270 Client on involuntary status for GD/ DTS Report received from JOSE Overton, with use of SBAR Why they are here: Pt. is a direct admit from [facility]. Per report pt. withdrawing from ETOH after binge drinking for over a year. Pt. reportedly drinking 1 quart of whiskey daily. Pt. 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 He is experiencing AH. Pt. placed on 5150 for GD. Pt. had acute pancreatitis but was medically cleared for transfer. Pt. has been at [facility] since 05/24/21. Assessment What happened this shift: Received patient while he was standing in the hallway at 0635 stating I need to talk to my Nurse. I need my Nicotine Patch and Nicotine Lozenge right now. Introduced myself to this patient and advised him I would be his Nurse today. Patient pleasant and when asked how he was, he stated Im feeling pretty good right now. Patient was administered requested medications, and 1:1 Patient Assessment and Interview was completed. Patient ate breakfast in the dining room. Did not witness asking for food items off their tray, but patients offered this patient items off their food tray. Patient also requested Extra Ensure. Patient comes out of his room for his meals in the Community Room, then self isolates in his room, with the exception of coming out long enough to ask for and receive a Nicotine Lozenge. S/I, H/I: Denies A/VH: Denies Sleep: 6.75 hours. ADL's: Independent Group attendance: No Group Meetings Held on Weekends. Were meds taken: Yes, without hesitation. Any med S/E: None observed or reported Mental Status Exam Appearance: Unkempt hair, red in color, dressed appropriately in green scrub attire Eye contact: Fair Behavior: Pleasant, cooperative and self isolates most of the day. Speech: Clear, normal rate, rhythm Mood: Im feeling pretty good right now. Affect: Congruent Thought process: Linear Thought Content: Meeting needs Cognition: A&O x3 Insight: Poor Judgment: Poor Interventions PRN's used: Nicotine lozenges Therapeutic interventions: 1:1 assessment with therapeutic communication, provided PRN as requested, encouraged participation on the unit and in group therapy, provided clear and simple instructions, provided direction and encouragement regarding performance of ADLs, attempted to orient to reality, and monitored Q15 minute safety checks. Restraints/seclusion/emergency medication: NA Justification of Continued Inpatient Treatment: Patient requires interruption of current crisis in a safe and therapeutic environment. Pursuing [facility] Conservatorship with [facility].
[2021-06-29 19:44] VITALS: BP 103/55
[2021-06-29] MEDS: traZODone 50mg tablet PO PRN (20:03)
--- NOTE | 2021-06-29 21:22 | NUR ---
pt states he would like to keep his nicotine patch on
--- NOTE | 2021-06-29 21:58 | NUR ---
Nursing Progress Note: Legal hold: 5270 Client on involuntary status for GD/ DTS Report received from JOSE Lay, with use of SBAR Why they are here: Pt. is a direct admit from [facility]. Per report pt. withdrawing from ETOH after binge drinking for over a year. Pt. reportedly drinking 1 quart of whiskey daily. Pt. 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 He is experiencing AH. Pt. placed on 5150 for GD. Pt. had acute pancreatitis but was medically cleared for transfer. Pt. has been at [facility] since 05/24/21. Assessment What happened this shift: Pt isolating in his room at change of shift. Pt appears disheveled and offered pt a shower and he states he only uses coconut oil on his hair to clean his hair and declined to shower. Pt comes out of his room only to request a nicotine lozenge and returns to his room stating he was tired and wants to go to bed early. Pt declined to have an evening snack, states he is feeling to tired to do the exercise bike lately. Pt took HS meds and went to bed. S/I, H/I: Denies A/VH: Denies Sleep: see sleep hours ADL's: Independent Group attendance: no evening groups Were meds taken: Yes, without hesitation. Any med S/E: None observed or reported Mental Status Exam Appearance: disheveled, unkempt Eye contact: good Behavior: Pleasant, cooperative and self isolates most of the day. Speech: Clear, normal rate, rhythm Mood: states he feels good but appears depressed Affect: constricted, incongruent Thought process: Linear Thought Content: Meeting needs Cognition: A&O x3 Insight: Poor Judgment: Poor Interventions PRN's used: Nicotine lozenges Therapeutic interventions: 1:1 assessment with therapeutic communication, provided PRN as requested, encouraged participation on the unit and in group therapy, provided clear and simple instructions, provided direction and encouragement regarding performance of ADLs, attempted to orient to reality, and monitored Q15 minute safety checks. Restraints/seclusion/emergency medication: NA Justification of Continued Inpatient Treatment: Patient requires interruption of current crisis in a safe and therapeutic environment. [facility].
[2021-06-30] MEDS: NICOTINE POLACRILEX 2 MG LOZENGE BC PRN ×5 (05:41→17:26)
[2021-06-30] MEDS: folic acid 1mg tablet PO SCH (07:48)
[2021-06-30] MEDS: clonazePAM 1mg tablet PO SCH ×2 (07:48→20:05)
[2021-06-30] MEDS: multivitamins, therapeutics tablet PO SCH (07:49)
[2021-06-30] MEDS: cyanocobalamin 500mcg tablet PO SCH (07:49)
[2021-06-30] MEDS: olanzapine 10mg tablet PO SCH ×2 (07:49→20:05)
[2021-06-30] MEDS: thiamine 100mg tablet PO SCH ×2 (07:49→20:05)
[2021-06-30] MEDS: nicotine 21mg patch - 24 hr TD SCH (08:00)
[2021-06-30 08:30] VITALS: BP 112/67
--- NOTE | 2021-06-30 13:52 | NUR ---
Sent updated notes to Maricel Montemayor at [facility]. JOSE Johnson
[2021-06-30] MEDS ORDERED: LORazepam 1 MG tablet PO ONE (14:55)
--- NOTE | 2021-06-30 17:14 | NUR ---
Nursing Progress Note: Legal hold: 5270 Client on involuntary status for GD/ DTS Report received from JOSE Tolentino, with use of SBAR Why they are here: Pt. is a direct admit from [facility]. Per report pt. withdrawing from ETOH after binge drinking for over a year. Pt. reportedly drinking 1 quart of whiskey daily. Pt. 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 He is experiencing AH. Pt. placed on 5150 for GD. Pt. had acute pancreatitis but was medically cleared for transfer. Pt. has been at [facility] since 05/24/21. Assessment What happened this shift: Received patient while he was standing in the cuellar and waiting for breakfast. Patient immediately stated I have court today and I know I will be discharged after that. Per patient They are trying to pursue a LPS Conservatorship with me. Informed patient that Ultrasound Department called and stated he was having a ultrasound about 1230 pm. Patient stated My problem is my heart is now down in my abdomen, and that is why they have to check it out today. Informed patient they would complete the ultrasound before lunch, then he could eat his tray. Patient states Ill wait in here. At approximately 1230, patient went to his room as Ultrasound had arrived on the Unit to complete his exam. At approximately 1330, patient was observed out in the hallway and banging on the door of the Conference Room with both hands, and yelling profanity and bad words about a Provider here at [facility]. Patient quit banging on the door and turned around to inform that he would like to speak with Dr. Del Toro immediately. Informed patient that Dr. Del Toro was no longer in the Department. Offered patient Zyprexa now, and patient refused the Zyprexa. Patient kept on yelling and then turned and informed me I am not a loser like the rest of these guys and I can calm myself down now. See, I was able to do it quickly. Patient received a Nicotine Lozenge and returned to his room. Patient then came out of his room for a brief period, and refused the Ativan po now order Dr. Del Toro had given to Rosanne. Patient is now resting on his bed and states he will be in his room if we no longer need him for anything. S/I, H/I: Denies A/VH: Denies Sleep: 8.0 hours. ADL's: Independent Group attendance: No Group Meetings Held Today. Were meds taken: Yes, without hesitation. Any med S/E: None observed or reported Mental Status Exam Appearance: Unkempt hair, red in color, dressed appropriately in green scrub attire Eye contact: Fair Behavior: Pleasant, cooperative and self isolates most of the day. Speech: Clear, normal rate, rhythm Mood: Eager & Anger/Frustration x1 Affect: Blunted Thought process: Meeting own needs Thought Content: Meeting own needs Cognition: A&O x3 Insight: Poor Judgment: Poor Interventions PRN's used: Nicotine lozenges Therapeutic interventions: 1:1 assessment with therapeutic communication, provided PRN as requested, encouraged participation on the unit and in group therapy, provided clear and simple instructions, provided direction and encouragement regarding performance of ADLs, attempted to orient to reality, and monitored Q15 minute safety checks. Restraints/seclusion/emergency medication: NA Justification of Continued Inpatient Treatment: Patient requires interruption of current crisis in a safe and therapeutic environment. Pursuing [facility] Conservatorship with [facility].
[2021-06-30 19:37] VITALS: BP 110/62
[2021-06-30] MEDS: traZODone 50mg tablet PO PRN (20:06)
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
[2021-07-01] MEDS: NICOTINE POLACRILEX 2 MG LOZENGE BC PRN ×7 (01:00→20:24)
[2021-07-01 07:55] VITALS: BP 106/72
[2021-07-01] MEDS: multivitamins, therapeutics tablet PO SCH (08:10)
[2021-07-01] MEDS: olanzapine 10mg tablet PO SCH ×2 (08:10→20:24)
[2021-07-01] MEDS: clonazePAM 1mg tablet PO SCH ×2 (08:10→20:24)
[2021-07-01] MEDS: thiamine 100mg tablet PO SCH ×2 (08:10→20:24)
[2021-07-01] MEDS: folic acid 1mg tablet PO SCH (08:10)
[2021-07-01] MEDS: cyanocobalamin 500mcg tablet PO SCH (08:10)
[2021-07-01] MEDS: nicotine 21mg patch - 24 hr TD SCH (08:11)
--- NOTE | 2021-07-01 15:43 | NUR ---
Nursing Progress Note: Legal hold: 5270 Client on involuntary status for GD/ DTS Report received from JOSE Barragan, with use of SBAR Why they are here: Pt. is a direct admit from [facility]. Per report pt. withdrawing from ETOH after binge drinking for over a year. Pt. reportedly drinking 1 quart of whiskey daily. Pt. 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 He is experiencing AH. Pt. placed on 5150 for GD. Pt. had acute pancreatitis but was medically cleared for transfer. Pt. has been at [facility] since 05/24/21. Assessment What happened this shift: Patient was asleep at change of shift and up for breakfast in his room (due to a Covid positive patient on the unit. Patient took his medication and RN showed him each one. He initially refused the Clonazepam but eventually took the med. Patient was obviously upset and saying "I don't have a mental illness and I shouldn't be here and my mother isn't helping." RN just listened. Patient has poor insight. Patient denies SI/HI. Patient denies hearing voices though at times it appears he is responding to internal stimuli. Patient stays in his room most of the day with on occasional sit down in the Community Room. No outbursts today. S/I, H/I: Denies A/VH: Denies Sleep: Several naps during the day. ADL's: Independent Group attendance: No Groups today due to Covid on the unit Were meds taken: Yes Any med S/E: None observed or reported Mental Status Exam Appearance: Disheveled hair wearing green [facility] scrubs Eye contact: Fair Behavior: Pleasant, cooperative and self isolates most of the day. Speech: Clear, normal rate, rhythm Mood: Depressed, possibly underlying anger Affect: Flat Thought process: Linear but no insight Thought Content: Getting out of Conservatorship Cognition: A&O x3 Insight: Poor Judgment: Poor Interventions PRN's used: Nicotine lozenges Therapeutic interventions: 1:1 assessment with therapeutic communication, provided PRN as requested, encouraged participation on the unit and in group therapy, provided clear and simple instructions, provided direction and encouragement regarding performance of ADLs, attempted to orient to reality, and monitored Q15 minute safety checks. Restraints/seclusion/emergency medication: NA Justification of Continued Inpatient Treatment: Patient requires interruption of current crisis in a safe and therapeutic environment. Pursuing LPS Conservatorship with [facility].
[2021-07-01 20:02] VITALS: BP 100/61
[2021-07-01] MEDS: traZODone 50mg tablet PO PRN (20:24)
--- NOTE | 2021-07-02 00:15 | NUR ---
Nursing Progress Note: Legal hold: 5270 Client on involuntary status for GD/ DTS Report received from JOSE Barragan, with use of SBAR Why they are here: Pt. is a direct admit from [facility]. Per report pt. withdrawing from ETOH after binge drinking for over a year. Pt. reportedly drinking 1 quart of whiskey daily. Pt. 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 He is experiencing AH. Pt. placed on 5150 for GD. Pt. had acute pancreatitis but was medically cleared for transfer. Pt. has been at [facility] since 05/24/21. Assessment What happened this shift: Pt is sleeping in his room at change of shift. Pt states he just wants to "sleep away the time that I'm stuck here." Pt states he just wants to and wishes he would have drank himself to or shot himself. Pt states he feels "tormented constantly." Pt states his mother told him to come to the ER to get an IV and he regrets doing so. Pt speaks delusionally of the "alvaro-technology" controlling him. While conversing with patient he stops and conversates with "room 4" saying "just kill me then please! Why dont you just do it yourself?" Pt then explains to me that he wasnt talking to me but "the government." Pt states he can't blame his mother for suggesting he come here because he believes she is also "controlled by the government." Pt asks if it is conceivable if he could just stay in bed and because he is hopeful for that. Pt acknowledges he is feeling very depressed and wants to go home. He is not showering and doesnt want a snack tonight. Pt was encouraged to make small attempts to care for himself, take walks out of his room, shower, attend groups for short periods of time if he cant stay for the duration, or spend some time out of his room watching tv. Pt took HS meds and states he will attempt to shower in the morning because he only wants to sleep. S/I, H/I: Passive S/I, pt has no plan, but wishes he was able to drink himself to , and hoping he can in his sleep. A/VH: Denies Sleep: see sleep hours ADL's: Independent Group attendance: No evening groups Were meds taken: Yes Any med S/E: pt is fatigued Mental Status Exam Appearance: Disheveled, malodorous, greasy hair, wearing green [facility] scrubs Eye contact: good Behavior: self isolating Speech: Clear, normal rate, rhythm Mood: Despondent Affect: congruent Thought process: Linear but no insight Thought Content: hallucinations, delusions, wants to go home and not be conserved Cognition: A&O x3 Insight: Poor Judgment: Poor Interventions PRN's used: Nicotine lozenges, trazodone Therapeutic interventions: 1:1 assessment with therapeutic communication, provided PRN as requested, encouraged participation on the unit and in group therapy, provided clear and simple instructions, provided direction and encouragement regarding performance of ADLs, attempted to orient to reality, and monitored Q15 minute safety checks. Restraints/seclusion/emergency medication: NA Justification of Continued Inpatient Treatment: Patient requires interruption of current crisis in a safe and therapeutic environment. Pursuing [facility] Conservatorship with [facility]. Addendum: 07/02/21 at 0536 by Meredith Guadalupe RN pt awake early asking for nicotine lozenge, encouraged patient to shower since he is awake early. Pt agreed, requested to have linens changed and to shave. Pt was supplied w/clean linens and assisted w shaving by ARNEL Song
[2021-07-02] MEDS: NICOTINE POLACRILEX 2 MG LOZENGE BC PRN ×6 (01:59→20:30)
[2021-07-02 08:00] VITALS: BP 117/73
[2021-07-02] MEDS: olanzapine 10mg tablet PO SCH ×2 (08:27→20:30)
[2021-07-02] MEDS: cyanocobalamin 500mcg tablet PO SCH (08:27)
[2021-07-02] MEDS: thiamine 100mg tablet PO SCH ×2 (08:27→20:30)
[2021-07-02] MEDS: clonazePAM 1mg tablet PO SCH ×2 (08:28→20:30)
[2021-07-02] MEDS: multivitamins, therapeutics tablet PO SCH (08:28)
[2021-07-02] MEDS: nicotine 21mg patch - 24 hr TD SCH (08:28)
[2021-07-02] MEDS: folic acid 1mg tablet PO SCH (08:28)
--- NOTE | 2021-07-02 15:28 | NUR ---
Nursing Progress Note: Legal hold: 5270 Client on involuntary status for GD/ DTS Report received from SHARIF Barragan, with use of SBAR Why they are here: Pt. is a direct admit from [facility]. Per report pt. withdrawing from ETOH after binge drinking for over a year. Pt. reportedly drinking 1 quart of whiskey daily. Pt. 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 He is experiencing AH. Pt. placed on 5150 for GD. Pt. had acute pancreatitis but was medically cleared for transfer. Pt. has been at [facility] since 05/24/21. Assessment What happened this shift: Patient was asleep at change of shift and up for breakfast in his room (due to a Covid positive patient on the unit. Patient took his medication and RN showed him each one. Patient appears very depressed. Patient again talking about how he doesn't belong here and his mother won't let him go home. RN stated, Last time you went home you stopped taking your medication and then you binge drank. And drank for a long time. So this is why your parents do not trust that you will or can take care of yourself." Patient responded over and over "This is an incorrect narrative, this is an incorrect narrative....." RN left the room. Patient has very poor insight AEB the previous conversation. Patient stayed in his room most of the day. Patient refused snack but came out for his q 2 hour nicotine lozenge. Patient was calm and depressed. S/I, H/I: Denies A/VH: Denies Sleep: Several naps during the day. ADL's: Independent Group attendance: No Groups today due to Covid on the unit Were meds taken: Yes Any med S/E: None observed or reported Mental Status Exam Appearance: Disheveled but clean hair wearing green [facility] scrubs Eye contact: Fair Behavior: Quiet and self isolates most of the day. Speech: Clear, normal rate, rhythm Mood: Depressed Affect: Flat Thought process: Linear but no insight Thought Content: Getting out of Conservatorship Cognition: A&O x3 Insight: Poor Judgment: Poor Interventions PRN's used: Nicotine lozenges Therapeutic interventions: 1:1 assessment with therapeutic communication, provided PRN as requested, encouraged participation on the unit and in group therapy, provided clear and simple instructions, provided direction and encouragement regarding performance of ADLs, attempted to orient to reality, and monitored Q15 minute safety checks. Restraints/seclusion/emergency medication: NA Justification of Continued Inpatient Treatment: Patient requires interruption of current crisis in a safe and therapeutic environment. Pursuing [facility] Conservatorship with [facility].
[2021-07-02 19:00] VITALS: BP 106/67
[2021-07-02] MEDS: traZODone 50mg tablet PO PRN (20:31)
--- NOTE | 2021-07-03 01:42 | NUR ---
Nursing Progress Note: Legal hold: 5270 Client on involuntary status for GD/ DTS Report received from SHARIF Yoo, with use of SBAR Why they are here: Pt. is a direct admit from [facility]. Per report pt. withdrawing from ETOH after binge drinking for over a year. Pt. reportedly drinking 1 quart of whiskey daily. Pt. 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 He is experiencing AH. Pt. placed on 5150 for GD. Pt. had acute pancreatitis but was medically cleared for transfer. Pt. has been at [facility] since 05/24/21. Assessment What happened this shift: Patient laying in bed awake and listening to music at the beginning of shift. Pleasant and cooperative with care; compliant with medication. He denies SI, HI, A/VH; does not appear to be responding to IS and no apparent delusions reported this shift. Patient received phone call from his dad that appeared to go well. He did not participate in HS snack this shift and remained in his room except to request Nicotine lozenge and put phone away. He is observed sleeping and does not appear to be having difficulty. S/I, H/I: Denies A/VH: Denies Sleep: Refer to sleep assessment ADL's: Independent Group attendance: NA Were meds taken: Yes Any med S/E: None observed or reported Mental Status Exam Appearance: Disheveled hair, appropriately dressed in green unit attire Eye contact: Fair Behavior: Pleasant and cooperative, self isolative Speech: Clear, normal rate, rhythm Mood: Depressed Affect: Flat Thought process: Linear but no insight Thought Content: Getting out of Conservatorship, meeting needs Cognition: A&O x3 Insight: Poor Judgment: Poor Interventions PRN's used: Nicotine lozenges Therapeutic interventions: 1:1 assessment with therapeutic communication, provided PRN as requested, encouraged participation on the unit and in group therapy, provided clear and simple instructions, provided direction and encouragement regarding performance of ADLs, attempted to orient to reality, and monitored Q15 minute safety checks. Restraints/seclusion/emergency medication: NA Justification of Continued Inpatient Treatment: Patient requires interruption of current crisis in a safe and therapeutic environment. Pursuing [facility] with [facility].
[2021-07-03] MEDS: NICOTINE POLACRILEX 2 MG LOZENGE BC PRN ×8 (02:23→20:13)
--- NOTE | 2021-07-03 07:12 | NUR ---
Reassessment: Pt continues eating well with mostly 100% PO intake of meals while receiving double protein TID, double veggies BIDLD, smoothie BIDBD, and a shake WL. Per admitting supervisor pt participating in snacks. Pt exceeding estimated nutrient needs at this time. LBM 07/02. No further nutrition intervention implemented at this time. Will continue to follow. Recommendations: 1. Continue regular diet with double protein and vegetables per diet order 2. Smoothie BIDBD and shake WL per pt preference 3. Continue routine Thiamine, Folic acid, and MVI given EtOH hx 4. Bowel care per rx 5. Weekly scaled wts Addendum: 07/03/21 at [address] Amended: Links added.
[2021-07-03 07:35] VITALS: BP 122/70
[2021-07-03] MEDS: thiamine 100mg tablet PO SCH ×2 (08:33→20:00)
[2021-07-03] MEDS: cyanocobalamin 500mcg tablet PO SCH (08:33)
[2021-07-03] MEDS: multivitamins, therapeutics tablet PO SCH (08:33)
[2021-07-03] MEDS: folic acid 1mg tablet PO SCH (08:33)
[2021-07-03] MEDS: clonazePAM 1mg tablet PO SCH ×2 (08:34→20:00)
[2021-07-03] MEDS: olanzapine 10mg tablet PO SCH ×2 (08:34→20:00)
[2021-07-03] MEDS: nicotine 21mg patch - 24 hr TD SCH (08:34)
--- NOTE | 2021-07-03 15:48 | NUR ---
Nursing Progress Note: Legal hold: 5270 Client on involuntary status for GD/ DTS Report received from SHARIF Barragan, with use of SBAR Why they are here: Pt. is a direct admit from [facility]. Per report pt. withdrawing from ETOH after binge drinking for over a year. Pt. reportedly drinking 1 quart of whiskey daily. Pt. 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 He is experiencing AH. Pt. placed on 5150 for GD. Pt. had acute pancreatitis but was medically cleared for transfer. Pt. has been at [facility] since 05/24/21. Assessment What happened this shift: Patient was asleep at change of shift and up for breakfast in his room (due to a Covid positive patient on the unit. Patient took his medication and RN showed him each one. Patient still appears very depressed. RN speaking to patient and patient states, "If I say I don't believe in the Alvar[employer]/communication will they let me go?" RN stated she didn't know and that was up to the doctor. Then patient states "They will know that I'm lying because I want to get out of conservatorship." Then patient yells "Fucking Cowards! You can't let Democracy take its course! Not you, (speaking to RN) but them." Then patient walks away and stays in his room. Patient stays in his room more and more; RN believes due to depression. He just cannot accept that he is going to be conserved. S/I, H/I: Denies A/VH: Denies Sleep: Several naps during the day. ADL's: Independent Group attendance: No Groups today due to Covid on the unit Were meds taken: Yes Any med S/E: None observed or reported Mental Status Exam Appearance: Disheveled but clean hair wearing green CB[facility] scrubs Eye contact: Fair Behavior: Quiet and self isolates most of the day. Speech: Clear, normal rate, rhythm Mood: Depressed Affect: Flat Thought process: Linear but no insight Thought Content: Getting out of Conservatorship Cognition: A&O x3 Insight: Poor Judgment: Poor Interventions PRN's used: Nicotine lozenges Therapeutic interventions: 1:1 assessment with therapeutic communication, provided PRN as requested, encouraged participation on the unit and in group therapy, provided clear and simple instructions, provided direction and encouragement regarding performance of ADLs, attempted to orient to reality, and monitored Q15 minute safety checks. Restraints/seclusion/emergency medication: NA Justification of Continued Inpatient Treatment: Patient requires interruption of current crisis in a safe and therapeutic environment. Pursuing [facility] Conservatorship with [facility].
[2021-07-03 19:37] VITALS: BP 108/64
[2021-07-03] MEDS: traZODone 50mg tablet PO PRN (20:00)
[2021-07-04] MEDS: NICOTINE POLACRILEX 2 MG LOZENGE BC PRN ×9 (02:18→23:49)
--- NOTE | 2021-07-04 04:09 | NUR ---
Nursing Progress Note: Legal hold: 5270 Client on involuntary status for GD/ DTS Report received from SHARIF Yoo, with use of SBAR Why they are here: Pt. is a direct admit from [facility]. Per report pt. withdrawing from ETOH after binge drinking for over a year. Pt. reportedly drinking 1 quart of whiskey daily. Pt. 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 He is experiencing AH. Pt. placed on 5150 for GD. Pt. had acute pancreatitis but was medically cleared for transfer. Pt. has been at [facility] since 05/24/21. Assessment What happened this shift: Patient laying in bed at the beginning of shift. Pleasant and cooperative with care; compliant with medication. PRN Nicotine lozenges provided and Nicotine patch removed/discarded by sba underwriter. He denies SI, HI, A/VH; does not appear to be responding to IS and no apparent delusions reported this shift. Patient participated in HS snack and promptly returned to bed; observed sleeping and does not appear to be having difficulty. S/I, H/I: Denies A/VH: Denies Sleep: Refer to sleep assessment ADL's: Independent Group attendance: NA Were meds taken: Yes Any med S/E: None observed or reported Mental Status Exam Appearance: Disheveled, unkempt hair Eye contact: Fair Behavior: Pleasant and cooperative, self isolative Speech: Clear, normal rate, rhythm Mood: Depressed Affect: Flat Thought process: Linear but no insight Thought Content: Getting out of Conservatorship, meeting needs Cognition: A&O x3 Insight: Poor Judgment: Poor Interventions PRN's used: Nicotine lozenges Therapeutic interventions: 1:1 assessment with therapeutic communication, provided PRN as requested, encouraged participation on the unit and in group therapy, provided clear and simple instructions, provided direction and encouragement regarding performance of ADLs, attempted to orient to reality, and monitored Q15 minute safety checks. Restraints/seclusion/emergency medication: NA Justification of Continued Inpatient Treatment: Patient requires interruption of current crisis in a safe and therapeutic environment. [facility].
[2021-07-04 06:55] VITALS: BP 124/80
[2021-07-04 08:00] VITALS: BP 124/80
[2021-07-04] MEDS: thiamine 100mg tablet PO SCH ×2 (08:21→20:27)
[2021-07-04] MEDS: folic acid 1mg tablet PO SCH (08:22)
[2021-07-04] MEDS: clonazePAM 1mg tablet PO SCH ×2 (08:22→20:27)
[2021-07-04] MEDS: cyanocobalamin 500mcg tablet PO SCH (08:22)
[2021-07-04] MEDS: olanzapine 10mg tablet PO SCH ×2 (08:22→20:29)
[2021-07-04] MEDS: multivitamins, therapeutics tablet PO SCH (08:22)
[2021-07-04] MEDS: nicotine 21mg patch - 24 hr TD SCH (08:24)
[2021-07-04] MEDS ORDERED: LORazepam 1 MG tablet PO ONE (15:45)
[2021-07-04] MEDS: OLANZAPINE 5 MG TABLET PO PRN (16:07)
--- NOTE | 2021-07-04 16:57 | NUR ---
Nursing Progress Note: Legal hold: 5270 Client on involuntary status for GD/ DTS Report received from Alannah RAHMAN, with use of SBAR Why they are here: Pt. is a direct admit from [facility]. Per report pt. withdrawing from ETOH after binge drinking for over a year. Pt. reportedly drinking 1 quart of whiskey daily. Pt. 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 He is experiencing AH. Pt. placed on 5150 for GD. Pt. had acute pancreatitis but was medically cleared for transfer. Pt. has been at [facility] since 05/24/21. Assessment What happened this shift: Pt was up for before breakfast to ask for a nicotine lozenge at 0648. Pt was cooperative with morning medications. Pt reports "I just really want to get out of her but every time I think about it I get agitated." After lunch, pt reported sleeping a lot today, he states, "I'll probably just go right back to sleep." Pt became perseverative and mildly agitated in the afternoon. Pt was arguing with the charge nurse that both his parents, Dr Pitt, and Dr Del Toro had said that he could go home. Pt is unable to accept the reality of his situation. Pt asked for an Ativan but did not have an order. MIKAELA Adler ordered a one time dose of Ativan 1 mg and it was given at 1545. A short while later he approached this nurse again to ask for a Trazodone. Pt educated that it was too early for Trazodone, it is given closer to HS. Pt then asked if he had anything available to help him feel drowsy. Pt was given PRN Zyprexa 10 mg at 1607. Pt is currently pacing in the hallway with a blanket wrapped around him listening to the radio headphones. S/I, H/I: Pt denies A/VH: Pt denies Sleep: Pt slept 5.75 hours last night per noc shift report. He did nap for much of the morning today. ADL's: Independent Group attendance: No Groups today. Were meds taken: Yes Any med S/E: None noted or reported. Mental Status Exam Appearance: Tall, thin, pale young man with light bekah hair dressed in clean green unit scrubs. Eye contact: Good Behavior: Mostly pleasant and cooperative though has brief periods of increased anxiety/agitation, naps, paces the unit, listens to radio headphones. Speech: Clear, normal rate & rhythm, articulate. Mood: Depressed Affect: Blunted Thought process: Obsessive, perseverative, delusional. Thought Content: He does not wish to be conserved, he wants to discharge home with parents and his parents and the doctors told him that he could. Cognition: A&O x3 Insight: Poor Judgment: Poor Interventions PRN's used: Nicotine lozenges, Ativan 1 mg, Zyprexa 10 mg. Therapeutic interventions: 1:1 assessment, establishment of rapport, therapeutic conversation, active listening, ensured contract for safety, medication administration/education/monitoring, behavior monitoring and intervention as needed; distraction, redirection, attempted reality orientation, verbal de-escalation, PRN administration, and Q15 minute safety checks. Restraints/seclusion/emergency medication: NA Justification of Continued Inpatient Treatment: Patient requires interruption of current crisis in a safe and therapeutic environment. Parents will not allow pt to live with them due to degree of mental illness, [facility] is pursuing conservatorship.
[2021-07-04 20:02] VITALS: BP 114/67
--- NOTE | 2021-07-05 03:35 | NUR ---
Nursing Progress Note: Legal hold: 5270 Client on involuntary status for GD/ DTS Report received from SHARIF Yoo, with use of SBAR Why they are here: Pt. is a direct admit from [facility]. Per report pt. withdrawing from ETOH after binge drinking for over a year. Pt. reportedly drinking 1 quart of whiskey daily. Pt. 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 He is experiencing AH. Pt. placed on 5150 for GD. Pt. had acute pancreatitis but was medically cleared for transfer. Pt. has been at [facility] since 05/24/21. Assessment What happened this shift: Patient laying in bed at the beginning of shift lights out and door closed. Pleasant and cooperative with care; compliant with medication. PRN Nicotine lozenges provided and Nicotine patch removed/discarded by securities underwriter. He denies SI, HI, A/VH; does not appear to be responding to IS and no apparent delusions reported this shift. Patient participated in HS snack and promptly returned to bed; observed sleeping and did not appear to be having difficulty. S/I, H/I: Denies A/VH: Denies Sleep: Refer to sleep assessment ADL's: Independent Group attendance: NA Were meds taken: Yes Any med S/E: None observed or reported Mental Status Exam Appearance: Disheveled, unkempt hair Eye contact: Fair Behavior: Pleasant and cooperative, self isolative Speech: Clear, normal rate, rhythm Mood: Depressed Affect: Flat Thought process: Linear but no insight Thought Content: Getting out of Conservatorship, meeting needs Cognition: A&O x3 Insight: Poor Judgment: Poor Interventions PRN's used: Nicotine lozenges Therapeutic interventions: 1:1 assessment with therapeutic communication, provided PRN as requested, encouraged participation on the unit and in group therapy, provided clear and simple instructions, provided direction and encouragement regarding performance of ADLs, attempted to orient to reality, and monitored Q15 minute safety checks. Restraints/seclusion/emergency medication: NA Justification of Continued Inpatient Treatment: Patient requires interruption of current crisis in a safe and therapeutic environment. [facility].
[2021-07-05] MEDS: NICOTINE POLACRILEX 2 MG LOZENGE BC PRN ×8 (04:48→22:04)
[2021-07-05 07:46] VITALS: BP 120/78
[2021-07-05] MEDS: clonazePAM 1mg tablet PO SCH ×2 (07:47→20:13)
[2021-07-05] MEDS: folic acid 1mg tablet PO SCH (07:47)
[2021-07-05] MEDS: thiamine 100mg tablet PO SCH ×2 (07:48→20:14)
[2021-07-05] MEDS: cyanocobalamin 500mcg tablet PO SCH (07:48)
[2021-07-05] MEDS: olanzapine 10mg tablet PO SCH ×2 (07:48→20:13)
[2021-07-05] MEDS: multivitamins, therapeutics tablet PO SCH (07:48)
[2021-07-05] MEDS: nicotine 21mg patch - 24 hr TD SCH (07:51)
--- NOTE | 2021-07-05 16:03 | NUR ---
Nursing Progress Note Legal hold: 5270 Client on involuntary status for GD/ DTS Report received RN with use of SBAR Why they are here: Pt. is a direct admit from [facility]. Per report pt. withdrawing from ETOH after binge drinking for over a year. Pt. reportedly drinking 1 quart of whiskey daily. Pt. 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 He is experiencing AH. Pt. placed on 5150 for GD. Pt. had acute pancreatitis but was medically cleared for transfer. Pt. has been at [facility] since 05/24/21. Assessment What happened this shift: Received Pt in bed sleeping w/o distress at the beginning of the shift. Pt woke and was cooperative with vitals and returned to bed. Pt asked for a nicotine lozenges throughout the day approximately every 2 hrs. Jose Alejandro took AM meds w/o issue and ate meals well. Pt talked with this RN extensively about how he could get released before the temporary conservatorship. Pt believes that he can get his parents to agree to take him in and they will provide third republican assistance. Jose Alejandro remains guarded and isolative and spent most of day in his room, with moments of time in recreation room looking out the window. Pt denies MH symptoms; Im not mentally unstable. S/I, H/I: Denies A/VH: + Delusions Sleep: None noted this shift ADL's: Independent Group attendance: NA Were Meds taken: Yes Any med S/E: None reported or noted Mental Status Exam Appearance: Disheveled in scrubs Eye contact: Good Behavior: Cooperative, anxious Speech: Clear, coherent Mood: OK Affect: Constricted Thought process: Disorganized at times Thought Content: Perseverates on Nicotine Lozenges Cognition: A&O x2 to person and place Insight: Poor Judgment: Poor Interventions PRN's used: Nicotine lozenges Therapeutic interventions: 1:1 assessment with therapeutic communication, provided PRN as requested, encouraged patience to stay in the hospital until seen by a provider, provided clear and simple instructions, provided direction and encouragement regarding performance of ADLs, and monitored Q15 minute safety checks. Restraints/seclusion/emergency medication: NA Justification of Continued Inpatient Treatment: Patient requires interruption of current crisis in a safe and therapeutic environment. Parents will not allow pt to live with them due to degree of mental illness, [facility] is pursuing conservatorship.
[2021-07-05 19:36] VITALS: BP 116/65
[2021-07-05] MEDS: traZODone 50mg tablet PO PRN (20:13)
[2021-07-06] MEDS: NICOTINE POLACRILEX 2 MG LOZENGE BC PRN ×5 (03:18→18:30)
--- NOTE | 2021-07-06 05:04 | NUR ---
Nursing Progress Note: Legal hold: 5270 Client on involuntary status for GD/ DTS Report received from JOSE Camara, with use of SBAR Why they are here: Pt. is a direct admit from [facility]. Per report pt. withdrawing from ETOH after binge drinking for over a year. Pt. reportedly drinking 1 quart of whiskey daily. Pt. 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 He is experiencing AH. Pt. placed on 5150 for GD. Pt. had acute pancreatitis but was medically cleared for transfer. Pt. has been at [facility] since 05/24/21. Assessment What happened this shift: Patient awake in his room at the beginning of shift. Pleasant and cooperative with care; compliant with medication. Nicotine patch removed and PRN lozenges provided. Patient denies SI, HI, A/VH; no apparent delusions reported this shift but patient appears to be paranoid about washing his hair. He participated in HS snack and paced the cuellar prior to bed; observed sleeping and does not appear to be having difficulty. S/I, H/I: Denies A/VH: Denies Sleep: Refer to sleep assessment ADL's: Independent Group attendance: NA Were meds taken: Yes Any med S/E: None observed or reported Mental Status Exam Appearance: Disheveled, unkempt hair Eye contact: Fair Behavior: Pleasant and cooperative, self isolative, pacing the cuellar Speech: Clear, normal rate, rhythm Mood: Depressed Affect: Flat Thought process: Linear but no insight; possible paranoid delusions Thought Content: Meeting needs Cognition: A&O x3 Insight: Poor Judgment: Poor Interventions PRN's used: Nicotine lozenges Therapeutic interventions: 1:1 assessment with therapeutic communication, provided PRN as requested, encouraged participation on the unit and in group therapy, provided clear and simple instructions, provided direction and encouragement regarding performance of ADLs, attempted to orient to reality, and monitored Q15 minute safety checks. Restraints/seclusion/emergency medication: NA Justification of Continued Inpatient Treatment: Patient requires interruption of current crisis in a safe and therapeutic environment. Pursuing [facility] Conservatorship with [facility].
[2021-07-06] MEDS: olanzapine 10mg tablet PO SCH ×2 (07:20→20:01)
[2021-07-06] MEDS: clonazePAM 1mg tablet PO SCH ×2 (07:20→20:01)
[2021-07-06] MEDS: cyanocobalamin 500mcg tablet PO SCH (07:20)
[2021-07-06] MEDS: folic acid 1mg tablet PO SCH (07:20)
[2021-07-06] MEDS: thiamine 100mg tablet PO SCH ×2 (07:20→20:01)
[2021-07-06] MEDS: nicotine 21mg patch - 24 hr TD SCH (07:20)
[2021-07-06] MEDS: multivitamins, therapeutics tablet PO SCH (07:20)
[2021-07-06 08:12] VITALS: BP 116/74
--- NOTE | 2021-07-06 17:44 | NUR ---
Nursing Progress Note: Legal hold: 5270 Client on involuntary status for GD/ DTS Report received from JOSE Overton, with use of SBAR Why they are here: Pt. is a direct admit from [facility]. Per report pt. withdrawing from ETOH after binge drinking for over a year. Pt. reportedly drinking 1 quart of whiskey daily. Pt. 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 He is experiencing AH. Pt. placed on 5150 for GD. Pt. had acute pancreatitis but was medically cleared for transfer. Pt. has been at [facility] since 05/24/21. Assessment What happened this shift: Received patient when he awoke at 0655 and requested a Nicotine Lozenge. Informed patient that it was too soon for the Lozenge, it would be 25 minutes then he could have it. Patient sat in a chair in the TV Room looking out the window and wearing headphones until about 0725. Patient Assessment & Interview completed before breakfast. Patient reports he slept fairly well. Medications administered at 0725. Patient waited in the dining room drinking iced coffee until breakfast. Patient returned back to his room immediately after breakfast and napped. Patient ambulated in the cuellar briefly then ate in the Community Room. Patient again slept from 1340 to 1600 and requested a Nicotine Lozenge at 1600. Patient returned to bed and is resting at this time. S/I, H/I: Denies A/VH: Denies Sleep: Patient took AM nap from 0810 to 1030 & Afternoon nap from 1340 to 1600= Total 3 hrs ADL's: Independent Group attendance: No Group Meeting held today. Were meds taken: Yes, without hesitation. Any med S/E: None observed or reported Mental Status Exam Appearance: Disheveled, unkempt hair standing up on his head, red in color, dressing in green unit scrubs with a white warm blanket wrapped around his upper torso. Eye contact: Fair Behavior: Pleasant and cooperative. Speech: Clear, normal rate, rhythm Mood: Euthymic Affect: Flat Thought process: Meeting Own Needs Thought Content: Meeting Own Needs Cognition: A&O x3 Insight: Poor Judgment: Poor Interventions PRN's used: Nicotine lozenges Therapeutic interventions: 1:1 assessment with therapeutic communication, provided PRN as requested, encouraged participation on the unit and in group therapy, provided clear and simple instructions, provided direction and encouragement regarding performance of ADLs, attempted to orient to reality, and monitored Q15 minute safety checks. Restraints/seclusion/emergency medication: NA Justification of Continued Inpatient Treatment: Patient requires interruption of current crisis in a safe and therapeutic environment. Pursuing [facility] Conservatorship with [facility].
[2021-07-06 19:00] VITALS: BP 113/67
[2021-07-06] MEDS: traZODone 50mg tablet PO PRN (20:01)
--- NOTE | 2021-07-07 04:42 | NUR ---
Nursing Progress Note: Legal hold: 5270 Client on involuntary status for GD/ DTS Report received from JOSE Garcia, with use of SBAR Why they are here: Pt. is a direct admit from [facility]. Per report pt. withdrawing from ETOH after binge drinking for over a year. Pt. reportedly drinking 1 quart of whiskey daily. Pt. 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 He is experiencing AH. Pt. placed on 5150 for GD. Pt. had acute pancreatitis but was medically cleared for transfer. Pt. has been at [facility] since 05/24/21. Assessment What happened this shift: Patient watching out the window in the recreation room at the beginning of shift. Pleasant and cooperative with care; compliant with medication. PRN Nicotine lozenge provided and Nicotine patch removed. Patient denies SI, HI, A/VH; no apparent delusions reported this shift. Patient clipped his nails, shaved his face, showered (hair washed/combed), bedding changed this shift. Patient explained he hadn't washed his hair previously d/t not liking how the shampoo dries his hair out and that at home he uses coconut oil; parts data writer suggested coconut oil infused shampoo/conditioner that we have on the unit and he was willing to try it. Patient participated in HS snack and briefly walked the cuellar prior to bed; observed sleeping and does not appear to be having difficulty. S/I, H/I: Denies A/VH: Denies Sleep: Refer to sleep assessment ADL's: Independent Group attendance: NA Were meds taken: Yes Any med S/E: None observed or reported Mental Status Exam Appearance: Showered, neat, shaved, appropriately dressed in green unit attire Eye contact: Fair Behavior: Pleasant and cooperative, self isolative, pacing the cuellar Speech: Clear, normal rate, rhythm Mood: Depressed Affect: Flat Thought process: Linear Thought Content: Meeting needs Cognition: A&O x3 Insight: Poor Judgment: Poor Interventions PRN's used: Nicotine lozenges Therapeutic interventions: 1:1 assessment with therapeutic communication, provided PRN as requested, encouraged participation on the unit and in group therapy, provided clear and simple instructions, provided direction and encouragement regarding performance of ADLs, attempted to orient to reality, and monitored Q15 minute safety checks. Restraints/seclusion/emergency medication: NA Justification of Continued Inpatient Treatment: Patient requires interruption of current crisis in a safe and therapeutic environment. Pursuing [facility] Conservatorship with [facility].
[2021-07-07] MEDS: NICOTINE POLACRILEX 2 MG LOZENGE BC PRN ×6 (06:45→20:19)
[2021-07-07] MEDS: nicotine 21mg patch - 24 hr TD SCH (07:24)
[2021-07-07] MEDS: thiamine 100mg tablet PO SCH ×2 (07:25→20:19)
[2021-07-07] MEDS: olanzapine 10mg tablet PO SCH ×2 (07:25→20:19)
[2021-07-07] MEDS: clonazePAM 1mg tablet PO SCH ×2 (07:25→20:19)
[2021-07-07] MEDS: cyanocobalamin 500mcg tablet PO SCH (07:25)
[2021-07-07] MEDS: multivitamins, therapeutics tablet PO SCH (07:25)
[2021-07-07] MEDS: folic acid 1mg tablet PO SCH (07:25)
[2021-07-07 07:59] VITALS: BP 112/69
--- NOTE | 2021-07-07 11:47 | NUR ---
Communicated with Maricel Montemayor [facility] Public Guardian (ph# [phone]), regarding when the T con should be signed. She reported it was submitted to the court last week and they think it will be signed by the credit administration officer today or tomorrow. Returned Jose Alejandro's mother's phone call (Yamel ph# [phone]) and apprised her that the T-Con may get signed today or tomorrow. She reported she is struggling with Jose Alejandro calling and insisting she pick him up. She really wants him to continue with treatment. JOSE Johnson
--- NOTE | 2021-07-07 17:15 | NUR ---
Nursing Progress Note: Legal hold: 5270 Client on involuntary status for GD/ DTS Report received from JOSE Tolentino, with use of SBAR Why they are here: Pt. is a direct admit from [facility]. Per report pt. withdrawing from ETOH after binge drinking for over a year. Pt. reportedly drinking 1 quart of whiskey daily. Pt. 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 He is experiencing AH. Pt. placed on 5150 for GD. Pt. had acute pancreatitis but was medically cleared for transfer. Pt. has been at [facility] since 05/24/21. Assessment What happened this shift: Received patient while he was ambulating in the cuellar and requested a Nicotine Lozenge @ 0645. Patient requested his Nicotine Patch and all other medications now. Informed patient that I would be administering his medications between 0730 & 0800. Patient agreed with this. Patient went to the TV Room and sat with headphones looking out the window. 0800 medications given to the patient and assessment and interview completed. At approximately 1115, patient was sitting in a chair in the hallway in front of the TV room, and he could be overheard yelling at his mom, using profane language, telling her to come pick him up today. Patient continued to escalate a few more times, then patients mom must have hung up on the phone because patient returned the phone to the anesthesiology technologist immediately. Patient returned to go back to bed until lunch. Patient ate lunch in the Community Room, and returned back to bed. At approximately 1345, patient was excused by a staff member out of the TV Room secondary to a Group Meeting being held at this time. Patient became very angry verbalizing foul words at the staff member who had him leave the TV room, stating Thats fine, Ill just pace the floors and wait until your Group is over with, thats just fine. While pacing, the patient could be overheard whispering and communicating to himself information about his current hold, and it appears communication with another person. Unable to hear who the other person the patient may be talking too while he was ambulating multiple laps over and over in the hallway. S/I, H/I: Denies A/VH: Patient could be heard talking to himself while walking laps over and over in the hallway, which started at 1345. Patient appears angry and states I dont know Sleep: 6.75 hours ADL's: Independent Group attendance: Group Meeting held today. Patient did not attend. Were meds taken: Yes, without hesitation. Any med S/E: None observed or reported Mental Status Exam Appearance: Disheveled, unkempt hair standing up on his head, red in color, dressing in green unit scrubs with a white warm blanket wrapped around his upper torso. Eye contact: Fair Behavior: Pleasant and cooperative. Speech: Clear, normal rate, rhythm Mood: Euthymic to Agitated over closing of the door to TV room. Affect: Flat Thought process: Thought Content: Flight of Ideas Cognition: A&O x3 Insight: Poor Judgment: Poor Interventions PRN's used: Nicotine lozenges Therapeutic interventions: 1:1 assessment with therapeutic communication, provided PRN as requested, encouraged participation on the unit and in group therapy, provided clear and simple instructions, provided direction and encouragement regarding performance of ADLs, attempted to orient to reality, and monitored Q15 minute safety checks. Restraints/seclusion/emergency medication: NA Justification of Continued Inpatient Treatment: Patient requires interruption of current crisis in a safe and therapeutic environment. Pursuing [facility] Conservatorship with [facility].
[2021-07-07] MEDS: traZODone 50mg tablet PO PRN (20:19)
[2021-07-07 20:21] VITALS: BP 117/68
--- NOTE | 2021-07-08 01:52 | NUR ---
Nursing Progress Note: Jose Alejandro Legal hold: 5270 Client on involuntary status for GD/ DTS Report received from JOSE Lay, with use of SBAR Why they are here: Pt. is a direct admit from [facility]. Per report pt. withdrawing from ETOH after binge drinking for over a year. Pt. reportedly drinking 1 quart of whiskey daily. Pt. 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 He is experiencing AH. Pt. placed on 5150 for GD. Pt. had acute pancreatitis but was medically cleared for transfer. Pt. has been at [facility] since 05/24/21. Assessment What happened this shift: Pt agitated at start of shift. He stood at the nurses station talking about radiation and mind control. Pt is angry that he is here. Denies any mental illness he says "they are controlling everyone to think he is schizophrenic. He spoke angrily and loudly to several different staff members for about an hour. Left several verbally abusive messages on his parents answering machine. Any attempt to orient him to reality him failed. He has no insight into his mental illness. He finally calmed down asked for his medications. Given all HS meds. Refused to remove his nicotine patch. He went to bed listened to headphones in bed till he fell asleep. S/I, H/I: Denies A/VH: Denies but at times seems to be responding to internal stimuli Sleep: asleep at this time ADL's: Independent Group attendance: Group Meeting held today. Patient did not attend. Were meds taken: Yes, without hesitation Any med S/E: None observed or reported Mental Status Exam Appearance: Disheveled, unkempt hair standing up on his head, red in color, dressing in green unit scrubs with a white warm blanket wrapped around his upper torso. Eye contact: intense Behavior: Angry but cooperative Speech: Rapid loud at times Mood: Agitated Affect: Animated Thought process: Flight of Ideas Thought Content: Some malicious force controlling everything that happens to him Cognition: A&O x3 Insight: Poor Judgment: Poor Interventions PRN's used: Nicotine lozenges Trazodone Therapeutic interventions: 1:1 assessment with therapeutic communication, provided PRN as requested, encouraged participation on the unit and in group therapy, provided clear and simple instructions, provided direction and encouragement regarding performance of ADLs, attempted to orient to reality, and monitored Q15 minute safety checks. Restraints/seclusion/emergency medication: NA Justification of Continued Inpatient Treatment: Patient requires interruption of current crisis in a safe and therapeutic environment. Pursuing [facility] Conservatorship with [facility].
[2021-07-08] MEDS: NICOTINE POLACRILEX 2 MG LOZENGE BC PRN ×7 (07:37→22:03)
[2021-07-08 07:40] VITALS: BP 112/52
[2021-07-08] MEDS: olanzapine 10mg tablet PO SCH ×2 (08:07→19:54)
[2021-07-08] MEDS: thiamine 100mg tablet PO SCH ×2 (08:07→19:54)
[2021-07-08] MEDS: multivitamins, therapeutics tablet PO SCH (08:07)
[2021-07-08] MEDS: clonazePAM 1mg tablet PO SCH ×2 (08:07→19:54)
[2021-07-08] MEDS: cyanocobalamin 500mcg tablet PO SCH (08:07)
[2021-07-08] MEDS: folic acid 1mg tablet PO SCH (08:07)
[2021-07-08] MEDS: nicotine 21mg patch - 24 hr TD SCH (08:07)
[2021-07-08] MEDS ORDERED: LORazepam 1 MG tablet PO ONE (14:15)
--- NOTE | 2021-07-08 15:18 | NUR ---
Nursing Progress Note: Legal hold: 5270 Client on involuntary status for GD/ DTS Report received from JOSE Tolentino, with use of SBAR Why they are here: Pt. is a direct admit from [facility]. Per report pt. withdrawing from ETOH after binge drinking for over a year. Pt. reportedly drinking 1 quart of whiskey daily. Pt. 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 He is experiencing AH. Pt. placed on 5150 for GD. Pt. had acute pancreatitis but was medically cleared for transfer. Pt. has been at [facility] since 05/24/21. Assessment What happened this shift: Patient was asleep at change of shift and up before breakfast. Patient is always polite and kind to staff. Patient was on the phone with his mom and speaking to Yojana who is standing in front of him. Patient asked Yojana if the paper sales manager has ordered the T-Con yet. Yojana states not yet. Patient wanted his mom to speak to Dr Del Toro right then and there. Dr. Del Toro refused. Patient got angry and told RN he was angry and asked for an Ativan and stated he just wants to go to sleep. Patient got a one time order of Ativan. Patient was calm soon after. S/I, H/I: Denies A/VH: Denies but sometimes appears to be responding to internal stimuli Sleep: Short naps during the day ADL's: Independent Group attendance: No Were meds taken: Yes Any med S/E: None observed or reported Mental Status Exam Appearance: Disheveled, unkempt hair standing up on his head, red in color, dressing in green unit scrubs with a white warm blanket wrapped around his upper torso. Eye contact: Good Behavior: Pleasant and cooperative. Speech: Clear, normal rate, rhythm Mood: Euthymic to Agitated over Dr Del Toro Affect: Flat Thought process: Linear with fixed delusion Thought Content: Getting out of conservatorship Cognition: A&O x3 Insight: Poor Judgment: Poor Interventions PRN's used: Nicotine lozenges, Ativan x 1 Therapeutic interventions: 1:1 assessment with therapeutic communication, provided PRN as requested, encouraged participation on the unit and in group therapy, provided clear and simple instructions, provided direction and encouragement regarding performance of ADLs, attempted to orient to reality, and monitored Q15 minute safety checks. Restraints/seclusion/emergency medication: NA Justification of Continued Inpatient Treatment: Patient requires interruption of current crisis in a safe and therapeutic environment. Pursuing [facility] Conservatorship with [facility].
--- NOTE | 2021-07-08 15:56 | NUR ---
PRN Atarax given. 25 mg.
[2021-07-08 19:28] VITALS: BP 116/71
[2021-07-08] MEDS: traZODone 50mg tablet PO PRN (19:54)
--- NOTE | 2021-07-09 04:50 | NUR ---
Nursing Progress Note: Legal hold: 5270 Client on involuntary status for GD/ DTS Report received from JOSE Lay, with use of SBAR Why they are here: Pt. is a direct admit from [facility]. Per report pt. withdrawing from ETOH after binge drinking for over a year. Pt. reportedly drinking 1 quart of whiskey daily. Pt. 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 He is experiencing AH. Pt. placed on 5150 for GD. Pt. had acute pancreatitis but was medically cleared for transfer. Pt. has been at [facility] since 05/24/21. Assessment What happened this shift: Patient awake in his room at the beginning of shift. Pleasant and cooperative with care; compliant with medication. PRN Nicotine provided and Nicotine patch removed. Patient denies SI, HI, A/VH but continues to wish he'd drank himself to . Patient stopped himself when he began to talk about "being controlled by neuroethology" and stated, "oops, I shouldn't talk about that" and changed the subject. Patient participated in HS snack and briefly walked the cuellar prior to bed; observed sleeping and does not appear to be having difficulty. S/I, H/I: Denies A/VH: Denies Sleep: Refer to sleep assessment ADL's: Independent Group attendance: NA Were meds taken: Yes Any med S/E: None observed or reported Mental Status Exam Appearance: Hair unkempt, appropriately dressed in green unit attire Eye contact: Fair Behavior: Pleasant and cooperative, self isolative, pacing the cuellar Speech: Clear, normal rate, rhythm Mood: Depressed Affect: Flat Thought process: Linear with delusions Thought Content: Meeting needs Cognition: A&O x3 Insight: Poor Judgment: Poor Interventions PRN's used: Nicotine lozenges Therapeutic interventions: 1:1 assessment with therapeutic communication, provided PRN as requested, encouraged participation on the unit and in group therapy, provided clear and simple instructions, provided direction and encouragement regarding performance of ADLs, attempted to orient to reality, and monitored Q15 minute safety checks. Restraints/seclusion/emergency medication: NA Justification of Continued Inpatient Treatment: Patient requires interruption of current crisis in a safe and therapeutic environment. [facility].
[2021-07-09] MEDS: NICOTINE POLACRILEX 2 MG LOZENGE BC PRN ×7 (05:33→20:13)
[2021-07-09 07:39] VITALS: BP 117/73
[2021-07-09] MEDS: folic acid 1mg tablet PO SCH (08:12)
[2021-07-09] MEDS: olanzapine 10mg tablet PO SCH ×2 (08:12→20:14)
[2021-07-09] MEDS: nicotine 21mg patch - 24 hr TD SCH ×2 (08:12→10:35)
[2021-07-09] MEDS: cyanocobalamin 500mcg tablet PO SCH (08:12)
[2021-07-09] MEDS: thiamine 100mg tablet PO SCH ×2 (08:12→20:13)
[2021-07-09] MEDS: multivitamins, therapeutics tablet PO SCH (08:12)
[2021-07-09] MEDS: clonazePAM 1mg tablet PO SCH ×2 (08:12→20:13)
--- NOTE | 2021-07-09 11:35 | NUR ---
Reassessment: Pt continues eating well with mostly 100% PO intake while receiving double protein TID, double veggies BIDLD, smoothie BIDBD, and a shake WL. Per recreation worker pt participating in snacks. Recommend discontinuing shake and smoothies as pt exceeding estimated energy and protein needs for IBW by greater than 150% with just PO intake of meals alone, d/w dietary. Pt +9.4 kg since admit two months ago. LBM /. Will continue to follow. Recommendations: 1. Continue regular diet with double protein TID per diet order 2. Double vegetables BIDLD for satiety; consider discontinuing given pt exceeding estimated nutrient needs 3. Continue routine Thiamine, Folic acid, and MVI given EtOH hx 4. Bowel care per rx 5. Weekly scaled wts Addendum: 07/09/21 at [address] Amended: Links added.
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
[2021-07-09 19:44] VITALS: BP 108/70
[2021-07-09] MEDS: traZODone 50mg tablet PO PRN (20:14)
[2021-07-10] MEDS: NICOTINE POLACRILEX 2 MG LOZENGE BC PRN ×8 (02:35→20:42)
--- NOTE | 2021-07-10 04:21 | NUR ---
Nursing Progress Note: Legal hold: 5270 Client on involuntary status for GD/ DTS Report received from JOSE Lay, with use of SBAR Why they are here: Pt. is a direct admit from [facility]. Per report pt. withdrawing from ETOH after binge drinking for over a year. Pt. reportedly drinking 1 quart of whiskey daily. Pt. 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 He is experiencing AH. Pt. placed on 5150 for GD. Pt. had acute pancreatitis but was medically cleared for transfer. Pt. has been at [facility] since 05/24/21. Assessment What happened this shift: Patient social with peer in the recreation room at the beginning of shift. Pleasant and cooperative with care; compliant with medication. PRN Nicotine lozenge provided and patch removed. Patient denies SI; continues to wish he had from the alcohol though. Denies HI and A/VH; observed responding to IS while wearing headphones. Patient reports not really believing his Dx of schizophrenia and "still convinced neuro-technology stuff is real" but continued to state, "I know it's probably all just delusional though." Patient asking for phone number for news articles again but accepted that staff was unable to provided those numbers without any outbursts. Patient paced the cuellar and participated in HS snack prior to bed; observed sleeping and does not appear to be having difficulty. S/I, H/I: Denies A/VH: Responding to IS Sleep: Refer to sleep assessment ADL's: Independent Group attendance: NA Were meds taken: Yes Any med S/E: None observed or reported Mental Status Exam Appearance: Hair unkempt, appropriately dressed in green unit attire Eye contact: Fair Behavior: Pleasant and cooperative, social, pacing the cuellar Speech: Clear, normal rate, rhythm Mood: Depressed Affect: Flat Thought process: Linear with delusions Thought Content: Meeting needs Cognition: A&O x3 Insight: Poor Judgment: Poor Interventions PRN's used: Nicotine lozenges Therapeutic interventions: 1:1 assessment with therapeutic communication, provided PRN as requested, encouraged participation on the unit and in group therapy, provided clear and simple instructions, provided direction and encouragement regarding performance of ADLs, attempted to orient to reality, and monitored Q15 minute safety checks. Restraints/seclusion/emergency medication: NA Justification of Continued Inpatient Treatment: Patient requires interruption of current crisis in a safe and therapeutic environment. Pursuing [facility] Conservatorship with [place] [facility].
[2021-07-10] MEDS: nicotine 21mg patch - 24 hr TD SCH (07:37)
[2021-07-10] MEDS: thiamine 100mg tablet PO SCH ×2 (07:45→19:56)
[2021-07-10] MEDS: multivitamins, therapeutics tablet PO SCH (07:45)
[2021-07-10] MEDS: cyanocobalamin 500mcg tablet PO SCH (07:45)
[2021-07-10] MEDS: folic acid 1mg tablet PO SCH (07:45)
[2021-07-10] MEDS: clonazePAM 1mg tablet PO SCH ×2 (07:45→19:56)
[2021-07-10 07:53] VITALS: BP 125/75
[2021-07-10] MEDS: olanzapine 10mg tablet PO SCH ×2 (08:00→19:56)
--- NOTE | 2021-07-10 14:26 | NUR ---
FLORENCIA Received signed TCON from [facility] which expires on 08/04/21. JOSE Johnson Addendum: 07/10/21 at 1456 by Yojana JAY FLORENCIA hearing/court will be 08/04/21.
--- NOTE | 2021-07-10 14:52 | NUR ---
Called Jose Alejandro's mom, Yamel (ph # [phone]) to apprise her that we just received TCON. Answered her questions. Informed her that we now are allowing visitors and encouraged family to visit. Requested they bring Jose Alejandro philosophy books or other books he would enjoy reading. JOSE Johnson
--- NOTE | 2021-07-10 16:04 | NUR ---
Nursing Progress Note: Legal hold: TCON Client on involuntary status for GD/ DTS Report received from Laurel, with use of SBAR Why they are here: Pt. is a direct admit from [facility]. Per report pt. withdrawing from ETOH after binge drinking for over a year. Pt. reportedly drinking 1 quart of whiskey daily. Pt. 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 He is experiencing AH. Pt. placed on 5150 for GD. Pt. had acute pancreatitis but was medically cleared for transfer. Pt. has been at [facility] since 05/24/21. Assessment What happened this shift: Pt was up for before breakfast. Pt asked for a nicotine lozenge at 0735. Pt was angry this morning. When asked how he was doing he replied, "I'm actually really agitated, I should be discharged today, I'm mad at Dr Del Toro, I want to yell at him. At breakfast, pt took his vitamins and his Klonopin but refused to take his Zyprexa. Pt began angrily ranting about neuro technology being real, how they have tormented him for 4 years, caused fractures, fatigue, dizziness, his heart is in the wrong place, it's now in his abdomen, they convinced him to get engaged. (Pt showed this RN a ring he wears on his left ring finger.) Pt insists that he is not delusional. "I'm not schizophrenic, I don't accept that." Dr Del Toro was notified of pt's refusal to take his Zyprexa this morning. Pt was served his TCON paperwork by social media assistant Yojana this afternoon just before 1500. Pt became angry and agitated. Pt yelled "Fuck!" really loudly in the hallway. Pt became somewhat verbally aggressive with the charge nurse. Pt paced the cuellar voicing angry statements, "I was fpc through a master's program!" Pt made derisive comments about doctors and staff members here. Pt walked up and down the hallway reading his TCON paperwork. Earlier, pt had asked this nurse to print out some articles for him. Pt advised that we have been told not to print out any articles on neuro technology that may reinforce any delusions. Pt stated that he wished to read something on philosophy. Pt states he is tired of reading the books available here which are romance novels he states are like soft porn. He likes to read poetry or philosophy. Pt requested articles from philosophers Ian and Sarbjit Anderson. There was no mention on neuro or alvaro technologies in the articles reviewed and then printed by this RN. Printed out 2 articles, one on Ian and the other on Sarbjit Anderson and their philosophies. Spoke with social media assistant Yojana about the appropriateness of giving him something to read that would distract him from his anger at being on a TCON and not feed into his delusions. Yojana agreed that articles about philosophers should be okay. Pt was given the articles. He expressed appreciation and said that it was just what he needed. Pt is now calmly reading in his room. reforestation worker communicated with parents and mentioned that perhaps they could bring in some reading material for Jose Alejandro that he would enjoy. S/I, H/I: Pt denies A/VH: Pt denies Sleep: Pt slept 7 hours last night per noc shift report. ADL's: Independent Group attendance: No Were meds taken: Pt refused his Zyprexa today. Any med S/E: None noted or reported. Mental Status Exam Appearance: Tall, thin, pale young man with light bekah hair dressed in clean green unit scrubs. Eye contact: Good Behavior: Mostly pleasant and cooperative though has brief periods of increased anxiety/agitation, paces the unit, makes phone calls, listens to radio headphones. Speech: Clear, normal rate & rhythm, articulate. Mood: Angry, agitated Affect: Congruent. Thought process: Obsessive, perseverative, delusional. Thought Content: He is not happy about being placed on a TCON. He wishes to read books on philosophy and poetry which are not available on the unit. Cognition: A&O x3 Insight: Poor Judgment: Poor Interventions PRN's used: Nicotine lozenges Therapeutic interventions: 1:1 assessment, therapeutic conversation, active listening, ensured contract for safety, medication administration/education/monitoring, behavior monitoring and intervention as needed; distraction, redirection, attempted reality orientation, verbal de-escalation, show of support, and Q15 minute safety checks. Restraints/seclusion/emergency medication: None Justification of Continued Inpatient Treatment: Pt continues to perseverate on delusions about neuro technology, reality orientation has been ineffective, he becomes angry that no one believes him. He continues to be gravely disabled and was placed on a TCON today 07/10/21.
[2021-07-10 19:00] VITALS: BP 126/75
[2021-07-10] MEDS: traZODone 50mg tablet PO PRN (19:56)
--- NOTE | 2021-07-11 04:50 | NUR ---
Nursing Progress Note: Legal hold: TCON Client on involuntary status for GD/ DTS Report received from JOSE Yoo, with use of SBAR Why they are here: Pt. is a direct admit from [facility]. Per report pt. withdrawing from ETOH after binge drinking for over a year. Pt. reportedly drinking 1 quart of whiskey daily. Pt. 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 He is experiencing AH. Pt. placed on 5150 for GD. Pt. had acute pancreatitis but was medically cleared for transfer. Pt. has been at [facility] since 05/24/21. Assessment What happened this shift: Patient walking the unit with headphones on at the beginning of shift. Pleasant and cooperative with care; compliant with medication. PRN Nicotine lozenge provided and patch removed. Patient denies SI, HI, A/VH; endorses depression and appears to be suppressing delusional thought content as he just smiles and states, "I know I shouldn't say that." Patient was apologetic for his behaviors in previous shift and reported, "I just want to work on getting better and not be so agitated." He participated in HS snack prior to bed; observed sleeping and does not appear to be having difficulty. S/I, H/I: Denies A/VH: Denies Sleep: Refer to sleep assessment ADL's: Independent Group attendance: NA Were meds taken: Yes Any med S/E: None observed or reported Mental Status Exam Appearance: Hair unkempt, appropriately dressed in green unit attire Eye contact: Fair Behavior: Pleasant and cooperative, social, pacing the cuellar Speech: Clear, normal rate, rhythm Mood: Depressed Affect: Flat Thought process: Linear with delusions Thought Content: Meeting needs Cognition: A&O x3 Insight: Poor Judgment: Poor Interventions PRN's used: Nicotine lozenges Therapeutic interventions: 1:1 assessment with therapeutic communication, provided PRN as requested, encouraged participation on the unit and in group therapy, provided clear and simple instructions, provided direction and encouragement regarding performance of ADLs, attempted to orient to reality, and monitored Q15 minute safety checks. Restraints/seclusion/emergency medication: NA Justification of Continued Inpatient Treatment: Patient requires interruption of current crisis in a safe and therapeutic environment. [facility]
[2021-07-11] MEDS: cyanocobalamin 500mcg tablet PO SCH (07:59)
[2021-07-11] MEDS: clonazePAM 1mg tablet PO SCH ×2 (07:59→20:09)
[2021-07-11] MEDS: multivitamins, therapeutics tablet PO SCH (07:59)
[2021-07-11] MEDS: folic acid 1mg tablet PO SCH (07:59)
[2021-07-11] MEDS: thiamine 100mg tablet PO SCH ×2 (07:59→20:07)
[2021-07-11 08:00] VITALS: BP 109/71
[2021-07-11] MEDS: olanzapine 10mg tablet PO SCH ×2 (08:00→20:07)
[2021-07-11] MEDS: nicotine 21mg patch - 24 hr TD SCH (08:06)
[2021-07-11] MEDS: NICOTINE POLACRILEX 2 MG LOZENGE BC PRN ×6 (08:24→19:30)
[2021-07-11] MEDS: OLANZAPINE 5 MG TABLET PO PRN (10:23)
--- NOTE | 2021-07-11 16:07 | NUR ---
Nursing Progress Note: Legal hold: TCON Client on involuntary status for GD/ DTS Report received from Mimi García, with use of SBAR Why they are here: Pt. is a direct admit from [facility]. Per report pt. withdrawing from ETOH after binge drinking for over a year. Pt. reportedly drinking 1 quart of whiskey daily. Pt. 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 He is experiencing AH. Pt. placed on 5150 for GD. Pt. had acute pancreatitis but was medically cleared for transfer. Pt. has been at [facility] since 05/24/21. Assessment What happened this shift: Pt was up for breakfast and cooperative with medications. Pt paced and listened to radio headphones. Pt requested Ativan at at 1023 and was reminded that he did not have an order for it. Reminded pt that his PRN was Zyprexa 10 mg and that he had just taken scheduled Zyprexa 10 mg with breakfast. Pt asked if he had [place] available. Asked him where his pain was and he said, "my psyche." Pt decided he did wish to take the PRN Zyprexa anyway along with a nicotine lozenge. Pt voiced feeling angry and agitated at being stuck here though he is trying to control it with reading, radio headphones and naps. Pt vented that "psychology is bullshit...are you hearing voices? Are you seeing things? Yeah, I'm hearing and seeing you!" Pt verbalized that he was misdiagnosed and that with this neurotechnology bullshit it probably happens a lot. Pt stated that he was almost 31 years old and all he ever wanted to do was work. 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 Pt asked this RN if I could print out a philosophy article on [employer] for him to read and it was done. Positive reinforcement provided on pt's ability to utilize coping mechanisms and distraction techniques. Pt stated that he wouldn't have to worry about doing so if he didn't have to be here. Pt has racing, perseverative thoughts and persecutory delusions as well as bizarre and grandiose delusions. Pt asked this nurse if I had a cell phone. Clear boundaries set with the patient that this nurse does not use her cell phone with patients. Pt stated that he was engaged to Janet Castellon, "they hit me with the neurotechnology...her voice. I proposed and she accepted crazy as that sounds." Pt indicated that he was missing her and wished to see her picture. S/I, H/I: Pt denies A/VH: Pt denies though describes hearing Janet Castellon's voice through neuro technology. Sleep: Pt slept 7.75 hours last night per noc shift report. ADL's: Independent Group attendance: No Were meds taken: Yes Any med S/E: None noted or reported. Mental Status Exam Appearance: Tall, thin, pale young man with disheveled light bekah hair dressed in clean green unit scrubs. Eye contact: Good Behavior: Restless and anxious though utilizes distraction techniques and coping skills and is usually able to calm himself. Speech: Clear, normal rate & rhythm, articulate. Mood: Anxious, irritable at times. Affect: Congruent. Thought process: Obsessive, perseverative, delusional; grandiose, bizarre, and persecutory delusions. Thought Content: He misses Janet Castellon his fiance, he has been misdiagnosed and is going to ethan. Cognition: A&O x3 Insight: Poor Judgment: Poor Interventions PRN's used: Nicotine lozenges, Zyprexa 10 mg Therapeutic interventions: 1:1 assessment, therapeutic conversation, active listening, ensured contract for safety, medication administration/education/monitoring, behavior monitoring and intervention as needed; distraction, redirection, attempted reality orientation, positive reinforcement, and Q15 minute safety checks. Restraints/seclusion/emergency medication: None Justification of Continued Inpatient Treatment: Pt continues to perseverate on delusions about neuro technology, reality orientation has been ineffective, he becomes angry that no one believes him. He continues to be gravely disabled and was placed on a TCON today 07/10/21.
[2021-07-11 19:40] VITALS: BP 104/64
[2021-07-11] MEDS: traZODone 50mg tablet PO PRN ×2 (20:07→21:03)
--- NOTE | 2021-07-12 03:43 | NUR ---
Nursing Progress Note: Legal hold: TCON Client on involuntary status for GD/ DTS Report received from JOSE Yoo, with use of SBAR Why they are here: Pt. is a direct admit from [facility]. Per report pt. withdrawing from ETOH after binge drinking for over a year. Pt. reportedly drinking 1 quart of whiskey daily. Pt. 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 He is experiencing AH. Pt. placed on 5150 for GD. Pt. had acute pancreatitis but was medically cleared for transfer. Pt. has been at [facility] since 05/24/21. Assessment What happened this shift: Patient awake in his room at the beginning of shift. Pleasant and cooperative with care; compliant with medication. PRN Nicotine lozenge and patch removed. Repeat Trazodone provided per patient request. Patient denies SI, HI, A/VH; reports delusional content r/t relationship with Janet Castellon. He explained their relationship started two years ago when he was hearing her voice but that he'd never physically been around her. 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 He is observed sleeping and does not appear to be having difficulty. S/I, H/I: Denies A/VH: Denies Sleep: Refer to sleep assessment ADL's: Independent Group attendance: NA Were meds taken: Yes Any med S/E: None observed or reported Mental Status Exam Appearance: Hair unkempt, appropriately dressed in green unit attire Eye contact: Fair Behavior: Pleasant and cooperative, social with staff Speech: Clear, normal rate, rhythm Mood: Depressed Affect: Flat Thought process: Delusional Thought Content: Relationship with Janet Castellon and his website Cognition: A&O x3 Insight: Poor Judgment: Poor Interventions PRN's used: Nicotine lozenges, repeat Trazodone Therapeutic interventions: 1:1 assessment with therapeutic communication, provided PRN as requested, encouraged participation on the unit and in group therapy, provided clear and simple instructions, provided direction and encouragement regarding performance of ADLs, attempted to orient to reality, and monitored Q15 minute safety checks. Restraints/seclusion/emergency medication: NA Justification of Continued Inpatient Treatment: Patient requires interruption of current crisis in a safe and therapeutic environment. [facility]
[2021-07-12] MEDS: thiamine 100mg tablet PO SCH ×2 (07:55→20:18)
[2021-07-12] MEDS: clonazePAM 1mg tablet PO SCH ×2 (07:55→20:18)
[2021-07-12] MEDS: multivitamins, therapeutics tablet PO SCH (07:55)
[2021-07-12] MEDS: folic acid 1mg tablet PO SCH (07:55)
[2021-07-12] MEDS: olanzapine 10mg tablet PO SCH ×2 (07:55→20:17)
[2021-07-12] MEDS: cyanocobalamin 500mcg tablet PO SCH (07:56)
[2021-07-12 08:00] VITALS: BP 116/67
[2021-07-12] MEDS: nicotine 21mg patch - 24 hr TD SCH (08:14)
[2021-07-12] MEDS: NICOTINE POLACRILEX 2 MG LOZENGE BC PRN ×5 (08:21→20:50)
[2021-07-12] MEDS: OLANZAPINE 5 MG TABLET PO PRN (13:37)
--- NOTE | 2021-07-12 13:38 | NUR ---
Pt. reported increased agitation and, stated, "I can't stand being stuck in this God-forsaken s...-hole!" Therapeutic communication and PRN Zyprexa was administered, will continue to monitor.
--- NOTE | 2021-07-12 15:24 | NUR ---
Nursing Progress Note: Legal hold: TCON Client on involuntary status for GD/ DTS Report received from Mimi García, with use of SBAR Why they are here: Pt. is a direct admit from [facility]. Per report pt. withdrawing from ETOH after binge drinking for over a year. Pt. reportedly drinking 1 quart of whiskey daily. Pt. 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 He is experiencing AH. Pt. placed on 5150 for GD. Pt. had acute pancreatitis but was medically cleared for transfer. Pt. has been at [facility] since 05/24/21. Assessment What happened this shift: Pt was up for breakfast and cooperative with medications. Pt spent much of the day listening to the radio headphones sitting in a chair in the rec room gazing out the window. While this RN was at lunch pt had an episode of increased agitation and was medicated by another RN with PRN Zyprexa 10 mg at 1337 with good effect. Per other RN's report pt was asking for HS sleep medications as he just wanted to knock himself out. S/I, H/I: Pt denies A/VH: Pt denies Sleep: Pt slept 6 hours last night per noc shift report. ADL's: Independent Group attendance: No Were meds taken: Yes Any med S/E: None noted or reported. Mental Status Exam Appearance: Tall, thin, pale young man with disheveled light bekah hair dressed in clean green unit scrubs. Eye contact: Good Behavior: Mostly isolative to self today, listened to radio headphones and looked out the window. Speech: Clear, normal rate & rhythm, articulate. Mood: Anxious, agitated Affect: Congruent. Thought process: Internally preoccupied Thought Content: He wants out of this hospital. Cognition: A&O x3 Insight: Poor Judgment: Poor Interventions PRN's used: Nicotine lozenges, Zyprexa 10 mg Therapeutic interventions: 1:1 assessment, therapeutic conversation, active listening, ensured contract for safety, medication administration/education/monitoring, behavior monitoring and intervention as needed; distraction, redirection, attempted reality orientation, verbal de-escalation, positive reinforcement, and Q15 minute safety checks. Restraints/seclusion/emergency medication: None Justification of Continued Inpatient Treatment: Pt continues to perseverate on delusions about neuro technology, reality orientation has been ineffective, he becomes angry that no one believes him. He continues to be gravely disabled and was placed on a TCON on 07/10/21.
[2021-07-12 19:25] VITALS: BP 115/57
[2021-07-12] MEDS: traZODone 50mg tablet PO PRN (20:18)
--- NOTE | 2021-07-12 23:55 | NUR ---
Nursing Progress Note Legal hold: T-CON Report received from [place] straightening roll operator Why they are here: Pt. is a direct admit from [facility]. Per report pt. withdrawing from ETOH after binge drinking for over a year. Pt. reportedly drinking 1 quart of whiskey daily. Pt. 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 He is experiencing AH. Pt. placed on 5150 for GD. Pt. had acute pancreatitis but was medically cleared for transfer. Pt. has been at [facility] since 05/24/21. Assessment What has happened this shift: The patient was up on the unit and and spent time in the patient dining room on the exercise bike. He appears to be thin and tall. He was disheveled with his hair greasy and uncombed. One to one with the patient to assess severity of thought disorder. He was friendly and calm when approached for the evening assessment. He reports he has not had a shower for several days. He did state his appetitewas good and that his mood was good. Although he was compliant with medication he denies mental health problems. 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 He denies thoughts of wanting to harm himself or others. He denies having auditory or visual hallucinations. He refused to have his nicotine patch removed at . Side effects go medications were denied. He has not had any episodes of agitated behaviors or behaviors that have required redirection from staff. Justification of Continued Inpatient Treatment: The patient's insight and judgement remain limited and if he were to be discharged he would not continue with treatment. He does not have a realistic plan for food, custodial or clothing. He has been served with a T-CON and an appropriate level of care is being sought. The patient will remain on the unit until placed.
[2021-07-13] MEDS: NICOTINE POLACRILEX 2 MG LOZENGE BC PRN ×6 (06:39→19:58)
[2021-07-13 07:33] VITALS: BP 116/73
[2021-07-13] MEDS: clonazePAM 1mg tablet PO SCH ×2 (07:34→19:59)
[2021-07-13] MEDS: folic acid 1mg tablet PO SCH (07:34)
[2021-07-13] MEDS: nicotine 21mg patch - 24 hr TD SCH (07:35)
[2021-07-13] MEDS: multivitamins, therapeutics tablet PO SCH (07:35)
[2021-07-13] MEDS: thiamine 100mg tablet PO SCH ×2 (07:35→19:58)
[2021-07-13] MEDS: olanzapine 10mg tablet PO SCH ×2 (07:35→19:58)
[2021-07-13] MEDS: cyanocobalamin 500mcg tablet PO SCH (07:35)
[2021-07-13] MEDS: magnesium hydroxide 30ml (MOM) UD suspension PO PRN (11:28)
[2021-07-13] MEDS: OLANZAPINE 5 MG TABLET PO PRN (13:35)
--- NOTE | 2021-07-13 17:24 | NUR ---
Nursing Progress Note Legal hold: T-CON Report received from SHARIF Overton, with use of SBAR. Why they are here: Pt. is a direct admit from [facility]. Per report pt. withdrawing from ETOH after binge drinking for over a year. Pt. reportedly drinking 1 quart of whiskey daily. Pt. 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 He is experiencing AH. Pt. placed on 5150 for GD. Pt. had acute pancreatitis but was medically cleared for transfer. Pt. has been at [facility] since 05/24/21. Assessment What has happened this shift: Received patient while he was still sleeping. Patient woke up at approximately 0700 and requested a cup of iced coffee. Patient drank his coffee in the TV Room in front of the window sitting in a chair watching the sunrise. Patient is calm and requesting Nicotine Lozenges approximately every 2 hours. Patient went to the Community Room to eat his breakfast. Patient usually sits alone in the Community Room, which is what he did today, eating his breakfast. Patient approached me after breakfast stating I want you to request my strawberry milkshake. Patient stated I dont know why they havent been bringing them. Informed patient that I had requested his shakes for his last Wednesday & Wednesday. Asked patient how long they had not been sending the strawberry milkshakes. Patient responded I never got them at all since you were here last. Informed the patient that I would try to get to the bottom of what was going on, and then get back to him. TC placed to Braulio in Dietary, and informed him that patient had not been receiving his strawberry shakes for the past week. Braulio states Well, that is because we stopped the shakes coming to him since last week. Informed Braulio that I had sent faxes x3 last week on Wednesday & Wednesday, but had never received a TC in return to tell me that they had cancelled the order. Informed Braulio that is something that is important for me to know. Braulio then stated Well we just cant keep sending them. He needs to give up the double portions on his meat or on his double vegetables. Informed Braulio that I would need to speak to the Provider as well as the patient once again before I could get back to him on the Provider & Patients decision. Informed the patient what Braulio had said and patient was understandably about reducing his options. Informed the patient I would speak with his Provider in the morning, and I would call Braulio back at that time. Will speak with Dr. Del Toro and discuss options in the morning. Patients weight was 76.5 kg today. Patient reported his LBM was 07/10/21. Dose of MOM given to patient this morning. Patient states he will inform me when he does have a BM. Patient rode on the [email or web address] Bike in the Community Room for approximately 45 minutes this morning. S/I, H/I: Pt denies A/VH: Pt denies Sleep: 8.0 hours of sleep. ADL's: Independent Group attendance: No Group Meeting Held Today. Were meds taken: Yes, without hesitation. Any med S/E: None noted or reported. Mental Status Exam Appearance: Tall, thin, pale young man with disheveled light bekah hair dressed in clean green unit scrubs. Eye contact: Good Behavior: Self-Isolates for approximately 2 hours in the morning and 2 hours this afternoon. Listened to Headphones. Rode Stationary Bike. Speech: Clear, normal rate & rhythm, articulate. Mood: Calm & Polite. Affect: Congruent Thought process: Internally preoccupied Thought Content: Meeting own needs. Cognition: A&O x4 Insight: Poor Judgment: Poor Interventions PRN's used: Nicotine lozenges, Zyprexa 10 mg Therapeutic interventions: 1:1 assessment, therapeutic conversation, active listening, ensured contract for safety, medication administration/education/monitoring, behavior monitoring and intervention as needed; distraction, redirection, attempted reality orientation, verbal de-escalation, positive reinforcement, and Q15 minute safety checks. Restraints/seclusion/emergency medication: None Justification of Continued Inpatient Treatment: Pt continues to perseverate on delusions about neuro technology, reality orientation has been ineffective, he becomes angry that no one believes him. He continues to be gravely disabled and was placed on a TCON on 07/10/21.
[2021-07-13 19:50] VITALS: BP 103/58
[2021-07-13] MEDS: traZODone 50mg tablet PO PRN (19:58)
[2021-07-14] MEDS: NICOTINE POLACRILEX 2 MG LOZENGE BC PRN ×8 (01:49→22:40)
--- NOTE | 2021-07-14 04:22 | NUR ---
Nursing Progress Note: Legal hold: TCON Client on involuntary status for GD/ DTS Report received from JOSE Lay, with use of SBAR Why they are here: Pt. is a direct admit from [facility]. Per report pt. withdrawing from ETOH after binge drinking for over a year. Pt. reportedly drinking 1 quart of whiskey daily. Pt. 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 He is experiencing AH. Pt. placed on 5150 for GD. Pt. had acute pancreatitis but was medically cleared for transfer. Pt. has been at [facility] since 05/24/21. Assessment What happened this shift: Patient awake in his room at the beginning of shift. Pleasant and cooperative with care; compliant with medication. PRN Nicotine lozenge provided and patch removed. Patient denies SI, HI, A/VH. Patient wanted to shower this shift but clean scrubs were not available and decided to wait. He is observed sleeping and does not appear to be having difficulty. S/I, H/I: Denies A/VH: Denies Sleep: Refer to sleep assessment ADL's: Independent Group attendance: NA Were meds taken: Yes Any med S/E: None observed or reported Mental Status Exam Appearance: Hair unkempt, appropriately dressed in green unit attire Eye contact: Fair Behavior: Pleasant and cooperative, self-isolative Speech: Clear, normal rate, rhythm Mood: Depressed Affect: Flat Thought process: Linear with fixed delusions Thought Content: Meeting needs Cognition: A&O x3 Insight: Poor Judgment: Poor Interventions PRN's used: Nicotine lozenges Therapeutic interventions: 1:1 assessment with therapeutic communication, provided PRN as requested, encouraged participation on the unit and in group therapy, provided clear and simple instructions, provided direction and encouragement regarding performance of ADLs, attempted to orient to reality, and monitored Q15 minute safety checks. Restraints/seclusion/emergency medication: NA Justification of Continued Inpatient Treatment: Patient requires interruption of current crisis in a safe and therapeutic environment. Pursuing [facility] Conservatorship with [facility].
[2021-07-14 07:47] VITALS: BP 107/67
[2021-07-14] MEDS: nicotine 21mg patch - 24 hr TD SCH (08:08)
[2021-07-14] MEDS: folic acid 1mg tablet PO SCH (08:08)
[2021-07-14] MEDS: multivitamins, therapeutics tablet PO SCH (08:09)
[2021-07-14] MEDS: thiamine 100mg tablet PO SCH ×2 (08:09→20:28)
[2021-07-14] MEDS: cyanocobalamin 500mcg tablet PO SCH (08:09)
[2021-07-14] MEDS: clonazePAM 1mg tablet PO SCH ×2 (08:09→20:28)
[2021-07-14] MEDS: olanzapine 10mg tablet PO SCH ×2 (08:09→20:28)
[2021-07-14] MEDS: OLANZAPINE 5 MG TABLET PO PRN (12:50)
--- NOTE | 2021-07-14 14:39 | NUR ---
Sent updated notes to [facility] (06/11/21-07/13/21). JOSE Johnson
--- NOTE | 2021-07-14 17:08 | NUR ---
Nursing Progress Note Legal hold: T-CON Report received from SHARIF Tolentino, with use of SBAR. Why they are here: Pt. is a direct admit from [facility]. Per report pt. withdrawing from ETOH after binge drinking for over a year. Pt. reportedly drinking 1 quart of whiskey daily. Pt. 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 He is experiencing AH. Pt. placed on 5150 for GD. Pt. had acute pancreatitis but was medically cleared for transfer. Pt. has been at [facility] since 05/24/21. Assessment What has happened this shift: Received patient while he was awake in the hallway requesting a Nicotine Lozenge and H20. Patient states I slept well last night. Patient went to the Community Room to have breakfast at approximately 0800. After breakfast, patient returned to bed to rest. Patient was back up out of bed in the hallway at approximately 1130, requesting a Nicotine Lozenge. Patient ate lunch in the Community Room and returned back to bed until 1630 when he requested a Nicotine Lozenge. S/I, H/I: Pt denies A/VH: Pt denies Sleep: 8.0 hours of sleep. ADL's: Independent Group attendance: No Group Meeting Held Today. Were meds taken: Yes, without hesitation. Any med S/E: None noted or reported. Mental Status Exam Appearance: Tall, thin, pale young man with disheveled light bekah hair dressed in clean green unit scrubs. Eye contact: Good Behavior: Self-Isolates for approximately 3 hours in the morning and 4 hours this afternoon. Listened to Headphones. Speech: Clear, normal rate & rhythm, articulate. Mood: Calm & Polite. Affect: Congruent Thought process: Internally preoccupied Thought Content: Meeting own needs. Cognition: A&O x4 Insight: Poor Judgment: Poor Interventions PRN's used: Nicotine lozenges, Zyprexa 10 mg Therapeutic interventions: 1:1 assessment, therapeutic conversation, active listening, ensured contract for safety, medication administration/education/monitoring, behavior monitoring and intervention as needed; distraction, redirection, attempted reality orientation, verbal de-escalation, positive reinforcement, and Q15 minute safety checks. Restraints/seclusion/emergency medication: None Justification of Continued Inpatient Treatment: Pt continues to perseverate on delusions about neuro technology, reality orientation has been ineffective, he becomes angry that no one believes him. He continues to be gravely disabled and was placed on a TCON on 07/10/21.
[2021-07-14 19:47] VITALS: BP 123/69
[2021-07-14] MEDS: traZODone 50mg tablet PO PRN (20:28)
--- NOTE | 2021-07-15 04:10 | NUR ---
Nursing Progress Note: Legal hold: TCON Client on involuntary status for GD/ DTS Report received from JOSE Garcia, with use of SBAR Why they are here: Pt. is a direct admit from [facility]. Per report pt. withdrawing from ETOH after binge drinking for over a year. Pt. reportedly drinking 1 quart of whiskey daily. Pt. 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 He is experiencing AH. Pt. placed on 5150 for GD. Pt. had acute pancreatitis but was medically cleared for transfer. Pt. has been at [facility] since 05/24/21. Assessment What happened this shift: Patient using exercise machine and watching TV at the beginning of shift. Pleasant and cooperative with care; compliant with medication. PRN Nicotine lozenge provided and patch removed. Patient denies SI, HI, A/VH. Patient observed sleeping and does not appear to be having difficulty. S/I, H/I: Denies A/VH: Denies Sleep: Refer to sleep assessment ADL's: Independent Group attendance: NA Were meds taken: Yes Any med S/E: None observed or reported Mental Status Exam Appearance: Hair unkempt, appropriately dressed in green unit attire Eye contact: Fair Behavior: Pleasant and cooperative, self-isolative, exercising Speech: Clear, normal rate, rhythm Mood: Depressed Affect: Flat Thought process: Linear with fixed delusions Thought Content: Meeting needs Cognition: A&O x3 Insight: Poor Judgment: Poor Interventions PRN's used: Nicotine lozenges Therapeutic interventions: 1:1 assessment with therapeutic communication, provided PRN as requested, encouraged participation on the unit and in group therapy, provided clear and simple instructions, provided direction and encouragement regarding performance of ADLs, attempted to orient to reality, and monitored Q15 minute safety checks. Restraints/seclusion/emergency medication: NA Justification of Continued Inpatient Treatment: Patient requires interruption of current crisis in a safe and therapeutic environment. Pursuing [facility] Conservatorship with [facility].
[2021-07-15] MEDS: cyanocobalamin 500mcg tablet PO SCH (07:24)
[2021-07-15] MEDS: folic acid 1mg tablet PO SCH (07:24)
[2021-07-15] MEDS: olanzapine 10mg tablet PO SCH ×2 (07:24→19:57)
[2021-07-15] MEDS: clonazePAM 1mg tablet PO SCH ×2 (07:24→19:57)
[2021-07-15] MEDS: multivitamins, therapeutics tablet PO SCH (07:24)
[2021-07-15] MEDS: thiamine 100mg tablet PO SCH ×2 (07:24→19:56)
[2021-07-15] MEDS: NICOTINE POLACRILEX 2 MG LOZENGE BC PRN ×4 (07:25→19:05)
[2021-07-15] MEDS: nicotine 21mg patch - 24 hr TD SCH (07:29)
[2021-07-15 07:49] VITALS: BP 127/59
--- NOTE | 2021-07-15 14:17 | NUR ---
Nursing Progress Note Legal hold: T-Con Client on involuntary status for GD Report received RN with use of SBAR Why they are here: Pt. is a direct admit from [facility]. Per report pt. withdrawing from ETOH after binge drinking for over a year. Pt. reportedly drinking 1 quart of whiskey daily. Pt. 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 He is experiencing AH. Pt. placed on 5150 for GD. Pt. had acute pancreatitis but was medically cleared for transfer. Pt. has been at [facility] since 05/24/21. Assessment What happened this shift: Received Pt in bed sleeping w/o distress at the beginning of the shift. Pt woke and was cooperative with vitals and returned to bed. Pt asked for a nicotine lozenge and listened to music in his bed for most of the morning. Pt also avoided hallway in AM due to verbally aggressive Pt. Pt wanted details about hearings and trying to think of ways to fight conservatorship. Pt less vocal about his thoughts, seemingly trying to expose his fixed delusions r/t alvaro tech and govnt control. Pt asks for nicotine lozenges with regularity and is otherwise isolative and quiet today. S/I, H/I: Denies A/VH: + Delusions Sleep: None noted this shift, rested in AM ADL's: Independent Group attendance: NA Were Meds taken: Yes Any med S/E: None reported or noted Mental Status Exam Appearance: Disheveled in scrubs Eye contact: Good Behavior: Cooperative, isolative Speech: Clear, coherent Mood: Good Affect: Constricted Thought process: Disorganized at times Thought Content: hearings Cognition: A&O x2 to person and place Insight: Poor Judgment: Poor Interventions PRN's used: Nicotine lozenges Therapeutic interventions: 1:1 assessment with therapeutic communication, provided PRN as requested, encouraged patience to stay in the hospital until seen by a provider, provided clear and simple instructions, provided direction and encouragement regarding performance of ADLs, and monitored Q15 minute safety checks. Restraints/seclusion/emergency medication: NA Justification of Continued Inpatient Treatment: Patient requires interruption of current crisis in a safe and therapeutic environment. Parents will not allow pt to live with them due to degree of mental illness, [facility] is pursuing [facility].
[2021-07-15 19:35] VITALS: BP 127/88
[2021-07-15] MEDS: traZODone 50mg tablet PO PRN (19:57)
--- NOTE | 2021-07-16 05:00 | NUR ---
Nursing Progress Note: Legal hold: TCON Client on involuntary status for GD/ DTS Report received from JOSE Lay, with use of SBAR Why they are here: Pt. is a direct admit from [facility]. Per report pt. withdrawing from ETOH after binge drinking for over a year. Pt. reportedly drinking 1 quart of whiskey daily. Pt. 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 He is experiencing AH. Pt. placed on 5150 for GD. Pt. had acute pancreatitis but was medically cleared for transfer. Pt. has been at [facility] since 05/24/21. Assessment What happened this shift: Patient listening to music in his room at the beginning of shift. Pleasant and cooperative with care; compliant with medication. PRN Nicotine lozenge provided and patch removed. Patient denies SI, HI, A/VH; no delusional thought content expressed this shift. He did not participate in HS snack this shift; observed sleeping and does not appear to be having difficulty. S/I, H/I: Denies A/VH: Denies Sleep: Refer to sleep assessment ADL's: Independent Group attendance: NA Were meds taken: Yes Any med S/E: None observed or reported Mental Status Exam Appearance: Hair unkempt, appropriately dressed in green unit attire Eye contact: Fair Behavior: Pleasant and cooperative, self-isolative Speech: Clear, normal rate, rhythm Mood: Depressed, bored Affect: Flat Thought process: Linear, possible fixed delusions (none reported this shift) Thought Content: Meeting needs, discharge Cognition: A&O x3 Insight: Poor Judgment: Poor Interventions PRN's used: Nicotine lozenges Therapeutic interventions: 1:1 assessment with therapeutic communication, provided PRN as requested, encouraged participation on the unit and in group therapy, provided clear and simple instructions, provided direction and encouragement regarding performance of ADLs, attempted to orient to reality, and monitored Q15 minute safety checks. Restraints/seclusion/emergency medication: NA Justification of Continued Inpatient Treatment: Patient requires interruption of current crisis in a safe and therapeutic environment. Pursuing [facility] Conservatorship with [facility].
[2021-07-16 07:38] VITALS: BP 109/68
[2021-07-16] MEDS: folic acid 1mg tablet PO SCH (07:42)
[2021-07-16] MEDS: cyanocobalamin 500mcg tablet PO SCH (07:42)
[2021-07-16] MEDS: clonazePAM 1mg tablet PO SCH ×2 (07:42→20:07)
[2021-07-16] MEDS: olanzapine 10mg tablet PO SCH ×2 (07:42→20:06)
[2021-07-16] MEDS: multivitamins, therapeutics tablet PO SCH (07:42)
[2021-07-16] MEDS: thiamine 100mg tablet PO SCH ×2 (07:42→20:07)
[2021-07-16] MEDS: nicotine 21mg patch - 24 hr TD SCH (07:44)
[2021-07-16] MEDS: NICOTINE POLACRILEX 2 MG LOZENGE BC PRN ×3 (08:15→15:39)
[2021-07-16] MEDS: magnesium hydroxide 30ml (MOM) UD suspension PO PRN (10:01)
[2021-07-16] MEDS: OLANZAPINE 5 MG TABLET PO PRN (13:15)
--- NOTE | 2021-07-16 16:51 | NUR ---
Nursing Progress Note: Jose Alejandro Legal hold: T-Con Client on involuntary status for GD Report received JOSE Barragan with use of SBAR Why they are here: Pt. is a direct admit from [facility]. Per report pt. withdrawing from ETOH after binge drinking for over a year. Pt. reportedly drinking 1 quart of whiskey daily. Pt. 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 He is experiencing AH. Pt. placed on 5150 for GD. Pt. had acute pancreatitis but was medically cleared for transfer. Pt. has been at [facility] since 05/24/21. Assessment What happened this shift: Patient received sleeping in his room at shift change with no s/s of distress. He awoke and approached this grant writer asking for a Nicotine lozenge. Patient participated in the community room with peers for breakfast. He retreated back to his room after breakfast and was complaint with scheduled medication and 1:1 assessment. Patient was observed isolating to his room, listening to music through headphones. Patient denies SI/HI, AH or VH. Does not appear to be responding to internal stimuli. Patient remained quiet, guarded and reserved throughout the day. He did not participate in group therapy today despite encouragement. He approached this grant writer endorsing that he just wants to sleep and doesnt want to be here. Patient given PRN Zyprexa at 1315 per his request and retreated back to his room. Unable to determine delusions as patient is unwilling to engage in conversation. Pt continues asking for nicotine lozenges with regularity and is otherwise isolative and quiet today. He joined for all meals and snack times in the community room with peers. S/I, H/I: Denies A/VH: Denies. Does not appear to be responding to IS. Sleep: Pt slept 8.75 hours last night per NOC shift. Napped intermittently today. ADL's: Independent Group attendance: No Were Meds taken: Yes Any med S/E: None reported or noted Mental Status Exam Appearance: Disheveled male with scruffy browne wearing green unit scrubs Eye contact: Good Behavior: Cooperative, isolative Speech: Clear, coherent Mood: Appears depressed Affect: Constricted Thought process: Disorganized at times Thought Content: Meeting needs. Just wants to sleep and doesnt want to be here. Cognition: A&O x2 to person and place Insight: Poor Judgment: Poor Interventions PRN's used: Nicotine lozenges, Zyprexa Therapeutic interventions: 1:1 assessment with therapeutic communication, provided PRN as requested, provided clear and simple instructions, provided direction and encouragement regarding performance of ADLs, and monitored Q15 minute safety checks. Restraints/seclusion/emergency medication: NA Justification of Continued Inpatient Treatment: Patient requires interruption of current crisis in a safe and therapeutic environment. Parents will not allow pt to live with them due to degree of mental illness, [facility] is pursuing conservatorship.
[2021-07-16 19:11] VITALS: BP 106/63
[2021-07-16] MEDS: traZODone 50mg tablet PO PRN (20:06)
--- NOTE | 2021-07-16 21:41 | NUR ---
Nursing Progress Note: Jose Alejandro Legal hold: T-Con Client on involuntary status for GD Report received JOSE Lay with use of SBAR Why they are here: Pt. is a direct admit from [facility]. Per report pt. withdrawing from ETOH after binge drinking for over a year. Pt. reportedly drinking 1 quart of whiskey daily. Pt. 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 He is experiencing AH. Pt. placed on 5150 for GD. Pt. had acute pancreatitis but was medically cleared for transfer. Pt. has been at [facility] since 05/24/21. Assessment What happened this shift: Pt was in his room at change of shift. He spent time during the evening in the Rec Room stating he was watching the rain and could smell the rain through the window. Pt requested prn nicotine lozenge and states "I would like my medicine early if I can, I'm ready when you are." Pt watched tv in the group room briefly. Pt went to bed after taking HS meds. S/I, H/I: Denies A/VH: Denies. Does not appear to be responding to IS. Sleep: see sleep hours ADL's: Independent Group attendance: No Were Meds taken: Yes Any med S/E: None reported or noted Mental Status Exam Appearance: Disheveled male with scruffy browne wearing green unit scrubs Eye contact: Good Behavior: Cooperative, isolative Speech: Clear, coherent Mood: Appears depressed Affect: Constricted Thought process: Disorganized at times Thought Content: Meeting needs. Just wants to sleep and doesnt want to be here. Talking about the rain Cognition: A&O x2 to person and place Insight: Poor Judgment: Poor Interventions PRN's used: Nicotine lozenges, trazodone Therapeutic interventions: 1:1 assessment with therapeutic communication, provided PRN as requested, provided clear and simple instructions, provided direction and encouragement regarding performance of ADLs, and monitored Q15 minute safety checks. Restraints/seclusion/emergency medication: NA Justification of Continued Inpatient Treatment: Patient requires interruption of current crisis in a safe and therapeutic environment. Parents will not allow pt to live with them due to degree of mental illness, [facility] is pursuing conservatorship. Addendum: 07/16/21 at 2150 by Meredith Guadalupe RN pt states he didnt have a nicotine patch today
--- NOTE | 2021-07-17 07:09 | NUR ---
Reassessment: Pt continues eating well with mostly 100% PO intake while receiving double protein TID, double veggies BIDLD, Per slurry plant operator pt participating in snacks. Recommend discontinuing double protein TID as pt exceeding estimated energy and protein needs for IBW by greater than 150% with just PO intake of meals alone. Pt +14 kg since admit two months ago. LBM 07/15. Will continue to follow. Recommendations: 1. Continue regular diet with double protein TID per diet order 2. Double vegetables BIDLD for satiety; consider discontinuing given pt exceeding estimated nutrient needs 3. Continue routine Thiamine, Folic acid, and MVI given EtOH hx 4. Bowel care per rx 5. Weekly scaled wts Addendum: 07/17/21 at [address] Amended: Links added.
[2021-07-17] MEDS: thiamine 100mg tablet PO SCH ×2 (07:55→19:45)
[2021-07-17] MEDS: multivitamins, therapeutics tablet PO SCH (07:55)
[2021-07-17] MEDS: clonazePAM 1mg tablet PO SCH ×2 (07:55→19:45)
[2021-07-17] MEDS: olanzapine 10mg tablet PO SCH ×2 (07:55→19:45)
[2021-07-17] MEDS: cyanocobalamin 500mcg tablet PO SCH (07:55)
[2021-07-17] MEDS: folic acid 1mg tablet PO SCH (07:55)
[2021-07-17] MEDS: nicotine 21mg patch - 24 hr TD SCH (07:56)
[2021-07-17 07:58] VITALS: BP 113/62
[2021-07-17] MEDS: NICOTINE POLACRILEX 2 MG LOZENGE BC PRN ×7 (08:29→21:05)
--- NOTE | 2021-07-17 16:02 | NUR ---
Nursing Progress Note: Jose Alejandro Legal hold: T-Con Client on involuntary status for GD Report received Laurel RN with use of SBAR Why they are here: Pt. is a direct admit from [facility]. Per report pt. withdrawing from ETOH after binge drinking for over a year. Pt. reportedly drinking 1 quart of whiskey daily. Pt. 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 He is experiencing AH. Pt. placed on 5150 for GD. Pt. had acute pancreatitis but was medically cleared for transfer. Pt. has been at [facility] since 05/24/21. Assessment What happened this shift: Patient received walking around the unit at change of shift. He was receptive to scheduled medication and 1:1 assessment. He declined his scheduled Nicotine Patch endorsing that he is trying to get off of it. He joined for breakfast in the community room with peers. He was observed having minimal conversation with another peer on the unit before retreating back to his room. Patient continues to present as isolative to his room, guarded, and seemingly depressed. He denies SI/HI, AH or VH. Does not appear to be responding to internal stimuli. Unable to determine delusions as patient is unwilling to engage in conversation. Patient noted asking if he could leave before his next court hearing. Patient endorsing that he wants to get out of here. He was observed listening to music through headphones and isolating to his room throughout the shift. Pt continues asking for nicotine lozenges with regularity and is otherwise isolative and quiet. He joined for all meals and snack times in the community room with peers. S/I, H/I: Denies A/VH: Denies. Does not appear to be responding to IS. Sleep: Refer to sleep hours. Patient napped intermittently today. ADL's: Independent Group attendance: No Were Meds taken: Yes Any med S/E: None reported or noted Mental Status Exam Appearance: Medium height, disheveled male with scruffy browne. Wearing green unit scrubs. Eye contact: Good Behavior: Cooperative, isolative Speech: Clear, coherent Mood: Appears depressed Affect: Constricted Thought process: Disorganized at times Thought Content: Meeting needs. Wants to get out of here. Cognition: A&O x2 to person and place Insight: Poor Judgment: Poor Interventions PRN's used: Nicotine lozenges Therapeutic interventions: 1:1 assessment with therapeutic communication, provided PRNs as requested, provided clear and simple instructions, provided direction and encouragement regarding performance of ADLs, and monitored Q15 minute safety checks. Restraints/seclusion/emergency medication: NA Justification of Continued Inpatient Treatment: Patient requires interruption of current crisis in a safe and therapeutic environment. Parents will not allow pt to live with them due to degree of mental illness, [facility] is pursuing conservatorship.
[2021-07-17] MEDS: traZODone 50mg tablet PO PRN ×2 (19:45→21:32)
[2021-07-17 20:00] VITALS: BP 115/60
--- NOTE | 2021-07-18 02:41 | NUR ---
Nursing Progress Note: Jose Alejandro Legal hold: T-Con Client on involuntary status for GD Report received Fredo GARCIA with use of SBAR Why they are here: Pt. is a direct admit from [facility]. Per report pt. withdrawing from ETOH after binge drinking for over a year. Pt. reportedly drinking 1 quart of whiskey daily. Pt. 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 He is experiencing AH. Pt. placed on 5150 for GD. Pt. had acute pancreatitis but was medically cleared for transfer. Pt. has been at [facility] since 05/24/21. Assessment What happened this shift: Patient received with headphones on pacing the unit. Pt states his depression and anxiety come and go but he is able to distract himself with listening to music, pacing and writing and reading. Pt calm and cooperative with care and is friendly towards staff and peers. Pt denies SI/HI and A/VH at this time. Pt requested nicotine lozenges throughout the shift. Pt up for snacks and took all HS medications without issues. NO NICOTINE PATCH TO BE REMOVED Pt declined nicotine patch this morning stating he is trying to quit nicotine all together. Provider starting pt on Clozaril 25MG and tapering Zyprexa. CBC lab order due on 07/18. S/I, H/I: Denies A/VH: Denies. Does not appear to be responding to IS. Sleep: ADL's: Independent Group attendance: No Were Meds taken: Yes Any med S/E: None reported or noted Mental Status Exam Appearance: Medium height, disheveled male with scruffy browne. Wearing green unit scrubs. Eye contact: Good Behavior: Cooperative, isolative Speech: Clear, coherent Mood: Appears depressed Affect: Constricted Thought process: Disorganized at times Thought Content: Meeting needs. Wants to get out of here. Cognition: A&O x2 to person and place Insight: Poor Judgment: Poor Interventions PRN's used: Nicotine lozenges, trazadone Therapeutic interventions: 1:1 assessment with therapeutic communication, provided PRNs as requested, provided clear and simple instructions, provided direction and encouragement regarding performance of ADLs, and monitored Q15 minute safety checks. Restraints/seclusion/emergency medication: NA Justification of Continued Inpatient Treatment: Patient requires interruption of current crisis in a safe and therapeutic environment. Parents will not allow pt to live with them due to degree of mental illness, [facility] is pursuing conservatorship.
[2021-07-18] MEDS: NICOTINE POLACRILEX 2 MG LOZENGE BC PRN ×7 (03:28→20:14)
--- NOTE | 2021-07-18 03:28 | NUR ---
Patient awoke, requested nicotine lozenge. It was administered. Primary RN is on break.
[2021-07-18 07:21] VITALS: BP 114/60
[2021-07-18] MEDS: multivitamins, therapeutics tablet PO SCH (07:41)
[2021-07-18] MEDS: clonazePAM 1mg tablet PO SCH ×2 (07:41→20:10)
[2021-07-18] MEDS: olanzapine 10mg tablet PO SCH ×2 (07:41→20:10)
[2021-07-18] MEDS: thiamine 100mg tablet PO SCH ×2 (07:41→20:09)
[2021-07-18] MEDS: cyanocobalamin 500mcg tablet PO SCH (07:41)
[2021-07-18] MEDS: folic acid 1mg tablet PO SCH (07:41)
[2021-07-18] MEDS: nicotine 21mg patch - 24 hr TD SCH (07:42)
[2021-07-18 09:28] LABS: BASOPHILS # (AUTO) 0.1 X10'3 (0-0.2); BASOPHILS % (AUTO) 1.1 % (0-1); EOSINOPHILS # (AUTO) 0.2 X10'3 (0-0.9); EOSINOPHILS % (AUTO) 2.9 % (0-6); HEMATOCRIT 36.6 % (42.0-52.0); HEMOGLOBIN 12.4 g/dl (14.0-17.9); LYMPHOCYTES # (AUTO) 1.5 X10'3 (1.1-4.8); LYMPHOCYTES % (AUTO) 26.4 % (21-51); MEAN CORPUSCULAR VOLUME 97.1 FL (78-98); MEAN PLATELET VOLUME 7.1 FL (7.4-10.4); MONOCYTES # (AUTO) 0.4 X10'3 (0-0.9); MONOCYTES % (AUTO) 6.3 % (2-12); NEUTROPHILS # (AUTO) 3.6 X10'3 (1.8-7.7); NEUTROPHILS % (AUTO) 63.3 % (42-75); PLATELET COUNT 265 X10'3 (140-440); RED BLOOD COUNT 3.77 X10'6 (4.70-6.10); RED CELL DISTRIBUTION WIDTH 12.3 % (11.5-14.5); WHITE BLOOD COUNT 5.7 X10'3 (4.5-11.0)
--- NOTE | 2021-07-18 16:32 | NUR ---
Nursing Progress Note: Jose Alejandro Legal hold: T-Con Client on involuntary status for GD Report received Mimi García RN with use of SBAR Why they are here: Pt. is a direct admit from [facility]. Per report pt. withdrawing from ETOH after binge drinking for over a year. Pt. reportedly drinking 1 quart of whiskey daily. Pt. 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 He is experiencing AH. Pt. placed on 5150 for GD. Pt. had acute pancreatitis but was medically cleared for transfer. Pt. has been at [facility] since 05/24/21. Assessment What happened this shift: Patient received sleeping in his room at shift change. He awoke and approached this movie writer asking for a PRN Nicotine lozenge. Patient endorsed that he slept really well last night. He took his scheduled medication without hesitancy and was receptive to 1:1 assessment. Patient declined his nicotine patch this morning endorsing that he doesnt want to discontinue the order, however, is trying to get off of Nicotine. He joined with peers in the community room for breakfast. Patient observed sitting in the recreation room looking out the window, enjoying the view this morning while listening to music through headphones. He retreated to his room shortly after and was noted taking a nap. Patient continues to present as isolative to his room, guarded, and seemingly depressed. He is polite and pleasant upon interaction noted smiling briefly while talking with this movie writer. Patient denies SI/HI, AH or VH. Does not appear to be responding to internal stimuli. Unable to determine delusions as patient is not expressing delusions to staff. Pt continues asking for nicotine lozenges with regularity and is otherwise isolative and quiet. He endorsed to this movie writer that he is doing well and in good spirits. Patient joined for all meals and snack times in the community room with peers. S/I, H/I: Denies A/VH: Denies. Does not appear to be responding to IS. Sleep: Pt slept 6.5 hours last night per NOC shift. Napped intermittently today. ADL's: Independent Group attendance: No Were Meds taken: Yes Any med S/E: None reported or noted Mental Status Exam Appearance: Medium height, disheveled male with scruffy browne. Wearing green unit scrubs. Eye contact: Good, WNL Behavior: Cooperative, isolative, polite, pleasant Speech: Clear, coherent, WNL Mood: Appears depressed Affect: Constricted Thought process: Disorganized at times, otherwise, linear Thought Content: Meeting needs Cognition: A&O x2 to person and place Insight: Poor Judgment: Poor Interventions PRN's used: Nicotine lozenges Therapeutic interventions: 1:1 assessment with therapeutic communication, provided PRNs as requested, provided clear and simple instructions, provided direction and encouragement regarding performance of ADLs, and monitored Q15 minute safety checks. Restraints/seclusion/emergency medication: NA Justification of Continued Inpatient Treatment: Patient requires interruption of current crisis in a safe and therapeutic environment. Parents will not allow pt to live with them due to degree of mental illness, [facility] is pursuing conservatorship.
[2021-07-18 20:00] VITALS: BP 106/61
[2021-07-18] MEDS: traZODone 50mg tablet PO PRN (20:09)
[2021-07-18] MEDS ORDERED: clozapine 25mg tablet PO SCH (21:00)
[2021-07-18] MEDS ORDERED: CLOZARIL PO SCH (21:00)
--- NOTE | 2021-07-18 22:30 | NUR ---
Nursing Progress Note: Legal hold: T-Con Client on involuntary status for GD Report received JOSE Yoo with use of SBAR Why they are here: Pt. is a direct admit from [facility]. Per report pt. withdrawing from ETOH after binge drinking for over a year. Pt. reportedly drinking 1 quart of whiskey daily. Pt. 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 He is experiencing AH. Pt. placed on 5150 for GD. Pt. had acute pancreatitis but was medically cleared for transfer. Pt. has been at [facility] since 05/24/21. Assessment What happened this shift: Patient was out of his room a couple of times following shift change. He exited once to request early medications. The second time to request a nicotine lozenge. The patient is oriented to person and place. He is cooperative. The patient tells this verse writer that he still wants to have his prn nicotine lozenges. The patients thought process is becoming more organized. He is focused on listening to music and discharge. He did not endorse any paranoia this shift. He denies H/I, S/I, or any hallucinations. The patient is cooperative and medication compliant. ADL's are within normal limits. The patient is somewhat disheveled looking. He makes good eye contact. His speech is soft and clear. Patients affect is constricted. He continues to self isolate in his room. Mental Status Exam Interventions PRN's used: Nicotine lozenge. Therapeutic interventions: 1:1 assessment with therapeutic communication, provided PRNs as requested, provided clear and simple instructions, provided direction and encouragement regarding performance of ADLs, and monitored Q15 minute safety checks. Restraints/seclusion/emergency medication: NA Justification of Continued Inpatient Treatment: Patient requires interruption of current crisis in a safe and therapeutic environment. Parents will not allow pt to live with them due to degree of mental illness, [facility] is pursuing conservatorship.
[2021-07-19 07:34] VITALS: BP 116/64
[2021-07-19] MEDS: folic acid 1mg tablet PO SCH (07:42)
[2021-07-19] MEDS: NICOTINE POLACRILEX 2 MG LOZENGE BC PRN ×5 (07:42→20:23)
[2021-07-19] MEDS: cyanocobalamin 500mcg tablet PO SCH (07:42)
[2021-07-19] MEDS: thiamine 100mg tablet PO SCH ×2 (07:42→20:20)
[2021-07-19] MEDS: olanzapine 10mg tablet PO SCH ×2 (07:42→20:20)
[2021-07-19] MEDS: clonazePAM 1mg tablet PO SCH ×2 (07:42→20:20)
[2021-07-19] MEDS: multivitamins, therapeutics tablet PO SCH (07:42)
[2021-07-19] MEDS: nicotine 21mg patch - 24 hr TD SCH (07:45)
--- NOTE | 2021-07-19 14:09 | NUR ---
Nursing Progress Note Legal hold: T-Con Client on involuntary status for GD Report received RN with use of SBAR Why they are here: Pt. is a direct admit from [facility]. Per report pt. withdrawing from ETOH after binge drinking for over a year. Pt. reportedly drinking 1 quart of whiskey daily. Pt. 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 He is experiencing AH. Pt. placed on 5150 for GD. Pt. had acute pancreatitis but was medically cleared for transfer. Pt. has been at [facility] since 05/24/21. Assessment What happened this shift: Received Pt in bed sleeping w/o distress at the beginning of the shift. Pt woke and was cooperative with vitals and returned to bed. Pt asked for a nicotine lozenge throughout the day and napped with headphones in the AM. Pt continued to listen to music during the rest of the day. Pt does not interact with other Pts much at all and is guarded with both other Pts and staff. Pt refused his Nicotine patch today stating I want to try and quit. Pt would like the shakes he was getting with breakfast and lunch. Pt reports 16 more days til hearing. Im bored and cooped up. S/I, H/I: Denies A/VH: + Delusions, but Pt denies Sleep: Napped ADL's: Independent Group attendance: NA Were Meds taken: Yes Any med S/E: None reported or noted Mental Status Exam Appearance: Disheveled in scrubs Eye contact: Good Behavior: Pleasant, isolative Speech: Coherent Mood: OK Affect: Constricted Thought process: Disorganized at times Thought Content: Getting needs met Cognition: A&O x2 to person and place Insight: Poor Judgment: Poor Interventions PRN's used: Nicotine lozenges Therapeutic interventions: 1:1 assessment with therapeutic communication, provided PRN as requested, encouraged patience to stay in the hospital until seen by a provider, provided clear and simple instructions, provided direction and encouragement regarding performance of ADLs, and monitored Q15 minute safety checks. Restraints/seclusion/emergency medication: NA Justification of Continued Inpatient Treatment: Patient requires interruption of current crisis in a safe and therapeutic environment. Parents will not allow pt to live with them due to degree of mental illness, [facility] is pursuing conservatorship.
[2021-07-19] MEDS: OLANZAPINE 5 MG TABLET PO PRN (16:37)
[2021-07-19 19:00] VITALS: BP 127/77
[2021-07-19] MEDS: traZODone 50mg tablet PO PRN (20:23)
--- NOTE | 2021-07-20 04:37 | NUR ---
Nursing Progress Note: Legal hold: TCON Client on involuntary status for GD/ DTS Report received from JOSE Yoo, with use of SBAR Why they are here: Pt. is a direct admit from [facility]. Per report pt. withdrawing from ETOH after binge drinking for over a year. Pt. reportedly drinking 1 quart of whiskey daily. Pt. 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 He is experiencing AH. Pt. placed on 5150 for GD. Pt. had acute pancreatitis but was medically cleared for transfer. Pt. has been at [facility] since 05/24/21. Assessment What happened this shift: Patient using exercise machine and watching TV at the beginning of shift. Pleasant and cooperative with care; compliant with medication. PRN Nicotine lozenge provided and patch removed. Patient denies SI, HI, A/VH. Patient observed sleeping and does not appear to be having difficulty. S/I, H/I: Denies A/VH: Denies Sleep: Refer to sleep assessment ADL's: Independent Group attendance: NA Were meds taken: Yes Any med S/E: None observed or reported Mental Status Exam Appearance: Hair unkempt, appropriately dressed in green unit attire Eye contact: Fair Behavior: Pleasant and cooperative, self-isolative, exercising Speech: Clear, normal rate, rhythm Mood: Depressed Affect: Flat Thought process: Linear with fixed delusions Thought Content: Meeting needs Cognition: A&O x3 Insight: Poor Judgment: Poor Interventions PRN's used: Nicotine lozenges Therapeutic interventions: 1:1 assessment with therapeutic communication, provided PRN as requested, encouraged participation on the unit and in group therapy, provided clear and simple instructions, provided direction and encouragement regarding performance of ADLs, attempted to orient to reality, and monitored Q15 minute safety checks. Restraints/seclusion/emergency medication: NA Justification of Continued Inpatient Treatment: Patient requires interruption of current crisis in a safe and therapeutic environment. Pursuing [facility] Conservatorship with [facility].
[2021-07-20] MEDS: cyanocobalamin 500mcg tablet PO SCH (07:28)
[2021-07-20] MEDS: multivitamins, therapeutics tablet PO SCH (07:28)
[2021-07-20] MEDS: thiamine 100mg tablet PO SCH ×2 (07:28→20:03)
[2021-07-20] MEDS: folic acid 1mg tablet PO SCH (07:29)
[2021-07-20] MEDS: olanzapine 10mg tablet PO SCH ×2 (07:29→20:03)
[2021-07-20] MEDS: NICOTINE POLACRILEX 2 MG LOZENGE BC PRN ×5 (07:29→18:17)
[2021-07-20] MEDS: clonazePAM 1mg tablet PO SCH ×2 (07:29→20:04)
[2021-07-20 08:00] VITALS: BP 123/64
[2021-07-20] MEDS: nicotine 21mg patch - 24 hr TD SCH (08:00)
--- NOTE | 2021-07-20 16:45 | NUR ---
Nursing Progress Note: Legal hold: T Con Client on voluntary/involuntary status for GD/DTS Report received from nurse with use of SBAR: Mimi Van RN Why are they here: Pt. is a direct admit from [facility]. Per report pt. withdrawing from ETOH after binge drinking for over a year. Pt. reportedly drinking 1 quart of whiskey daily. Pt. 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 He is experiencing AH. Pt. placed on 5150 for GD. Assessment What has happened this shift: Received pt. sleeping in bed at the beginning of the shift, he awoke and immediately requested a PRN Nicotine Lozenge. Pt's medications were administered and 1:1 was completed at bedside. Pt. presents as cooperative, guarded, and withdrawn. He denies any S/I or V/CLEMENTE, however reports ongoing A/CLEMENTE which he calls, "Voice data image induction." Pt. reports the messages go straight to his brain from the "Khush." Pt. also continues to make delusional statements regarding his fixed belief that he is being controlled by neuro technology. He states, "I'm not going to change from my convictions that I have been wrongly diagnosed with a mental disorder and am being controlled by neuro technology, but I know I have to find a balance." Pt. appears to be gaining some insight into the fact that he needs to balance these beliefs with living a normal daily life, instead of allowing them to become all-consuming. Pt. again talks about his plan to stay with his parents and finish college in a somewhat disorganized manner. Pt. napped intermittently during the shift, and remains guarded and withdrawn from others. He was encouraged to shower r/t a disheveled appearance. S/I, H/I: Denies A/VH: Ongoing A/CLEMENTE which pt. states are, "Voice data image induction." Sleep: Sleep hours are 8.25, and pt. naps intermittently during the shift ADL's: Pt. requires some encouragement and direction Group attendance: N/A Were meds taken: Yes Any med S/E: None Mental Status Exam Appearance: Hair and clothing are disheveled, pt. was encouraged to shower Eye contact: Good Behavior: Cooperative,guarded, and withdrawn Speech: WNL, becomes somewhat hyperverbal when discussing fixed paranoid delusions Mood: Guarded Affect: Blunted Thought process: Somewhat tangental at times Thought Content: Ongoing paranoid delusions and A/CLEMENTE Cognition: A&O X3 (not to reason here) Insight: Poor Judgment: Poor Interventions PRN's used: Nicotine Lozenges Therapeutic interventions: Maintained a safe and supportive environment, ensured contract for safety, provided clear and simple instructions, attempted to orient to reality, encouraged participation on the unit and provided needed direction and encouragement to perform ADLs, and maintained Q 15min safety checks. Restraints/seclusion/emergency medication: N/A Justification of Continued Inpatient Treatment: Per Dr. Pitt, pt. continues to require a safe and supportive environment r/t GD and continues to exhibit lack of insight into his mental illness.
[2021-07-20 19:41] VITALS: BP 107/62
[2021-07-20] MEDS: clozapine 25mg tablet PO SCH (20:03)
[2021-07-20] MEDS: traZODone 50mg tablet PO PRN (20:15)
--- NOTE | 2021-07-21 01:49 | NUR ---
Nursing Progress Note: Legal hold: T Con Client on voluntary/involuntary status for GD/DTS Report received from JOSE Yoo with use of SBAR: Why are they here: Pt. is a direct admit from [facility]. Per report pt. withdrawing from ETOH after binge drinking for over a year. Pt. reportedly drinking 1 quart of whiskey daily. Pt. 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 He is experiencing AH. Pt. placed on 5150 for GD. Assessment What has happened this shift: Patient seen in his room for 1:1. He has started to spend more time in his room isolating. He may be doing this to discourage himself from sharing his delusions. He continues to deny he has any mental illness, and still believes he is being controlled by alvaro or neuro technology. He is compliant with his medications, though he believes he doesn't need them. Patient denies mental health symptoms, but continues to report that it's called "voice data image induction" that is altering his thinking. Patient periodically requests PRN nicotine lozenges. S/I, H/I: Denies A/VH: + AV/H Sleep: See sleep assessment ADL's: Pt. requires some encouragement and direction Group attendance: N/A Were meds taken: Yes Any med S/E: None reported or observed. Mental Status Exam Appearance: Young man in unit scrubs, looking clean, but still disheveled. Eye contact: Good Behavior: Cooperative, guarded, and withdrawn Speech: Normal Mood: Guarded Affect: Blunted Thought process: Somewhat tangential at times Thought Content: Ongoing paranoid delusions and A/CLEMENTE Cognition: A&O X3 (not to reason here) Insight: Poor Judgment: Poor Interventions PRN's used: Nicotine Lozenges Therapeutic interventions: Maintained a safe and supportive environment, ensured contract for safety, provided clear and simple instructions, attempted to orient to reality, encouraged participation on the unit and provided needed direction and encouragement to perform ADLs, and maintained Q 15min safety checks. Restraints/seclusion/emergency medication: N/A Justification of Continued Inpatient Treatment: Per Dr. Pitt, pt. continues to require a safe and supportive environment r/t GD and continues to exhibit lack of insight into his mental illness.
[2021-07-21] MEDS: cyanocobalamin 500mcg tablet PO SCH (07:45)
[2021-07-21] MEDS: clonazePAM 1mg tablet PO SCH ×2 (07:46→20:04)
[2021-07-21] MEDS: NICOTINE POLACRILEX 2 MG LOZENGE BC PRN ×5 (07:46→21:07)
[2021-07-21] MEDS: multivitamins, therapeutics tablet PO SCH (07:46)
[2021-07-21] MEDS: folic acid 1mg tablet PO SCH (07:46)
[2021-07-21] MEDS: OLANZAPINE 5 MG TABLET PO SCH ×2 (07:46→23:06)
[2021-07-21] MEDS: thiamine 100mg tablet PO SCH ×2 (07:46→20:04)
[2021-07-21] MEDS: clozapine 25mg tablet PO SCH ×2 (07:46→20:04)
[2021-07-21] MEDS: nicotine 21mg patch - 24 hr TD SCH (08:00)
[2021-07-21 08:20] VITALS: BP 103/67
--- NOTE | 2021-07-21 15:53 | NUR ---
Nursing Progress Note Legal hold: T-Con Client on involuntary status for GD Report received from Aylin GARCIA with use of SBAR Why they are here: Pt. is a direct admit from [facility]. Per report pt. withdrawing from ETOH after binge drinking for over a year. Pt. reportedly drinking 1 quart of whiskey daily. Pt. 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 He is experiencing AH. Pt. placed on 5150 for GD. Pt. had acute pancreatitis but was medically cleared for transfer. Pt. has been at [facility] since 05/24/21. Assessment What happened this shift: Received Pt in bed sleeping w/o distress at the beginning of the shift. Pt woke and was cooperative with vitals and returned to bed. Pt asked for a nicotine lozenge throughout the day and napped with headphones in the AM. Pt continued to listen to music during the rest of the day. Pt does not interact with other Pts much at all and is guarded with both other Pts and staff. Pt refused his Nicotine patch and states he's just trying to use the lozenges. S/I, H/I: Denies A/VH: + Delusions, but Pt denies Sleep: Napped ADL's: Independent Group attendance: NA Were Meds taken: Yes Any med S/E: None reported or noted Mental Status Exam Appearance: Disheveled in scrubs Eye contact: Good Behavior: Pleasant, isolative Speech: Coherent Mood: OK Affect: Constricted Thought process: Disorganized at times Thought Content: Getting needs met Cognition: A&O x2 to person and place Insight: Poor Judgment: Poor Interventions PRN's used: Nicotine lozenges Therapeutic interventions: 1:1 assessment with therapeutic communication, provided PRN as requested, encouraged patience to stay in the hospital until seen by a provider, provided clear and simple instructions, provided direction and encouragement regarding performance of ADLs, and monitored Q15 minute safety checks. Restraints/seclusion/emergency medication: NA Justification of Continued Inpatient Treatment: Patient requires interruption of current crisis in a safe and therapeutic environment. Parents will not allow pt to live with them due to degree of mental illness, [facility] is pursuing conservatorship.
[2021-07-21 19:51] VITALS: BP 138/78
[2021-07-21] MEDS: olanzapine 10mg tablet PO SCH (20:04)
[2021-07-21] MEDS: traZODone 50mg tablet PO PRN ×2 (20:05→21:05)
--- NOTE | 2021-07-22 01:16 | NUR ---
Nursing Progress Note: Legal hold: T-Con Client on voluntary/involuntary status for GD/DTS Report received from JOSE Yoo with use of SBAR: Why are they here: Pt. is a direct admit from [facility]. Per report pt. withdrawing from ETOH after binge drinking for over a year. Pt. reportedly drinking 1 quart of whiskey daily. Pt. 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 He is experiencing AH. Pt. placed on 5150 for GD. Assessment What has happened this shift: Patient seen for 1:1 in the community room as he sat on the exercise bike. He appears clean, and seems to be taking better care of his personal responsibilities, like hygiene. He continues to be guarded, and is keeping his delusions to himself. He says he is trying to be "more balanced." Patient still believes he has no mental illness, but is compliant with his medications. Patient denies all MH symptoms. No delusional content shared tonight. He went to his room after snack and med pass, but came out ~ an hour later to request a repeat of his Trazodone. He is observed sleeping calmly in his room. S/I, H/I: Denies A/VH: Denies Sleep: See sleep assessment ADL's: Pt. requires some encouragement and direction Group attendance: N/A Were meds taken: Yes Any med S/E: None reported or observed. Mental Status Exam Appearance: Young man in unit scrubs, looking clean, but still disheveled. Eye contact: Good Behavior: Cooperative, guarded, isolative, and withdrawn Speech: Normal Mood: Guarded Affect: Blunted with brightening Thought process: Somewhat tangential at times Thought Content: Ongoing paranoid delusions and A/CLEMENTE Cognition: A&O X3 (not to reason here) Insight: Poor Judgment: Poor Interventions PRN's used: Nicotine Lozenges, Trazodone Therapeutic interventions: Maintained a safe and supportive environment, ensured contract for safety, provided clear and simple instructions, attempted to orient to reality, encouraged participation on the unit and provided needed direction and encouragement to perform ADLs, and maintained Q 15min safety checks. Restraints/seclusion/emergency medication: N/A Justification of Continued Inpatient Treatment: Per Dr. Pitt, pt. continues to require a safe and supportive environment r/t GD and continues to exhibit lack of insight into his mental illness.
[2021-07-22] MEDS: clozapine 25mg tablet PO SCH ×2 (07:42→20:01)
[2021-07-22] MEDS: multivitamins, therapeutics tablet PO SCH (07:43)
[2021-07-22] MEDS: folic acid 1mg tablet PO SCH (07:43)
[2021-07-22] MEDS: clonazePAM 1mg tablet PO SCH ×2 (07:43→20:01)
[2021-07-22] MEDS: thiamine 100mg tablet PO SCH ×2 (07:43→20:01)
[2021-07-22] MEDS: cyanocobalamin 500mcg tablet PO SCH (07:43)
[2021-07-22] MEDS: OLANZAPINE 5 MG TABLET PO SCH ×2 (07:43→20:01)
[2021-07-22] MEDS: NICOTINE POLACRILEX 2 MG LOZENGE BC PRN ×5 (07:44→20:56)
[2021-07-22] MEDS: nicotine 21mg patch - 24 hr TD SCH (07:46)
[2021-07-22 08:27] VITALS: BP 109/71
--- NOTE | 2021-07-22 13:30 | NUR ---
Nursing Progress Note Legal hold: T-Con Client on involuntary status for GD Report received RN with use of SBAR Why they are here: Pt. is a direct admit from [facility]. Per report pt. withdrawing from ETOH after binge drinking for over a year. Pt. reportedly drinking 1 quart of whiskey daily. Pt. 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 He is experiencing AH. Pt. placed on 5150 for GD. Pt. had acute pancreatitis but was medically cleared for transfer. Pt. has been at [facility] since 05/24/21. Assessment What happened this shift: Received Pt in bed sleeping w/o distress at the beginning of the shift. Pt woke and was cooperative with vitals and returned to bed. Pt ate breakfast and lunch well and was cooperative, yet guarded around AM assessments. Pt continues to not want Nicotine patch in AM but uses lozenges throughout the day. Continues to isolate in room and listens to headphones when walking halls. Overall pleasant, polite and cooperative. Pt is willing to air his frustrations about being on [facility] and continues to ask about how he can get out of his T-Con. S/I, H/I: Denies A/VH: + Delusions, but Pt denies Sleep: Napped ADL's: Independent Group attendance: NA Were Meds taken: Yes Any med S/E: None reported or noted Mental Status Exam Appearance: Disheveled in scrubs Eye contact: Good Behavior: Pleasant, guarded, isolative Speech: Coherent Mood: Im OK Affect: Constricted Thought process: Can be disorganized Thought Content: Getting needs met Cognition: A&O x2 to person and place Insight: Poor Judgment: Poor Interventions PRN's used: Nicotine lozenges Therapeutic interventions: 1:1 assessment with therapeutic communication, provided PRN as requested, encouraged patience to stay in the hospital until seen by a provider, provided clear and simple instructions, provided direction and encouragement regarding performance of ADLs, and monitored Q15 minute safety checks. Restraints/seclusion/emergency medication: NA Justification of Continued Inpatient Treatment: Patient requires interruption of current crisis in a safe and therapeutic environment. Parents will not allow pt to live with them due to degree of mental illness, [facility] is pursuing conservatorship.
[2021-07-22 19:56] VITALS: BP 127/73
[2021-07-22] MEDS: traZODone 50mg tablet PO PRN ×2 (20:02→20:55)
[2021-07-22] MEDS: magnesium hydroxide 30ml (MOM) UD suspension PO PRN (21:05)
--- NOTE | 2021-07-23 00:15 | NUR ---
Nursing Progress Note: Legal hold: T-Con Client on voluntary/involuntary status for GD/DTS Report received from JOSE Yoo with use of SBAR: Why are they here: Pt. is a direct admit from [facility]. Per report pt. withdrawing from ETOH after binge drinking for over a year. Pt. reportedly drinking 1 quart of whiskey daily. Pt. 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 He is experiencing AH. Pt. placed on 5150 for GD. Assessment What has happened this shift: The patient was seen at bedside for 1:1. He was stretching and exercising at the time. "I do this to help relieve some of the boredom during the day." The patient is always polite and cooperative, but is not saying much anymore. He seems to be keeping his delusional thoughts to himself. Patient is not so quiet when it comes to discharging. He is looking for any angle that will keep him from being conserved, including a quick discharge that he believes will stop the process. He is compliant with medications, and requests repeat Trazodone after trying to sleep for an hour. Patient continues to deny all MH symptoms, although he could be heard having long conversations with his voices. He is sleeping at this time. S/I, H/I: Denies A/VH: Denies Sleep: See sleep assessment ADL's: Pt. requires some encouragement and direction Group attendance: N/A Were meds taken: Yes Any med S/E: None reported or observed. Mental Status Exam Appearance: Young man in unit scrubs, looking clean and less disheveled. Eye contact: Good Behavior: Cooperative, guarded, isolative, and withdrawn Speech: Normal Mood: Guarded Affect: Blunted with brightening Thought process: Somewhat tangential at times Thought Content: Ongoing paranoid delusions and A/CLEMENTE Cognition: A&O X3 (not to reason here) Insight: Poor Judgment: Poor Interventions PRN's used: Nicotine Lozenges, Trazodone Therapeutic interventions: Maintained a safe and supportive environment, ensured contract for safety, provided clear and simple instructions, attempted to orient to reality, encouraged participation on the unit and provided needed direction and encouragement to perform ADLs, and maintained Q 15min safety checks. Restraints/seclusion/emergency medication: N/A Justification of Continued Inpatient Treatment: Per Dr. Pitt, pt. continues to require a safe and supportive environment r/t GD and continues to exhibit lack of insight into his mental illness.
[2021-07-23] MEDS: multivitamins, therapeutics tablet PO SCH (07:17)
[2021-07-23] MEDS: NICOTINE POLACRILEX 2 MG LOZENGE BC PRN ×5 (07:17→18:20)
[2021-07-23] MEDS: cyanocobalamin 500mcg tablet PO SCH (07:17)
[2021-07-23] MEDS: folic acid 1mg tablet PO SCH (07:18)
[2021-07-23] MEDS: thiamine 100mg tablet PO SCH ×2 (07:18→20:22)
[2021-07-23] MEDS: clozapine 25mg tablet PO SCH ×2 (07:18→20:22)
[2021-07-23] MEDS: clonazePAM 1mg tablet PO SCH ×2 (07:18→20:23)
[2021-07-23 07:36] VITALS: BP 124/76
[2021-07-23] MEDS: nicotine 21mg patch - 24 hr TD SCH (08:00)
[2021-07-23] MEDS: magnesium hydroxide 30ml (MOM) UD suspension PO PRN (10:31)
--- NOTE | 2021-07-23 12:57 | NUR ---
Nursing Progress Note: Legal hold: T Con Client on voluntary/involuntary status for GD/DTS Report received from nurse with use of SBAR: JOSE Cortez Why are they here: Pt. is a direct admit from [facility]. Per report pt. withdrawing from ETOH after binge drinking for over a year. Pt. reportedly drinking 1 quart of whiskey daily. Pt. 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 He is experiencing AH. Pt. placed on 5150 for GD. Assessment What has happened this shift: Received pt. sleeping in bed at the beginning of the shift, he was awoken to attend breakfast in the Group Room, and afterwards approached this lyric writer requesting a Nicotine Lozenge as is his routine. 1:1 was completed at bedside, and pt. continues to present as guarded and withdrawn. When questioned regarding his mood, pt. states, "I'm depressed and frustrated with all the wishy washiness here. I want to leave today." Pt. goes on to perseverate on his belief that he will be able to leave prior to his conservatorship hearing if the MD writes him a letter. Pt. does not make any spontaneous delusional statements this shift. His hair and clothing appear very disheveled and unkempt, and he was again encouraged to shower and provided education regarding the importance of personal hygiene. Pt. reports some understanding. Pt. again napped intermittently during the shift, and remains guarded and withdrawn from others. S/I, H/I: Denies A/VH: Pt. was not observed to be responding to internal stimuli Sleep: Sleep hours are 8, and pt. naps intermittently during the shift ADL's: Pt. requires encouragement and direction Group attendance: No Were meds taken: Yes Any med S/E: None Mental Status Exam Appearance: Hair and clothing are very disheveled, pt. continues to be encouraged to shower Eye contact: Good Behavior: Cooperative,guarded, and withdrawn Speech: WNL and articulate Mood: Guarded Affect: Blunted Thought process: Linear, becomes tangental at times Thought Content: Ongoing paranoid delusions regarding neruotechnology Cognition: A&O X3 (not to reason here) Insight: Poor Judgment: Poor Interventions PRN's used: Nicotine Lozenges Therapeutic interventions: Maintained a safe and supportive environment, ensured contract for safety, provided clear and simple instructions, attempted to orient to reality, encouraged participation on the unit and provided needed direction and encouragement to perform ADLs, and maintained Q 15min safety checks. Restraints/seclusion/emergency medication: N/A Justification of Continued Inpatient Treatment: Per Dr. Del Toro, pt. continues to require medication adjustments and a safe and supportive environment. He does not have a viable plan for discharge.
[2021-07-23] MEDS: traZODone 50mg tablet PO PRN (20:21)
[2021-07-23] MEDS: OLANZAPINE 5 MG TABLET PO SCH (20:22)
[2021-07-23 20:48] VITALS: BP 120/77
[2021-07-23 21:09] VITALS: BP 120/77
--- NOTE | 2021-07-24 02:38 | NUR ---
Nursing Progress Note: Legal hold: T Con Client on voluntary/involuntary status for GD/DTS Report received from nurse with use of SBAR: JOSE Lay Why are they here: Pt. is a direct admit from [facility]. Per report pt. withdrawing from ETOH after binge drinking for over a year. Pt. reportedly drinking 1 quart of whiskey daily. Pt. 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 He is experiencing AH. Pt. placed on 5150 for GD. Assessment What has happened this shift: Patient was found sleeping at beginning of shift. Patient isolated in room listening to headphones all shift. Patient only came out of room to ask for medications early before returning to room. Patient did not participate in snack or socialize with other patient. Patient took all night medications including requested prn trazodone. Patient had no difficulty sleeping. S/I, H/I: Denies A/VH: Denies Sleep: See sleep assessment ADL's: Pt. requires encouragement and direction Group attendance: No Were meds taken: Yes Any med S/E: None Mental Status Exam Appearance:Young man with scruffy hair dressed in green unit scrubs Eye contact: Good Behavior: Cooperative,guarded, and withdrawn Speech: WNL and articulate Mood: Guarded Affect: Blunted Thought process: Linear, becomes tangental at times Thought Content: Wants to go to sleep and be left alone Cognition: A&O X3 (not to reason here) Insight: Poor Judgment: Poor Interventions PRN's used: Therapeutic interventions: Maintained a safe and supportive environment, ensured contract for safety, provided clear and simple instructions, attempted to orient to reality, encouraged participation on the unit and provided needed direction and encouragement to perform ADLs, and maintained Q 15min safety checks. Restraints/seclusion/emergency medication: N/A Justification of Continued Inpatient Treatment: Per Dr. Del Toro, pt. continues to require medication adjustments and a safe and supportive environment. He does not have a viable plan for discharge.
--- NOTE | 2021-07-24 07:18 | NUR ---
Reassessment: Pt continues eating well with mostly 100% PO intake while receiving double protein TID Per roll tester pt participating in some snacks. Recommend discontinuing double protein TID as pt exceeding estimated energy and protein needs by greater than 200% with just PO intake of meals alone. Pt +16 kg since admit two months ago. LBM 07/22. Will continue to follow. Recommendations: 1. Continue regular diet with double protein TID per diet order. Discontinue double protein 3. Continue routine Thiamine, Folic acid, and MVI given EtOH hx 4. Bowel care per rx 5. Weekly scaled wts Addendum: 07/24/21 at [address] Amended: Links added.
[2021-07-24] MEDS: clonazePAM 1mg tablet PO SCH ×2 (07:20→20:12)
[2021-07-24] MEDS: folic acid 1mg tablet PO SCH (07:21)
[2021-07-24] MEDS: multivitamins, therapeutics tablet PO SCH (07:21)
[2021-07-24] MEDS: cyanocobalamin 500mcg tablet PO SCH (07:21)
[2021-07-24] MEDS: thiamine 100mg tablet PO SCH ×2 (07:21→20:11)
[2021-07-24] MEDS: clozapine 25mg tablet PO SCH ×2 (07:21→20:11)
[2021-07-24] MEDS: NICOTINE POLACRILEX 2 MG LOZENGE BC PRN ×5 (07:21→21:10)
[2021-07-24 07:38] VITALS: BP 125/75
[2021-07-24] MEDS: nicotine 21mg patch - 24 hr TD SCH (08:00)
--- NOTE | 2021-07-24 16:36 | NUR ---
Nursing Progress Note: Legal hold: T Con Client on voluntary/involuntary status for GD/DTS Report received from nurse with use of SBAR: JOSE Barragan Why are they here: Pt. is a direct admit from [facility]. Per report pt. withdrawing from ETOH after binge drinking for over a year. Pt. reportedly drinking 1 quart of whiskey daily. Pt. 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 He is experiencing AH. Pt. placed on 5150 for GD. Assessment What has happened this shift: RN received pt. asleep in bed at start of shift. Pt. awoke for breakfast and took all medications. 1:1 done at bedside, pt. denies all psych symptoms and states he feels hopeful for the future. Pt. 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 Pt. reports he is being unjustly held in the hospital. Pt. requested headphones and was observed lying in bed and listening to them. Pt. isolated to his room for much of the shift. S/I, H/I: Denies A/VH: Denies Sleep: Pt. slept 8 hrs on NOC shift and did not appear to sleep during the day. ADL's: Pt. requires encouragement and direction Group attendance: NA Were meds taken: Yes Any med S/E: Denies. None observed. Mental Status Exam Appearance: Hair and clothing are disheveled. Eye contact: WNL Behavior: Cooperative, guarded, and withdrawn Speech: WNL and articulate Mood: Anxious Affect: Flat Thought process: Linear Thought Content: Perseverates on belief he is being wrongfully held. Cognition: A&O X3 (not to circumstance) Insight: Poor Judgment: Poor Interventions PRN's used: Nicotine Lozenges Therapeutic interventions: Maintained a safe and supportive environment, ensured contract for safety, provided clear and simple instructions, attempted to orient to reality, encouraged participation on the unit and provided needed direction and encouragement to perform ADLs, and maintained Q 15min safety checks. Restraints/seclusion/emergency medication: N/A Justification of Continued Inpatient Treatment: Per Dr. Del Toro, pt. continues to require medication adjustments and a safe and supportive environment. He does not have a viable plan for discharge.
[2021-07-24 19:00] VITALS: BP 108/70
[2021-07-24] MEDS: OLANZAPINE 5 MG TABLET PO SCH (20:11)
[2021-07-24] MEDS: traZODone 50mg tablet PO PRN ×2 (20:13→21:10)
--- NOTE | 2021-07-25 01:55 | NUR ---
Nursing Progress Note: Legal hold: T Con Client on voluntary/involuntary status for GD/DTS Report received from nurse with use of SBAR: JOSE Lay Admit note: Pt. is a direct admit from [facility]. Per report pt. withdrawing from ETOH after binge drinking for over a year. Pt. reportedly drinking 1 quart of whiskey daily. Pt. 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 He is experiencing AH. Pt. placed on 5150 for GD. Assessment What happened this shift: Patient was found working out on exercise bike in community room at beginning of shift. Patient did not self isolate in room but was social and polite. Patient was later found walking around listening to headphones. Patient requested prn trazodone to be added to night medications. Patient participated in snack and took night medications without issue. Patient asked for repeat trazodone 45 mins later.
[2021-07-25] MEDS: thiamine 100mg tablet PO SCH (07:21)
[2021-07-25] MEDS: cyanocobalamin 500mcg tablet PO SCH (07:21)
[2021-07-25] MEDS: clonazePAM 1mg tablet PO SCH (07:21)
[2021-07-25] MEDS: folic acid 1mg tablet PO SCH (07:21)
[2021-07-25] MEDS: NICOTINE POLACRILEX 2 MG LOZENGE BC PRN ×2 (07:21→09:41)
[2021-07-25] MEDS: multivitamins, therapeutics tablet PO SCH (07:21)
[2021-07-25] MEDS: clozapine 25mg tablet PO SCH (07:21)
[2021-07-25 08:00] VITALS: BP 128/77
[2021-07-25 08:00] LABS: BASOPHILS # (AUTO) 0.1 X10'3 (0-0.2); BASOPHILS % (AUTO) 0.9 % (0-1); EOSINOPHILS # (AUTO) 0.2 X10'3 (0-0.9); EOSINOPHILS % (AUTO) 2.6 % (0-6); HEMATOCRIT 43.6 % (42.0-52.0); HEMOGLOBIN 14.8 g/dl (14.0-17.9); LYMPHOCYTES # (AUTO) 1.8 X10'3 (1.1-4.8); LYMPHOCYTES % (AUTO) 29.4 % (21-51); MEAN CORPUSCULAR HEMOGLOBIN 32.6 PG (27.0-31.0); MEAN CORPUSCULAR HGB CONC 33.9 g/dL (33.0-36.5); MEAN CORPUSCULAR VOLUME 96.3 FL (78-98); MONOCYTES # (AUTO) 0.6 X10'3 (0-0.9); MONOCYTES % (AUTO) 9.1 % (2-12); NEUTROPHILS # (AUTO) 3.6 X10'3 (1.8-7.7); PLATELET COUNT 273 X10'3 (140-440); RED BLOOD COUNT 4.52 X10'6 (4.70-6.10); RED CELL DISTRIBUTION WIDTH 12.4 % (11.5-14.5); WHITE BLOOD COUNT 6.1 X10'3 (4.5-11.0)
[2021-07-25] MEDS: nicotine 21mg patch - 24 hr TD SCH (08:00)
[2021-07-25] MEDS ORDERED: NICO-687 TD (08:05)
[2021-07-25] MEDS ORDERED: OLAN5TAB75 PO (08:05)
[2021-07-25] MEDS ORDERED: CLOZ25TA12 PO (08:05)
[2021-07-25] MEDS ORDERED: TRAZ-251 PO (08:05)
[2021-07-25] MEDS ORDERED: MULT-25 PO (08:05)
[2021-07-25] MEDS ORDERED: CLON1TAB12 PO (08:05)
--- NOTE | 2021-07-25 08:26 | NUR ---
PUBLIC GUARDIAN-DISCHARGE PLAN Maricel Montemayor, [facility] Public Guardian, sent principal technical writer the following email regarding Jose Alejandro's parents offering 3rd democrat assistance. Jose Alejandro can discharge from [facility] and return to his parents home with their support. His TCon will on 08/04/21. "I spoke with Dr. Del Toro and agree with his recommendations. I am in receipt of the third democrat assistance letter from [place] parents. Looks like the plan will be to discharge Jose Alejandro tomorrow. The t-con will stay in place until its expiration on August 04, 2021. We will not seek an ex-parte termination as it would not be processed until next week and that would delay his discharge." "Please coordinate outpatient services with [facility] and [facility]." JOSE Johnson
--- NOTE | 2021-07-25 09:16 | NUR ---
PARENTS OFFERING 3RD REPUBLICAN SUPPORT Spoke to Jose Alejandro's mom, Yamel (ph# [phone]), who confirmed that she and Jose Alejandro's dad are offering 3rd constitution party support and would like to pick him up today. Informed her of Jose Alejandro's upcoming appointment at [facility] on 07/28/[address] Espinal. Informed her he will need to walk-in for an assessment to continue services there. He also needs to walk in for a substance abuse assessment. Informed her all of this information will be in Jose Alejandro's discharge paperwork. Explained Jose Alejandro will need to get weekly labs to continue taking Clozaril. Yamel reported she has a document she would like Jose Alejandro to agree to and sign when she comes to pick him up today which outlines their expectations of him. Yamel reported she will be here to garbage pick up worker Jose Alejandro 11-11:30 today. Esthetician will go over discharge paperwork with her when she arrives. JOSE Johnson
--- NOTE | 2021-07-25 09:35 | NUR ---
[facility] in [place] called to say they cannot fill Clozaril at their pharmacy. [facility] [place]. Requested they send the Rx's there along with labs that freelance copywriter had faxed them. They reported they will do so. JOSE Johnson
--- NOTE | 2021-07-25 10:50 | NUR ---
DISCHARGE NOTE: Pt. discharged to home, picked up by mother in car. RN went over discharge paper work including d/c medications, f/u plan, emergency phone numbers (including 911), etc. Pt. given opportunity to ask questions. Pt. is verbalized understanding and signed all d/c paper work. Pt. is A&Ox4 and denies SI/HI, A/V hallucinations. Pt. calm and in no apparent distress. Pt. discharged with nicotine replacement prescription.
== END 2021-07-25 10:50 | disposition home or self-care (01) | DRG 750 ==
LOC: ADULT MH 12:28
PROVIDERS: ADMIT Psychiatry & Neurology Psychiatry; ATTEND Psychiatry & Neurology Psychiatry
DX: F20.9 Schizophrenia, unspecified (principal); K76.0 Fatty (change of) liver, not elsewhere classified; F29 Unspecified psychosis not due to a substance or known physiological condition; D53.9 Nutritional anemia, unspecified; F10.20 Alcohol dependence, uncomplicated; E78.5 Hyperlipidemia, unspecified; F12.10 Cannabis abuse, uncomplicated; F17.210 Nicotine dependence, cigarettes, uncomplicated; Z56.0 Unemployment, unspecified
CPT/HCPCS: 36415; 76700; 80053; 80061; 82140; 83036; 83690; 85007; 85025; 87081; Q0163